=== PATIENT | female | born 1960 | race Caucasian/White ===

== ENCOUNTER 2020-07-15 01:23 | Emergency (ER) | payer SELFPAY ==
[~2020-07-15] VITALS: Ht 165 cm; Wt 104.3 kg
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
[2020-07-15] MEDS ORDERED: TRAM-42 PO (05:38)
[2020-07-15 05:45] VITALS: BP 156/84
--- NOTE | 2020-07-15 06:39 | Diagnostic Imaging Report ---
INDICATION: leg pain TECHNIQUE: AP and lateral views of the left tibia and fibula CORRELATION STUDY: None FINDINGS: The tibia and fibula are intact. There is no evidence for acute fracture. Limited visualized portions of the knee and ankle are unremarkable. Soft tissues are unremarkable. IMPRESSION: 1.Negative for acute bony abnormality of the leg. Dictated by: Dictated on workstation # [id number]
--- NOTE | 2020-07-15 06:39 | Diagnostic Imaging Report ---
INDICATION: knee pain TECHNIQUE: 3 views of the left knee CORRELATION STUDY: None FINDINGS: The joint spaces are maintained. The articular surfaces are smooth and preserved. There is no acute bony abnormality. Soft tissues are unremarkable. IMPRESSION: 1. Negative for acute bony abnormality of the knee. Dictated by: Dictated on workstation # [id number]
== END 2020-07-15 05:46 | disposition home or self-care (01) ==
LOC: ER 01:31
DX: S80.12XA Contusion of left lower leg, initial encounter (principal); S70.01XA Contusion of right hip, initial encounter; S70.02XA Contusion of left hip, initial encounter; M25.562 Pain in left knee; Z87.828 Personal history of other (healed) physical injury and trauma; W22.8XXA Striking against or struck by other objects, initial encounter
CPT/HCPCS: 36415; 73562; 73590; 85379

== ENCOUNTER 2020-08-05 01:34 | Emergency (ER) | payer MEDICAID ==
[~2020-08-05] VITALS: Ht 165 cm; Wt 108.0 kg
[~2020-08-05 01:34] MED LIST: TRAM-42 PO
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
[2020-08-05 02:21] LABS: BASOPHILS # (AUTO) 0.1 10^3/uL (0.0-0.1); BASOPHILS % (AUTO) 1 % (0-10); EOSINOPHILS # (AUTO) 0.2 10^3/uL (0.0-0.3); EOSINOPHILS % (AUTO) 2 % (0-10); HEMATOCRIT 39 % (35-52); HEMOGLOBIN 12.9 g/dL (11.5-16.0); LYMPHOCYTES # (AUTO) 1.5 10^3/uL (1.0-4.0); LYMPHOCYTES % (AUTO) 19 % (12-44); MEAN CORPUSCULAR HEMOGLOBIN 30 pg (25-34); MEAN CORPUSCULAR HGB CONC 33 g/dL (32-36); MEAN CORPUSCULAR VOLUME 90 fL (80-99); MEAN PLATELET VOLUME 10.1 fL (9.0-12.2); MONOCYTES # (AUTO) 0.7 10^3/uL (0.0-1.0); MONOCYTES % (AUTO) 9 % (0-12); NEUTROPHILS # (AUTO) 5.4 10^3/uL (1.8-7.8); NEUTROPHILS % (AUTO) 68 % (42-75); PLATELET COUNT 241 10^3/uL (130-400)
[2020-08-05 02:31] LABS: ALBUMIN 3.8 GM/DL (3.2-4.5); CHLORIDE 109 MMOL/L (98-107); POTASSIUM 3.7 MMOL/L (3.6-5.0); SODIUM 142 MMOL/L (135-145)
[2020-08-05 02:32] LABS: CALCIUM 9.6 MG/DL (8.5-10.1)
[2020-08-05 02:34] LABS: GLUCOSE 85 MG/DL (70-105); TOTAL PROTEIN 6.8 GM/DL (6.4-8.2)
[2020-08-05 02:35] LABS: BILIRUBIN,TOTAL 0.2 MG/DL (0.1-1.0); CARBON DIOXIDE 19 MMOL/L (21-32)
[2020-08-05 02:37] LABS: ALKALINE PHOSPHATASE 88 U/L (40-136); GFR ESTIMATED > 60
[2020-08-05 02:38] LABS: BUN/CREATININE RATIO 31
[2020-08-05 02:40] LABS: ALANINE AMINOTRANSFERASE 10 U/L (0-55)
[2020-08-05 02:41] LABS: BILIRUBIN,URINE NEGATIVE (NEGATIVE); CLARITY,URINE CLEAR; COLOR,URINE YELLOW; GLUCOSE, URINE (UA) NEGATIVE (NEGATIVE); KETONES,URINE NEGATIVE (NEGATIVE); LEUKOCYTE ESTERASE ,URINE 2+ (NEGATIVE); NITRITE,URINE NEGATIVE (NEGATIVE); PROTEIN,URINE NEGATIVE (NEGATIVE)
[2020-08-05 03:06] LABS: BACTERIA,URINE MODERATE /HPF
[2020-08-05 03:07] LABS: AMPHETAMINE SCREEN, URINE NEGATIVE (NEGATIVE); BARBITURATE SCREEN URINE NEGATIVE (NEGATIVE); BENZODIAZEPINES SCREEN URINE NEGATIVE (NEGATIVE); CANNABINOID SCREEN, URINE NEGATIVE (NEGATIVE); COCAINE SCREEN URINE NEGATIVE (NEGATIVE); METHADONE STAT NEGATIVE (NEGATIVE); METHAMPHETAMINE SCREEN URINE S NEGATIVE (NEGATIVE); OPIATE SCREEN URINE NEGATIVE (NEGATIVE); OXYCODONE STAT NEGATIVE (NEGATIVE); PROPOXYPHENE STAT NEGATIVE (NEGATIVE); SQUAMOUS EPITHELIAL CELL,UR 0-2 /HPF; TRICYCLIC ANTIDEPRESSANTS SCRE NEGATIVE (NEGATIVE)
[2020-08-05] MEDS ORDERED: TRM50T PO (03:33)
[2020-08-05] MEDS ORDERED: CYCL10TA9 PO (03:33)
[2020-08-05] MEDS ORDERED: NITR-65 PO (03:37)
[2020-08-05 04:27] VITALS: BP 127/88
[2020-08-05] MEDS ORDERED: CYCLOBENZAPRINE 10 MG (FLEXERIL) TAB PO ONE (04:30)
--- NOTE | 2020-08-05 08:03 | Diagnostic Imaging Report ---
INDICATION: Fall with right-sided chest pain. Frontal chest obtained at 0253 a.m. Heart is borderline in size. Mediastinal silhouette is unremarkable. The lungs are clear. There is no pneumothorax or pleural fluid. IMPRESSION: Borderline heart size with no acute process in the chest. Dictated by: Dictated on workstation # [id number]
--- NOTE | 2020-08-05 08:03 | Diagnostic Imaging Report ---
INDICATION: Fall with right shoulder pain AP, oblique, and transscapular views of the right shoulder are obtained. No fracture or acute bony abnormality is seen. There is mild degenerative change of the glenohumeral joint and AC joint. IMPRESSION: Mild degenerative findings, no acute fracture or dislocation. Dictated by: Dictated on workstation # [id number]
--- NOTE | 2020-08-05 08:04 | Diagnostic Imaging Report ---
INDICATION: Right femur pain post trauma AP and lateral views of the right femur are obtained. No fracture or acute bony abnormality is seen. Right hip prosthesis appears in good alignment. IMPRESSION: No acute abnormality of right femur. Dictated by: Dictated on workstation # [id number]
--- NOTE | 2020-08-05 08:08 | Diagnostic Imaging Report ---
Indication: Pelvic pain and right hip pain AP pelvis and AP and oblique views of the right hip are obtained. No fracture or acute bony abnormality is seen. Right hip prosthesis appears in good alignment. IMPRESSION: No acute abnormality of the pelvis or right hip. Well aligned right hip prosthesis. Dictated by: Dictated on workstation # [id number]
--- NOTE | 2020-08-05 08:19 | Diagnostic Imaging Report ---
INDICATION: Fall with right-sided pain. TECHNIQUE: Multiple contiguous axial images were obtained through the chest, abdomen, and pelvis after the administration of intravenous contrast. Auto Exposure Controls were utilized during the CT exam to meet ALARA standards for radiation dose reduction. CT chest, abdomen, and pelvis obtained with IV contrast. There is no prior study for comparison. CT chest findings: There is no evidence of mediastinal hematoma or aortic injury. There is no mediastinal or hilar adenopathy. There is no chest wall hematoma or mass. There is no pleural or pericardial fluid. Lung parenchymal windows demonstrate no pulmonary infiltrates or nodules. There is no pneumothorax. Bony windows in the chest show no fractures. A stimulator device is seen overlying the thoracic canal. CT abdomen and pelvis findings: The liver appears unremarkable. The gallbladder is absent. Spleen, adrenals, pancreas, and kidneys appear intact. There is a small cyst in the left kidney. There is no retroperitoneal hematoma or mass. There is no ascites or hemoperitoneum. Visualized bowel loops are unremarkable. Patient has had previous hysterectomy. There is a right hip prosthesis. Bony windows show no fracture. There are facet degenerative changes in the lumbar spine. IMPRESSION: CT chest shows no acute traumatic process in the chest. CT abdomen and pelvis shows no evidence of solid organ injury or free fluid. There is a small cyst in the left kidney. Patient has had prior cholecystectomy and hysterectomy. Dictated by: Dictated on workstation # [id number]
== END 2020-08-05 04:27 | disposition home or self-care (01) ==
LOC: EDUNIT# 01:34 → ER 01:38
DX: M25.511 Pain in right shoulder (principal); M25.551 Pain in right hip; R07.89 Other chest pain; N39.0 Urinary tract infection, site not specified; E66.01 Morbid (severe) obesity due to excess calories; Z68.38 Body mass index [BMI] 38.0-38.9, adult
CPT/HCPCS: 71045; 71260; 73030; 73502; 73552; 74177; 80053; 80306; 81000; 85025; 87077; 87088; 93041; 99284; G0480; 36415; 80320; 87186

== ENCOUNTER 2020-09-11 17:22 | Emergency (ER) | payer MEDICARE, MEDICAID ==
[~2020-09-11] VITALS: Ht 165.1 cm; Wt 104.3 kg
[~2020-09-11 17:22] MED LIST changes: +CYCL10TA9 PO; +NITR-65 PO; +TRM50T PO
[2020-09-11] MEDS ORDERED: ONDANSETRON 4 MG/2 ML (SDV) Z0FRAN IV ONE (17:45)
[2020-09-11] MEDS ORDERED: ACETAMINOPHEN 325 MG TABLET PO ONE (17:45)
[2020-09-11] MEDS ORDERED: LACTATED RINGERS 1,000 ML IV SCH (17:45)
[2020-09-11 18:04] LABS: BASOPHILS % (AUTO) 0 % (0-10); EOSINOPHILS % (AUTO) 0 % (0-10); HEMATOCRIT 46 % (35-52); HEMOGLOBIN 15.3 g/dL (11.5-16.0); LYMPHOCYTES # (AUTO) 0.7 10^3/uL (1.0-4.0); LYMPHOCYTES % (AUTO) 9 % (12-44); MEAN CORPUSCULAR HEMOGLOBIN 29 pg (25-34); MEAN CORPUSCULAR HGB CONC 33 g/dL (32-36); MEAN CORPUSCULAR VOLUME 87 fL (80-99); MEAN PLATELET VOLUME 10.1 fL (9.0-12.2); MONOCYTES # (AUTO) 0.2 10^3/uL (0.0-1.0); MONOCYTES % (AUTO) 2 % (0-12); NEUTROPHILS # (AUTO) 6.8 10^3/uL (1.8-7.8); NEUTROPHILS % (AUTO) 88 % (42-75); PLATELET COUNT 168 10^3/uL (130-400); WHITE BLOOD COUNT 7.7 10^3/uL (4.3-11.0)
--- NOTE | 2020-09-11 18:07 | ED Respiratory ---
General Chief Complaint: Respiratory Problems Stated Complaint: FEVER, DIARRHEA Nursing Triage Note: Pt reports being exposed to COVID last Tuesday. Pt reports symptoms began last Tuesday and pt tested positive on Tuesday. Pt c/o green diarrhea, fatigue, malaise, cough, runny nose, nose burning, and states, "I feel like I've een hit in the face." Source: patient Exam Limitations: no limitations History of Present Illness Date Seen by Provider: Sep 11, 2020 Time Seen by Provider: 18:04 Initial Comments To ER with reports that she was exposed to Covid last Tuesday symptoms became noticeable on Tuesday the and she tested positive on Tuesday the . She is unvaccinated against covid. Timing/Duration: constant Severity: moderate Prior Episodes/Possible Cause: no prior episodes Modifying Factors: Improves With Coughing Allergies and Home Medications Allergies Coded Allergies: lithium (Verified Allergy, Unknown, 07/15/20) Home Medications Cefdinir 300 Mg Capsule, 300 MG PO BID Prescribed by: EVA AARON on 09/11/201914 Cyclobenzaprine HCl 10 Mg Tablet, 10 MG PO Q8H PRN for SPASMS Prescribed by: BERNIE CASTLE on 08/05/20 033 Nitrofurantoin Monohyd/M-Cryst 100 Mg Capsule, 1 TAB PO BID Prescribed by: BERNIE CASTLE on 08/05/20 033 Tramadol HCl 50 Mg Tablet, 50 MG PO Q6H PRN for PAIN-BREAKTHROUGH Prescribed by: RONY HEARN on 07/15/20 0539 Tramadol HCl 50 Mg Tablet, 50 MG PO Q6H PRN for PAIN Prescribed by: BERNIE CASTLE on 08/05/20 033 Patient Home Medication List Home Medication List Reviewed: Yes Review of Systems Review of Systems Constitutional: see HPI, chills, fever, malaise EENTM: see HPI Respiratory: see HPI, cough, short of breath Cardiovascular: no symptoms reported Genitourinary: no symptoms reported Musculoskeletal: no symptoms reported Skin: no symptoms reported Psychiatric/Neurological: No Symptoms Reported Hematologic/Lymphatic: No Symptoms Reported Past Gsrbbvj-Nhjdgq-Bgldgu Hx Patient Social History Tobacco Use?: No Substance use?: No Alcohol Use?: No Pt feels they are or have been: No Seasonal Allergies Seasonal Allergies: Yes Past Medical History Surgeries: Yes Abdominal, Appendectomy, Gallbladder, Hysterectomy, Joint Replacement, Oophorectomy, Orthopedic Respiratory: No Cardiac: No 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 Sexually Transmitted Disease: Yes (HERPES) Genitourinary: No Gastrointestinal: Yes (S/P GASTRIC BYPASS; CHOLECYSTECTOMY) Gastroesophageal Reflux Musculoskeletal: Yes (CHRONIC PAIN COMPLAINTS-R SHOULDER,R HIP,BACK;S/P L-SPINE SURG;SPINE STIMUL) Back Injury, Chronic Back Pain, Spasms Endocrine: Yes (ADDISION'S DISEASE; MORBID OBESITY) Hypothyroidsim HEENT: No Cancer: Yes (NON-HODGKIN'S LYMPHOMA) Lymphoma Did You Recieve Any Treatments: Yes What Type of Treatment Did You: Chemotherapy Psychosocial: Yes Anxiety, Depression Integumentary: No Blood Disorders: No Adverse Reaction/Blood Tranf: No Family Medical History PAST SURGICAL HISTORY: -HYSTERECTOMY/BILATERAL SALPINGO-OOPHORECTOMY -GASTRIC BYPASS -LUMBAR SPINE SURGERY -SPINAL STIMULATOR -OPEN CHOLECYSTECTOMY -APPENDECTOMY -RIGHT HIP REPLACEMENT Physical Exam Vital Signs - First Documented 09/11/20 17:30 Temp 38.0 Pulse 97 Resp 16 B/P (MAP) 133/95 (108) Pulse Ox 93 O2 Delivery Room Air Capillary Refill : Less Than 3 Seconds Height: '" Weight: lbs. oz. kg; 38.00 BMI Method: General Appearance: WD/WN, no apparent distress, obese, other (Heart rate of 83 oxygen saturation of 93 to 94% on room air.) Eyes: Bilateral Eye Normal Inspection, Bilateral Eye PERRL, Bilateral Eye EOMI HEENT: PERRL/EOMI, normal ENT inspection Respiratory: lungs clear, normal breath sounds, no respiratory distress, no accessory muscle use Cardiovascular: regular rate, rhythm, no murmur Gastrointestinal: normal bowel sounds, non tender, soft Neurologic/Psychiatric: alert, normal mood/affect, oriented x 3 Skin: normal color, warm/dry Progress/Results/Core Measures Suspected Sepsis SIRS Temperature: Pulse: 97 Respiratory Rate: 16 Laboratory Tests 09/11/20 17:54: White Blood Count 7.7 Blood Pressure 133 /95 Mean: 108 Laboratory Tests 09/11/20 17:54: Creatinine 0.71, Platelet Count 168, Total Bilirubin 0.3 Results/Orders Lab Results Laboratory Tests Test 09/11/20 17:54 Range/Units White Blood Count 7.7 4.3-11.0 10^3/uL Red Blood Count 5.33 H 3.80-5.11 10^6/uL Hemoglobin 15.3 11.5-16.0 g/dL Hematocrit 46 35-52 % Mean Corpuscular Volume 87 80-99 fL Mean Corpuscular Hemoglobin 29 25-34 pg Mean Corpuscular Hemoglobin Concent 33 32-36 g/dL Red Cell Distribution Width 12.5 10.0-14.5 % Platelet Count 168 130-400 10^3/uL Mean Platelet Volume 10.1 9.0-12.2 fL Immature Granulocyte % (Auto) 0 % Neutrophils (%) (Auto) 88 H 42-75 % Lymphocytes (%) (Auto) 9 L 12-44 % Monocytes (%) (Auto) 2 0-12 % Eosinophils (%) (Auto) 0 0-10 % Basophils (%) (Auto) 0 0-10 % Neutrophils # (Auto) 6.8 1.8-7.8 10^3/uL Lymphocytes # (Auto) 0.7 L 1.0-4.0 10^3/uL Monocytes # (Auto) 0.2 0.0-1.0 10^3/uL Eosinophils # (Auto) 0.0 0.0-0.3 10^3/uL Basophils # (Auto) 0.0 0.0-0.1 10^3/uL Immature Granulocyte # (Auto) 0.0 0.0-0.1 10^3/uL Neutrophils % (Manual) 81 % Lymphocytes % (Manual) 12 % Monocytes % (Manual) 4 % Eosinophils % (Manual) 0 % Basophils % (Manual) 0 % Band Neutrophils 3 % Poikilocytosis SLIGHT D-Dimer 1.05 H 0.00-0.49 UG/ML Sodium Level 141 135-145 MMOL/L Potassium Level 3.4 L 3.6-5.0 MMOL/L Chloride Level 105 98-107 MMOL/L Carbon Dioxide Level 21 21-32 MMOL/L Anion Gap 15 H 5-14 MMOL/L Blood Urea Nitrogen 12 7-18 MG/DL Creatinine 0.71 0.60-1.30 MG/DL Estimat Glomerular Filtration Rate 84 BUN/Creatinine Ratio 17 Glucose Level 111 H 70-105 MG/DL Calcium Level 9.3 8.5-10.1 MG/DL Corrected Calcium 9.3 8.5-10.1 MG/DL Total Bilirubin 0.3 0.1-1.0 MG/DL Aspartate Amino Transf (AST/SGOT) 29 5-34 U/L Alanine Aminotransferase (ALT/SGPT) 23 0-55 U/L Alkaline Phosphatase 84 40-136 U/L C-Reactive Protein High Sensitivity 25.60 H 0.00-0.50 MG/DL Total Protein 7.7 6.4-8.2 GM/DL Albumin 4.0 3.2-4.5 GM/DL Procalcitonin 28.60 H <0.10 NG/ML My Orders Orders - EVA AARON APRN Ct Angio Chest W (09/11/20 18:38) Iohexol Injection (Omnipaque 350 Mg/Ml 1 (09/11/20 19:00) Received Contrast (Hold Metformin- Contr (09/11/20 19:00) Ns (Ivpb) (Sodium Chloride 0.9% Ivpb Bag (09/11/20 19:00) Urinalysis (09/11/20 18:50) Blood Culture (09/11/20 18:50) Ceftriaxone (Rocephin) (09/11/20 19:00) Medications Given in ED Current Medications Medications Dose Ordered Sig/Trino Route Start Time Stop Time Status Last Admin Dose Admin Acetaminophen 650 mg ONCE ONCE PO 09/11/20 17:45 09/11/20 17:46 DC 09/11/20 17:52 650 MG Iohexol 100 ml ONCE ONCE IV 09/11/20 19:00 09/11/20 19:01 DC 09/11/20 18:52 83 ML Ondansetron HCl 4 mg ONCE ONCE IV 09/11/20 17:45 09/11/20 17:46 DC 09/11/20 17:56 4 MG Sodium Chloride 100 ml ONCE ONCE IV 09/11/20 19:00 09/11/20 19:01 DC 09/11/20 18:52 80 ML Vital Signs/I&O 09/11/20 09/11/20 17:30 17:52 Temp 38.0 38.0 Pulse 97 Resp 16 B/P (MAP) 133/95 (108) Pulse Ox 93 O2 Delivery Room Air Capillary Refill : Less Than 3 Seconds Blood Pressure Mean: 108 Departure Communication (Admissions) Family Conversation NAME: SANTOS FINE MED REC#: [id number] PT STATUS: REG ER : 1960 PHYSICIAN: EVA AARON COLLAR SETTER ADMIT DATE: 09/11/20/ER Signed Date of Exam:09/11/20 CT ANGIO CHEST W PROCEDURE: CT angiography of the chest with contrast. TECHNIQUE: Multiple contiguous axial images were obtained through the chest after uneventful bolus administration of intravenous contrast. 3D reconstructed CTA MIP acquisitions were also performed. Auto Exposure Controls were utilized during the CT exam to meet ALARA standards for radiation dose reduction. INDICATION: Pneumonia, cough, chest pain COMPARISON: 08/05/2020. FINDINGS: There are new mild bilateral pulmonary infiltrates most pronounced in the right upper lobe. There is no pneumothorax or effusion. The heart is slightly enlarged. There is no pulmonary embolism or acute aortic pathology. No pericardial effusion seen. Visualized upper abdominal solid organs are normal. Osseous structures intact. IMPRESSION: 1. Mild bilateral pulmonary infiltrates 2. No pulmonary embolism is identified. Dictated by: Dictated on workstation # [id number] Dict: 09/11/201855 Trans: 09/11/201900 [facility] [id number] Interpreted by: SARAH BETH MENDEZ Electronically signed by: SARAH BETH MENDEZ 09/11/201900 I discussed with her the emergency use authorization of Regeneron. Discussed with her my recommendation that she get it. She is agreeable and would like to have this arranged. I discussed with her that the scheduling department would call her tomorrow to have this arranged. EKG shows sinus rhythm rate of 98 normal intervals no ectopy Impression Primary Impression: COVID-19 Disposition: 01 HOME, SELF-CARE Condition: Stable Departure-Patient Inst. Decision time for Depature: 18:11 Referrals: [facility] (PCP/Family) Primary Care Physician Patient Instructions: COVID-19 ED, REGEN-COV (casirivimab and imdevimab) FDA Fact Sheet Add. Discharge Instructions: 1. The scheduling department will call you tomorrow with a time to show up for your Regeneron infusion. Of your markers of a bacterial infection was elevated. As such you do need an antibiotic. You will need to fill this in the morning at the [facility] drive-through so that you do not go into the store. Continue to quarantine at home. All discharge instructions reviewed with patient and/or family. Voiced understanding. Scripts Cefdinir (Cefdinir) 300 Mg Capsule 300 MG PO BID, #14 CAP Prov: EVA AARON APRN 09/11/20 EVA AARON APRN Sep 11, 2020 18:07
[2020-09-11 18:19] LABS: POTASSIUM 3.4 MMOL/L (3.6-5.0)
[2020-09-11 18:21] LABS: BAND NEUTROPHILS 3 %; BASOPHILS % (MANUAL) 0 %; CALCIUM 9.3 MG/DL (8.5-10.1); EOSINOPHILS % (MANUAL) 0 %; LYMPHOCYTES % (MANUAL) 12 %; MONOCYTES % (MANUAL) 4 %; NEUTROPHILS % (MANUAL) 81 %; POIKILOCYTOSIS SLIGHT
[2020-09-11 18:22] LABS: TOTAL PROTEIN 7.7 GM/DL (6.4-8.2)
[2020-09-11 18:24] LABS: BILIRUBIN,TOTAL 0.3 MG/DL (0.1-1.0)
[2020-09-11 18:26] LABS: CREATININE SERUM 0.71 MG/DL (0.60-1.30)
[2020-09-11] MEDS ORDERED: cefTRIAXone 1,000 MG in WATER (STERILE) FOR INJECTION 10 ML IV ONE (19:00)
[2020-09-11] MEDS ORDERED: IOHEXOL 350 MG/ML 100 ML (OMNIPAQUE 350) VIAL IV ONE (19:00)
[2020-09-11] MEDS ORDERED: NS 100 ML (IVPB) BAG IV ONE (19:00)
[2020-09-11] MEDS ORDERED: HOLD METFORMIN - RECEIVED CONTRAST 20 ML VIAL IV SCH (19:00)
--- NOTE | 2020-09-11 19:00 | Diagnostic Imaging Report ---
PROCEDURE: CT angiography of the chest with contrast. TECHNIQUE: Multiple contiguous axial images were obtained through the chest after uneventful bolus administration of intravenous contrast. 3D reconstructed CTA MIP acquisitions were also performed. Auto Exposure Controls were utilized during the CT exam to meet ALARA standards for radiation dose reduction. INDICATION: Pneumonia, cough, chest pain COMPARISON: 08/05/2020. FINDINGS: There are new mild bilateral pulmonary infiltrates most pronounced in the right upper lobe. There is no pneumothorax or effusion. The heart is slightly enlarged. There is no pulmonary embolism or acute aortic pathology. No pericardial effusion seen. Visualized upper abdominal solid organs are normal. Osseous structures intact. IMPRESSION: 1. Mild bilateral pulmonary infiltrates 2. No pulmonary embolism is identified. Dictated by: Dictated on workstation # [id number]
[2020-09-11] MEDS ORDERED: CEFD300C3 PO (19:15)
[2020-09-11 20:04] VITALS: BP 150/92
== END 2020-09-11 20:04 | disposition home or self-care (01) ==
LOC: EDUNIT# 17:22 → ER 17:26
DX: U07.1 COVID-19 (principal); E66.01 Morbid (severe) obesity due to excess calories; E27.1 Primary adrenocortical insufficiency; Z68.38 Body mass index [BMI] 38.0-38.9, adult
CPT/HCPCS: 36415; 71275; 80053; 84145; 85007; 85027; 85379; 86141; 87040; 93005; 93041

== ENCOUNTER 2020-09-12 07:17 | Inpatient (IN) | payer MEDICARE, MEDICAID ==
[~2020-09-12] VITALS: Ht 165 cm; Wt 112.1 kg
[~2020-09-12 07:17] MED LIST changes: +CEFD300C3 PO
[2020-09-12] MEDS ORDERED: LACTATED RINGERS 2,000 ML IV ONE (07:32)
[2020-09-12 07:37] LABS: ABG BASE EXCESS -8.7 MMOL/L (-2.5-2.5); ABG OXYGEN SATURATION 98 % (94-100); ABG PCO2 29 MMHG (35-45); ABG PH 7.35 (7.37-7.43); ABG PO2 127 MMHG (79-93); ABG TCO2 16.1 MMOL/L (21.0-31.0)
[2020-09-12 07:40] LABS: ALLENS TEST YES-POS
[2020-09-12 07:41] LABS: INSPIRED O2 4L; PATIENT TEMP 103.7; VENTILATOR NO
[2020-09-12] MEDS ORDERED: LACTATED RINGERS 1,000 ML IV ONE ×2 (07:45→09:15)
[2020-09-12 07:49] LABS: ALBUMIN 3.8 GM/DL (3.2-4.5); POTASSIUM 3.2 MMOL/L (3.6-5.0)
[2020-09-12] MEDS ORDERED: VANCOMYCIN INJECTION 2,000 MG in NS IV 500 ML 500 ML IV ONE (07:50)
[2020-09-12 07:51] LABS: CALCIUM 8.9 MG/DL (8.5-10.1)
[2020-09-12 07:52] LABS: TOTAL PROTEIN 7.3 GM/DL (6.4-8.2)
[2020-09-12 07:53] LABS: BILIRUBIN,TOTAL 0.3 MG/DL (0.1-1.0)
[2020-09-12 07:55] LABS: BASOPHILS % (AUTO) 0 % (0-10); CREATININE SERUM 0.93 MG/DL (0.60-1.30); EOSINOPHILS % (AUTO) 0 % (0-10); HEMATOCRIT 44 % (35-52); HEMOGLOBIN 14.6 g/dL (11.5-16.0); LYMPHOCYTES # (AUTO) 0.6 10^3/uL (1.0-4.0); LYMPHOCYTES % (AUTO) 8 % (12-44); MEAN CORPUSCULAR HEMOGLOBIN 28 pg (25-34); MEAN CORPUSCULAR HGB CONC 33 g/dL (32-36); MEAN CORPUSCULAR VOLUME 86 fL (80-99); MEAN PLATELET VOLUME 10.2 fL (9.0-12.2); MONOCYTES # (AUTO) 0.3 10^3/uL (0.0-1.0); MONOCYTES % (AUTO) 4 % (0-12); NEUTROPHILS # (AUTO) 6.6 10^3/uL (1.8-7.8); NEUTROPHILS % (AUTO) 87 % (42-75); WHITE BLOOD COUNT 7.6 10^3/uL (4.3-11.0)
--- NOTE | 2020-09-12 07:55 | ED General ---
General Chief Complaint: Respiratory Problems Stated Complaint: SOB;COVID Source of Information: Patient Exam Limitations: No Limitations History of Present Illness Date Seen by Provider: Sep 12, 2020 Time Seen by Provider: 07:20 Initial Comments Patient to ER by EMS from home with chief complaint she had some shaking seizure-like activity witnessed by family. She was sitting up and slumped back into her bed. She was complaining of shortness of breath and not feeling well. She was diagnosed 1 week ago with COVID-19 symptoms started 2 days prior to that and she thinks he was exposed a day before that. She is had a fever 103.7 per EMS. She does not have a history of epilepsy. She does not have a history Of diabetes. She does have a history of non-Hodgkin's lymphoma on chemotherapy. The patient does not answer questions or follow commands nor does she contribute to history in any meaningful way. History per EMS, nursing staff and previous records from yesterday when she was in the ER. 1630: Patient's daughter called and states that she has been trying to get further records from her doctors in [place]. She is being treated for non- Hodgkin's lymphoma by an oncologist in [place]. She is off chemo because it was too slow-growing. She had a pituitary tumor of some sort, fibromyalgia, left hip replacement that had to be adjusted in surgery after a fall. She has diabetes but not on insulin. She has COPD and wheeze to be a heavy smoker years ago. She has a history of bipolar disorder. She has a sulfa allergy and says that specifically she cannot take penicillin because it makes her short of air but has tolerated other penicillins. OxyContin makes her nauseated. She states that she feels her mother would want to be a full code and is okay to be intubated if necessary. She does not however feel her mother would want futile care. Allergies and Home Medications Allergies Coded Allergies: lithium (Verified Allergy, Unknown, 07/15/20) Home Medications Cefdinir 300 Mg Capsule, 300 MG PO BID Prescribed by: EVA AARON on 09/11/201914 Cyclobenzaprine HCl 10 Mg Tablet, 10 MG PO Q8H PRN for SPASMS Prescribed by: BERNIE CASTLE on 08/05/20 033 Nitrofurantoin Monohyd/M-Cryst 100 Mg Capsule, 1 TAB PO BID Prescribed by: BERNIE CASTLE on 08/05/20 0337 Tramadol HCl 50 Mg Tablet, 50 MG PO Q6H PRN for PAIN-BREAKTHROUGH Prescribed by: RONY HEARN on 07/15/20 0539 Tramadol HCl 50 Mg Tablet, 50 MG PO Q6H PRN for PAIN Prescribed by: BERNIE CASTLE on 08/05/20 033 Patient Home Medication List Home Medication List Reviewed: Yes Review of Systems Review of Systems Constitutional: see HPI (Patient is unable to contribute to her history or review of systems.) Gastrointestinal: nausea All Other Systems Reviewed Negative Unless Noted: Yes Past Xbtjpdn-Nkhznh-Gybicf Hx Patient Social History Tobacco Use?: Yes Smoking Status: Current Everyday Smoker Use of E-Cig and/or Vaping dev: No Substance use?: No Seasonal Allergies Seasonal Allergies: Yes Past Medical History Surgeries: Yes Abdominal, Appendectomy, Gallbladder, Hysterectomy, Joint Replacement, Oophorectomy, Orthopedic Respiratory: No Cardiac: No 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 Sexually Transmitted Disease: Yes (HERPES) Genitourinary: No Gastrointestinal: Yes (S/P GASTRIC BYPASS; CHOLECYSTECTOMY) Gastroesophageal Reflux Musculoskeletal: Yes (CHRONIC PAIN COMPLAINTS-R SHOULDER,R HIP,BACK;S/P L-SPINE SURG;SPINE STIMUL) Back Injury, Chronic Back Pain, Spasms Endocrine: Yes (ADDISION'S DISEASE; MORBID OBESITY) Hypothyroidsim HEENT: No Cancer: Yes (NON-HODGKIN'S LYMPHOMA) Lymphoma Did You Recieve Any Treatments: Yes What Type of Treatment Did You: Chemotherapy Psychosocial: Yes Anxiety, Depression Integumentary: No Blood Disorders: No Adverse Reaction/Blood Tranf: No Family Medical History PAST SURGICAL HISTORY: -HYSTERECTOMY/BILATERAL SALPINGO-OOPHORECTOMY -GASTRIC BYPASS -LUMBAR SPINE SURGERY -SPINAL STIMULATOR -OPEN CHOLECYSTECTOMY -APPENDECTOMY -RIGHT HIP REPLACEMENT Physical Exam-Suspected Sepsis Physical Exam Vital Signs Vital Signs - First Documented 09/12/20 07:20 Temp 39.8 Pulse 114 Resp 24 B/P (MAP) 115/67 (83) O2 Delivery OxyMask O2 Flow Rate 5.00 FiO2 97 Capillary Refill : Height, Weight, BMI Height: '" Weight: lbs. oz. kg; 38.00 BMI Method: General Appearance: No Apparent Distress, WD/WN Eyes: Bilateral Eye Normal Inspection, Bilateral Eye PERRL, Bilateral Eye EOMI HEENT: PERRL/EOMI; No Pharynx Normal (Dry oral mucosa), No Moist Mucous Membranes Neck: Full Range of Motion, Normal Inspection, Non Tender, Supple Respiratory: Lungs Clear, Normal Breath Sounds, Accessory Muscle Use, Respiratory Distress (Moderate with oxygen saturation upper 80s low 90s on room air on arrival) Cardiovascular: Regular Rate, Rhythm, No Edema, Normal Peripheral Pulses, Tachycardia Gastrointestinal: Normal Bowel Sounds, Non Tender, Soft Extremity: Normal Capillary Refill, Normal Inspection, No Pedal Edema Neurologic/Psychiatric: Alert, No Motor/Sensory Deficits, Other (GCS 10) Skin: normal color, warm/dry Focused Exam Lactate Level 09/12/20 07:28: Lactic Acid Level 4.24*H 09/12/20 10:36: Lactic Acid Level 0.78 Lactic Acid Level Progress/Results/Core Measures Suspected Sepsis SIRS Temperature: Pulse: Respiratory Rate: Laboratory Tests 09/12/20 07:28: White Blood Count 7.6 Blood Pressure / Mean: 09/12/20 07:28: Lactic Acid Level 4.24*H 09/12/20 10:36: Lactic Acid Level 0.78 Laboratory Tests 09/12/20 07:28: Creatinine 0.93, INR Comment 1.2, Platelet Count 185, Total Bilirubin 0.3 Results/Orders Lab Results Laboratory Tests Test 09/12/20 07:24 09/12/20 07:28 09/12/20 07:45 09/12/20 10:36 Range/Units Blood Gas Puncture Site RR Blood Gas Patient Temperature 103.7 Arterial Blood pH 7.35 L 7.37-7.43 Arterial Blood Partial Pressure CO2 29 L 35-45 MMHG Arterial Blood Partial Pressure O2 127 H 79-93 MMHG Arterial Blood HCO3 15 *L 23-27 MMOL/L Arterial Blood Total CO2 16.1 L 21.0-31.0 MMOL/L Arterial Blood Oxygen Saturation 98 94-100 % Arterial Blood Base Excess -8.7 L -2.5-2.5 MMOL/L Boubacar Test YES-POS Blood Gas Ventilator Setting NO Blood Gas Inspired Oxygen 4L Urine Opiates Screen NEGATIVE NEGATIVE Urine Oxycodone Screen NEGATIVE NEGATIVE Urine Methadone Screen NEGATIVE NEGATIVE Urine Propoxyphene Screen NEGATIVE NEGATIVE Urine Barbiturates Screen NEGATIVE NEGATIVE Ur Tricyclic Antidepressants Screen NEGATIVE NEGATIVE Urine Phencyclidine Screen NEGATIVE NEGATIVE Urine Amphetamines Screen NEGATIVE NEGATIVE Urine Methamphetamines Screen NEGATIVE NEGATIVE Urine Benzodiazepines Screen NEGATIVE NEGATIVE Urine Cocaine Screen NEGATIVE NEGATIVE Urine Cannabinoids Screen NEGATIVE NEGATIVE White Blood Count 7.6 4.3-11.0 10^3/uL Red Blood Count 5.15 H 3.80-5.11 10^6/uL Hemoglobin 14.6 11.5-16.0 g/dL Hematocrit 44 35-52 % Mean Corpuscular Volume 86 80-99 fL Mean Corpuscular Hemoglobin 28 25-34 pg Mean Corpuscular Hemoglobin Concent 33 32-36 g/dL Red Cell Distribution Width 12.6 10.0-14.5 % Platelet Count 185 130-400 10^3/uL Mean Platelet Volume 10.2 9.0-12.2 fL Immature Granulocyte % (Auto) 1 % Neutrophils (%) (Auto) 87 H 42-75 % Lymphocytes (%) (Auto) 8 L 12-44 % Monocytes (%) (Auto) 4 0-12 % Eosinophils (%) (Auto) 0 0-10 % Basophils (%) (Auto) 0 0-10 % Neutrophils # (Auto) 6.6 1.8-7.8 10^3/uL Lymphocytes # (Auto) 0.6 L 1.0-4.0 10^3/uL Monocytes # (Auto) 0.3 0.0-1.0 10^3/uL Eosinophils # (Auto) 0.0 0.0-0.3 10^3/uL Basophils # (Auto) 0.0 0.0-0.1 10^3/uL Immature Granulocyte # (Auto) 0.1 0.0-0.1 10^3/uL Neutrophils % (Manual) 85 % Lymphocytes % (Manual) 5 % Monocytes % (Manual) 5 % Band Neutrophils 5 % Blood Morphology Comment NORMAL Prothrombin Time 15.1 H 12.2-14.7 SEC INR Comment 1.2 0.8-1.4 Activated Partial Thromboplast Time 39 H 24-35 SEC Sodium Level 140 135-145 MMOL/L Potassium Level 3.2 L 3.6-5.0 MMOL/L Chloride Level 107 98-107 MMOL/L Carbon Dioxide Level 16 L 21-32 MMOL/L Anion Gap 17 H 5-14 MMOL/L Blood Urea Nitrogen 11 7-18 MG/DL Creatinine 0.93 0.60-1.30 MG/DL Estimat Glomerular Filtration Rate 62 BUN/Creatinine Ratio 12 Glucose Level 143 H 70-105 MG/DL Lactic Acid Level 4.24 *H 0.78 0.50-2.00 MMOL/L Calcium Level 8.9 8.5-10.1 MG/DL Corrected Calcium 9.1 8.5-10.1 MG/DL Total Bilirubin 0.3 0.1-1.0 MG/DL Aspartate Amino Transf (AST/SGOT) 23 5-34 U/L Alanine Aminotransferase (ALT/SGPT) 18 0-55 U/L Alkaline Phosphatase 80 40-136 U/L C-Reactive Protein High Sensitivity 30.37 H 0.00-0.50 MG/DL Total Protein 7.3 6.4-8.2 GM/DL Albumin 3.8 3.2-4.5 GM/DL Procalcitonin 80.53 H <0.10 NG/ML Urine Color YELLOW Urine Clarity CLEAR Urine pH 6.5 5-9 Urine Specific Rex 1.025 H 1.016-1.022 Urine Protein 2+ H NEGATIVE Urine Glucose (UA) NEGATIVE NEGATIVE Urine Ketones 3+ H NEGATIVE Urine Nitrite NEGATIVE NEGATIVE Urine Bilirubin 1+ H NEGATIVE Urine Urobilinogen 0.2 < = 1.0 MG/DL Urine Leukocyte Esterase NEGATIVE NEGATIVE Urine RBC (Auto) TRACE-I NEGATIVE Urine RBC 0-2 /HPF Urine WBC 0 /HPF Urine Crystals NONE /LPF Urine Bacteria NEGATIVE /HPF Urine Casts NONE /LPF Urine Mucus NEGATIVE /LPF Urine Culture Indicated NO Test 09/12/20 15:50 Range/Units My Orders Orders - TOMER MARTINEZ Arterial Blood Gas (09/12/20 07:30) Lactated Ringers (Lr 1000 Ml Iv Solution (09/12/20 07:32) Cbc With Automated Diff (09/12/20 07:31) Comprehensive Metabolic Panel (09/12/20 07:31) Blood Culture (09/12/20 07:31) Sputum Culture (09/12/20 07:31) Urinalysis (09/12/20 07:31) Urine Culture (09/12/20 07:31) Protime With Inr (09/12/20 07:31) Partial Thromboplastin Time (09/12/20 07:31) Chest 1 View, Ap/Pa Only (09/12/20 07:31) Ed Iv/Invasive Line Start (09/12/20 07:31) Ed Iv/Invasive Line Start (09/12/20 07:31) Ekg Tracing (09/12/20 07:31) Vital Signs Adult Sepsis Patie Q15M (09/12/20 07:31) O2 (09/12/20 07:31) Remove Rings In Anticipation O (09/12/20 07:31) Lactic Acid Analyzer (09/12/20 07:31) Lactated Ringers (Lr 1000 Ml Iv Solution (09/12/20 07:45) Procalcitonin (Pct) (09/12/20 07:45) Hs C Reactive Protein (09/12/20 07:45) Ct Head Wo (09/12/20 07:45) Vancomycin Injection (Vancomycin Injecti (09/12/20 07:50) Pharmacy To Dose (Pharmacy To Dose) (09/12/20 08:00) Cefepime Injection (Maxipime Injection) (09/12/20 08:00) Piperacillin Sodium/Tazobactam (Zosyn Vi (09/12/20 08:00) Manual Differential (09/12/20 07:28) Acetaminophen Suppository (Tylenol Suppo (09/12/20 08:00) Catheter(Urinary) Insert & Ass 03,15 (09/12/20 07:55) Ed Iv/Invasive Line Start (09/12/20 08:03) Ns Iv 500 Ml (Sodium Chloride 0.9%) (09/12/20 08:15) Drug Screen Stat (Urine) (09/12/20 08:03) Covid-19 External Lab Results (09/12/20 08:03) Hydrocortisone Injection (Solu-Cortef In (09/12/20 08:45) Lactated Ringers (Lr 1000 Ml Iv Solution (09/12/20 09:15) Ketorolac Injection (Toradol Injection) (09/12/20 09:30) Csf Cell Count (09/12/20 16:02) Csf Glucose (09/12/20 16:02) Csf Total Protein (09/12/20 16:02) Csf Culture (09/12/20 16:02) Medications Given in ED Current Medications Medications Dose Ordered Sig/Trino Route Start Time Stop Time Status Last Admin Dose Admin Acetaminophen 650 mg ONCE ONCE ID 09/12/20 08:00 09/12/20 08:01 DC 09/12/20 08:37 650 MG Cefepime HCl 1000 mg/Sterile Water 10 ml @ 200 mls/hr ONCE ONCE IV 09/12/20 08:00 09/12/20 08:02 DC 09/12/20 08:54 200 MLS/HR Hydrocortisone Sodium Succinate 100 mg ONCE ONCE IV 09/12/20 08:45 09/12/20 08:46 DC 09/12/20 08:50 100 MG Lactated Ringer's 1,000 ml @ 0 mls/hr Q0M ONCE IV 09/12/20 07:45 09/12/20 07:51 DC 09/12/20 08:10 1,000 MLS/HR Piperacillin Sod/ Tazobactam Sod 4.5 gm/Sodium Chloride 100 ml @ 200 mls/hr ONCE ONCE IV 09/12/20 08:00 09/12/20 08:29 DC 09/12/20 09:16 200 MLS/HR Sodium Chloride 500 ml @ 0 mls/hr Q0M ONCE IV 09/12/20 08:15 09/12/20 08:16 DC 09/12/20 09:06 500 MLS/HR Vancomycin HCl 2000 mg/Sodium Chloride 500 ml @ 260 mls/hr 0750 ONCE IV 09/12/20 07:50 09/12/20 09:45 DC 09/12/20 09:02 260 MLS/HR Vital Signs/I&O 09/12/20 09/12/20 09/12/20 09/12/20 07:20 07:20 08:33 08:37 Temp 39.8 39.8 39.8 Pulse 114 109 Resp 24 22 B/P (MAP) 115/67 (83) 110/59 (76) O2 Delivery OxyMask OxyMask OxyMask O2 Flow Rate 5.00 4.00 3.00 FiO2 97 Capillary Refill : Progress Note #1: Time: 08:01 Progress Note She has been decreased mental status since her seizure-like activity. This is far too long to be explained just by postictal. She is not having any other neurologic deficits but will get a CT to rule out bleeds and look for signs of infection and will probably do a lumbar puncture. Labs, Colbert catheter, 2 L, Zosyn cefepime and vancomycin for empiric meningitis coverage. She has a known history of COVID-19. Yesterday she had a pro calcitonin of 25 which is a concerning. 2500 cc will be greater than 30 mL/kg based on an adjusted ideal body weight of 167 pounds. ABG demonstrates metabolic acidosis with some respiratory compensation and adequate oxygenation. Will turn her oxygen mask down to 3 L. Lactate indicates septic shock. Her low blood pressure, shock and decreased mentation may also be adrenal crisis so we will give her 100 mg IV hydrocortisone and 50 mg every 8 IV hydrocortisone for her Covid. Progress Note #2: Time: 10:48 Progress Note After a dose of hydrocortisone and some IV fluids the patient's mentation has significantly improved. She indicates she has a 10 out of 10 headache. Her oxygen is maintaining on 3 L by O2 mask at around 93 to 94% better ABG reveals that she is actually oxygenating better than that probably owing to peripheral vasoconstriction. I suspect that COVID-19 could answer all of the problem she i s having. We will still go ahead and get the CTA to rule out any significant intracranial pathology. ECG Initial ECG Impression Date: Sep 12, 2020 Initial ECG Impression Time: 07:38 Initial ECG Rate: 134 Initial ECG Rhythm: S.Tach Initial ECG Intervals: QT (505) Initial ECG Impression: Nonspecific Changes Comment Sinus tachycardia with some breathing and motion artifact but no clinically relevant ST changes. Diagnostic Imaging Diagonstic Imaging: Xray Plain Films/CT/US/NM/MRI: chest Comments [facility] [place], [place] NAME: [facility] REC#: [id number] PT STATUS: REG ER : 1960 PHYSICIAN: TOMER MARTINEZ MD ADMIT DATE: 09/12/20/ER Draft Date of Exam:09/12/20 CHEST 1 VIEW, AP/PA ONLY Indication: Respiratory distress Portable chest 8:24 AM There appears to be some small patchy peripheral infiltrates in both lungs. Heart size and pulmonary vascularity are normal. There are no effusions or pneumothoraces. IMPRESSION: Small patchy peripheral infiltrates in the lungs consistent with COVID pneumonia. Report was faxed to [facility] by jhonatan at 8:30AM. Dictated on workstation # [id number] Dict: 09/12/20 0827 Trans: 09/12/20 0830 [facility] [id number] Interpreted by: СВЕТЛАНА MURO MD Electronically signed by: Reviewed: Reviewed by Me Diagonstic Imaging: CT Plain Films/CT/US/NM/MRI: head Comments [facility] [place] [place] NAME: [facility] REC#: [id number] PT STATUS: REG ER : 1960 PHYSICIAN: TOMER MARTINEZ MD ADMIT DATE: 09/12/20/ER Signed Date of Exam:09/12/20 CT HEAD WO EXAMINATION: CT head without contrast. TECHNIQUE: Multiple contiguous axial images were obtained through the brain without the use of intravenous contrast. All CT scans use one or more of the following dose optimizing techniques: automated exposure control, MA and/or KvP adjustment based on patient size and exam type or iterative reconstruction. HISTORY: Altered mental status. Seizure. COVID infection. COMPARISON: None available. FINDINGS: There is a small amount of hyperintense material along the left convexity with additional small amount of isointense to hypointense fluid and pneumocephalus. This collection measures 0.5 cm in maximum thickness. No associated mass effect or midline shift is seen. No evidence of uncal or tonsillar herniation. No large acute territorial ischemia. The ventricles are somewhat prominent compared to the cortical sulci. The basilar cisterns are patent. There is nonspecific preseptal soft tissue edema and inflammation overlying the left orbit. The globes are intact bilaterally. No post septal inflammatory changes are seen. There is age-indeterminate fracture involving the lateral aspect of the left orbital apex without associated hematoma. Fluid levels are seen in the left maxillary sinus and left sphenoid sinus. Mucosal thickening is seen in the bilateral frontal and ethmoid sinuses. The mastoid air cells are clear. No acute depressed calvarial fracture is seen. IMPRESSION: 1. Left convexity subdural collection with associated pneumocephalus. Findings may represent blood products secondary to trauma; however, the patient history does not correspond to significant trauma. Alternatively, these findings may represent extra sinus spread of infection with associated meningitis/cerebritis. Recommend further evaluation with MRI brain with and without contrast. CT of the skull base with thin slices can also be performed to evaluate for occult skull base fracture. 2. Preseptal soft tissue edema on the left. No evidence of globe rupture or post septal soft tissues. There is age-indeterminate fracture in the lateral aspect of the left orbital apex. 3. Fluid levels in the left maxillary and sphenoid sinuses with mucosal thickening in the bilateral ethmoid and frontal sinuses. Again findings may represent acute sinusitis versus posttraumatic findings. Dictated by: Dictated on workstation # [id number] Dict: 09/12/20 1139 Trans: 09/12/20 1202 [facility] [id number] Interpreted by: COLLIN WATTS DO Electronically signed by: COLLIN WATTS DO 09/12/20 1202 Reviewed: Reviewed by Me Departure Communication (Admissions) Time/Spoke to Admitting Phy: 15:00 Discussed the case with Dr. Hedrick and she would like eICU, hydrocortisone 100 mg every 8 and we reviewed the labs. She agrees with broad-spectrum antibiotics. Time/Spoke to Consulting Phy: 15:05 Discussed the case with the [facility], eICU doctor and she agrees with the plan and will take care of the patient on consult. Impression Primary Impression: COVID-19 Additional Impressions: Meningitis Septic shock Acute respiratory failure with hypoxemia Disposition: ADMITTED INPATIENT Condition: Stable Admissions Decision to Admit Reason: Admit from ER (General) Decision to Admit/Date: Sep 12, 2020 Time/Decision to Admit Time: 14:44 Departure-Patient Inst. Referrals: [facility] (PCP/Family) Primary Care Physician TOMER MARTINEZ Sep 12, 2020 07:55
[2020-09-12 07:58] LABS: CLARITY,URINE CLEAR; COLOR,URINE YELLOW; GLUCOSE, URINE (UA) NEGATIVE (NEGATIVE); KETONES,URINE 3+ (NEGATIVE); LEUKOCYTE ESTERASE ,URINE NEGATIVE (NEGATIVE); NITRITE,URINE NEGATIVE (NEGATIVE); PH,URINE 6.5 (5-9); PROTEIN,URINE 2+ (NEGATIVE)
[2020-09-12] MEDS ORDERED: PHARMACY TO DOSE IV ONE (08:00)
[2020-09-12] MEDS ORDERED: ACETAMINOPHEN 650 MG SUPP (TYLENOL) PR ONE (08:00)
[2020-09-12] MEDS ORDERED: PIPERACILLIN SODIUM/TAZOBACTAM 4.5 GM in NS (IVPB) 100 ML IV ONE (08:00)
[2020-09-12] MEDS ORDERED: CEFEPIME INJECTION 1,000 MG in WATER (STERILE) FOR INJECTION 10 ML IV ONE (08:00)
[2020-09-12] MEDS ORDERED: NS IV 500 ML 500 ML IV ONE (08:15)
[2020-09-12 08:17] LABS: BILIRUBIN,URINE 1+ (NEGATIVE); RBC,URINE 0-2 /HPF
[2020-09-12 08:18] LABS: BACTERIA,URINE NEGATIVE /HPF; WBC,URINE 0 /HPF
[2020-09-12 08:30] LABS: INR 1.2 (0.8-1.4); PROTHROMBIN TIME PATIENT 15.1 SEC (12.2-14.7)
[2020-09-12 08:30] LABS: AMPHETAMINE SCREEN, URINE NEGATIVE (NEGATIVE); BARBITURATE SCREEN URINE NEGATIVE (NEGATIVE); BENZODIAZEPINES SCREEN URINE NEGATIVE (NEGATIVE); CANNABINOID SCREEN, URINE NEGATIVE (NEGATIVE); COCAINE SCREEN URINE NEGATIVE (NEGATIVE); METHADONE STAT NEGATIVE (NEGATIVE); METHAMPHETAMINE SCREEN URINE S NEGATIVE (NEGATIVE); OPIATE SCREEN URINE NEGATIVE (NEGATIVE); OXYCODONE STAT NEGATIVE (NEGATIVE); PROPOXYPHENE STAT NEGATIVE (NEGATIVE); TRICYCLIC ANTIDEPRESSANTS SCRE NEGATIVE (NEGATIVE)
--- NOTE | 2020-09-12 08:30 | Diagnostic Imaging Report ---
Indication: Respiratory distress Portable chest 8:24 AM There appears to be some small patchy peripheral infiltrates in both lungs. Heart size and pulmonary vascularity are normal. There are no effusions or pneumothoraces. IMPRESSION: Small patchy peripheral infiltrates in the lungs consistent with COVID pneumonia. Report was faxed to [facility] by jhonatan at 8:30AM. Dictated by: Dictated on workstation # [id number]
[2020-09-12 08:36] LABS: BAND NEUTROPHILS 5 %; LYMPHOCYTES % (MANUAL) 5 %; MONOCYTES % (MANUAL) 5 %; NEUTROPHILS % (MANUAL) 85 %; RBC MORPH NORMAL
[2020-09-12 08:37] LABS: PLATELET COUNT 185 10^3/uL (130-400)
[2020-09-12] MEDS ORDERED: HYDROCORTISONE 100 MG/2 ML (Solu-CORTEF) VIAL IV ONE (08:45)
[2020-09-12] MEDS ORDERED: KETOROLAC 30 MG/ML VIAL IVP ONE (09:30)
--- NOTE | 2020-09-12 12:02 | Diagnostic Imaging Report ---
EXAMINATION: CT head without contrast. TECHNIQUE: Multiple contiguous axial images were obtained through the brain without the use of intravenous contrast. All CT scans use one or more of the following dose optimizing techniques: automated exposure control, MA and/or KvP adjustment based on patient size and exam type or iterative reconstruction. HISTORY: Altered mental status. Seizure. COVID infection. COMPARISON: None available. FINDINGS: There is a small amount of hyperintense material along the left convexity with additional small amount of isointense to hypointense fluid and pneumocephalus. This collection measures 0.5 cm in maximum thickness. No associated mass effect or midline shift is seen. No evidence of uncal or tonsillar herniation. No large acute territorial ischemia. The ventricles are somewhat prominent compared to the cortical sulci. The basilar cisterns are patent. There is nonspecific preseptal soft tissue edema and inflammation overlying the left orbit. The globes are intact bilaterally. No post septal inflammatory changes are seen. There is age-indeterminate fracture involving the lateral aspect of the left orbital apex without associated hematoma. Fluid levels are seen in the left maxillary sinus and left sphenoid sinus. Mucosal thickening is seen in the bilateral frontal and ethmoid sinuses. The mastoid air cells are clear. No acute depressed calvarial fracture is seen. IMPRESSION: 1. Left convexity subdural collection with associated pneumocephalus. Findings may represent blood products secondary to trauma; however, the patient history does not correspond to significant trauma. Alternatively, these findings may represent extra sinus spread of infection with associated meningitis/cerebritis. Recommend further evaluation with MRI brain with and without contrast. CT of the skull base with thin slices can also be performed to evaluate for occult skull base fracture. 2. Preseptal soft tissue edema on the left. No evidence of globe rupture or post septal soft tissues. There is age-indeterminate fracture in the lateral aspect of the left orbital apex. 3. Fluid levels in the left maxillary and sphenoid sinuses with mucosal thickening in the bilateral ethmoid and frontal sinuses. Again findings may represent acute sinusitis versus posttraumatic findings. Dictated by: Dictated on workstation # [id number]
--- NOTE | 2020-09-12 16:10 | Anesthesia-Procedure Note ---
Procedures/Interventions Procedure Start/Stop/Diagnosis Date of Procedure: Sep 12, 2020 Start Time: 15:00 Referring Physician: Sanjana Brief History Called to ER to perform lumbar puncture on a patient with altered mental status/covid positive. Labs/home meds reviewed. CT scan of head cleared by Dr. Allan. Unable to get MRI d/t patients spinal cord stimulator. Proceeding per Dr. Allan's request and clearance. Multiple attempts with redirection by Mariann Gallego CRNA. Patient repositioned and reprepped/draped. Attempt at L5 by Fanny chin with multiple redirects, but successful access of intrathecal space, CSF collected. Specimen vials given to [facility] Cruz to be taken to lab. Stop Time: 15:55 Lumbar Puncture Discussed Risk,Benefits: Yes Patient Consents: Yes Position: Lying, L3-4 (Localized with Lido 2% PF 3ml at each level L3-5), L4-5, Left Sterile Technique: Yes Opening Pressure: 23.5 Fluid Color: vial 1 blood tinged initially, clear with subsequent vials. Spinal Needle Used: Other (22 Quinke) Procedure Notes Upon exiting patient awake, alert. Bedrails x 2 up. Lights dimmed per patient request. Tolerated procedure well overall. TRISTEN GALLEGO CRNA Sep 12, 2020 16:10
[2020-09-12] MEDS ORDERED: CATHETER FLUSH 10 ML SYR IV PRN (16:30)
[2020-09-12] MEDS ORDERED: ONDANSETRON 4 MG/2 ML (SDV) Z0FRAN IV PRN (16:30)
[2020-09-12] MEDS ORDERED: EPINEPHrine 1 MG INJECTION 4 MG in NS (IVPB) 248 ML IV SCH (16:30)
[2020-09-12 16:31] LABS: APPEARANCE,CSF SLT CLDY
[2020-09-12 16:32] LABS: COLOR,CSF COLORLESS; CSF TUBE NUMBER 4; RED BLOOD CELL,CSF 100 CELLS (0-0); WHITE BLOOD CELL,CSF 458 CELLS (0-5)
[2020-09-12 16:43] LABS: CSF GLUCOSE 72 MG/DL (50-80)
[2020-09-12 16:59] LABS: LYMPHOCYTES,CSF 32 %
[2020-09-12 17:10] VITALS: BP 126/75
[2020-09-12 17:18] LABS: CSF TOTAL PROTEIN 300 MG/DL (15-40)
[2020-09-12] MEDS: VASOPRESSIN INJECTION 20 UNIT in NS (IVPB) 100 ML IV SCH (17:36)
[2020-09-12] MEDS: NOREPINEPHRINE 8 MG/250 ML 250 ML IV SCH (17:37)
--- NOTE | 2020-09-12 17:43 | Tele-ICU Consult ---
History of Present Illness History of Present Illness Date Seen by Provider: Sep 12, 2020 Time Seen by Provider: 17:43 Date of Admission Allergies and Home Medications Allergies Coded Allergies: lithium (Verified Allergy, Unknown, 07/15/20) Home Medications Cefdinir 300 Mg Capsule, 300 MG PO BID Prescribed by: EVA AARON on 09/11/201914 Cyclobenzaprine HCl 10 Mg Tablet, 10 MG PO Q8H PRN for SPASMS Prescribed by: BERNIE CASTLE on 08/05/20 033 Nitrofurantoin Monohyd/M-Cryst 100 Mg Capsule, 1 TAB PO BID Prescribed by: BERNIE CASTLE on 08/05/20 033 Tramadol HCl 50 Mg Tablet, 50 MG PO Q6H PRN for PAIN-BREAKTHROUGH Prescribed by: RONY HEARN on 07/15/20 0539 Tramadol HCl 50 Mg Tablet, 50 MG PO Q6H PRN for PAIN Prescribed by: BERNIE CASTLE on 08/05/20 033 Past Medical/Social/Family Hx Patient Social History Tobacco Use?: Yes Smoking Status: Current Everyday Smoker Use of E-Cig and/or Vaping dev: No Substance use?: No Alcohol Use?: No Pt stated abuse/neglect: Unable to obtain Current Status Advance Directives: No Primary Language: Peruvian Preferred Spoken Language: Peruvian Family Medical History Family Hx: PAST SURGICAL HISTORY: -HYSTERECTOMY/BILATERAL SALPINGO-OOPHORECTOMY -GASTRIC BYPASS -LUMBAR SPINE SURGERY -SPINAL STIMULATOR -OPEN CHOLECYSTECTOMY -APPENDECTOMY -RIGHT HIP REPLACEMENT Review of Systems Constitutional: see HPI Sepsis Event Evaluation Height, Weight, BMI Height: '" Weight: lbs. oz. kg; 41.00 BMI Method: Exam Exam Patient acknowledged, consented, and participated in this virtual visit which was conducted using real time audio/video Vital Signs Date Time Temp Pulse Resp B/P (MAP) Pulse Ox O2 Delivery O2 Flow Rate FiO2 09/12/20 17:10 76 14 126/75 (92) 98 OxyMask 3.00 09/12/20 16:35 38.0 77 20 103/64 98 OxyMask 3.00 09/12/20 08:37 39.8 09/12/20 08:33 39.8 109 22 110/59 (76) OxyMask 3.00 09/12/20 07:20 39.8 114 24 115/67 (83) OxyMask 4.00 09/12/20 07:20 OxyMask 5.00 97 Height & Weight Height: '" Weight: lbs. oz. kg; 41.00 BMI Method: General Appearance: No Apparent Distress, WD/WN HEENT: PERRL/EOMI; No Pharynx Normal (Dry oral mucosa), No Moist Mucous Membranes Neck: Full Range of Motion, Normal Inspection, Non Tender, Supple Respiratory: Lungs Clear, Normal Breath Sounds, Accessory Muscle Use, Respiratory Distress (Moderate with oxygen saturation upper 80s low 90s on room air on arrival) Cardiovascular: Regular Rate, Rhythm, No Edema, Normal Peripheral Pulses, Tachycardia Capillary Refill: Less Than 3 Seconds Extremity: Normal Capillary Refill, Normal Inspection, No Pedal Edema Neurologic/Psychiatric: Alert, No Motor/Sensory Deficits, Other (GCS 10) Results Lab Laboratory Tests 09/12/20 07:28 Assessment/Plan Assessment/Plan (Tele-ICU Physician , consultation) Available chart/ vitals / labs / Images reviewed H&P is from ER notes Patient's information available about PMH, Shx, Fhx allergy reviewed in EMR. ROS as per chart and RN report Patient admitted 09/10- covid + , in ER with fatigye - CT - no PE , RUL infiltrate - prescrived ABX 09/12 - in ER Fever 103.7, seizure-like activity , encephalopathy Now in ICU, hemodynamically stable Video assessment done using teleICU camera, rest of exam as per RN Discussed with RN. Consultants: A/P seizure-like activity , encephalopathy - CTH 09/12- maxillary/sphenoid sinusitis by corresponding CTs - +/- meningitis --> Tx with abx -CT with Left convexity subdural collection - as per radiology can be blood due to trauma - can not do MRI with spinal stimulator - ( tox screen negative ) - LP done 09/12 - opening pressire - - results pending - reportedly on Tramadol - and flexeril- combo can contribute to confusion and Sz ( especially if taken extra Sepsis, Fever 103.7 - recent Covid + - with very high PCT of 80- bact infection is very likely , UA clear , 09/11 - CT - no PE , - RUL infiltrate+ maxillary/sphenoid sinusitis by corresponding CTs - +/- meningitis ---covered with ABX- -Zosyn cefepime and vancomycin for empiric meningitis coverage given in ER ---2500 ml IV given ---stress dose of steroid given metabolic acidosis - lactate normalized h/o Felipe dz - started on hydrocortisone , stress dose 100 q6 H/o non-Hodgkin's lymphoma (s/p chemotherapy. Obesity replace K Lines : , (Central Line Necessity Reviewed) Colbert: 09/12 OG: Nutrition: npo Analgesia: na Anxiety/ delirium na VTE Prophylaxis: SCD Stress Ulcer Prophylaxis: Glycemic Control: Plans in collaboration with bedside consultants and IM MDs. Discussed with RN to reach out if any questions or concerns A total of 37 minutes of critical care time was devoted to this patient today, required to treat and/or prevent further deterioration of critical care condition ( as above ) . JOSE E ZUNIGA MD Sep 12, 2020 17:43
[2020-09-12 18:00] VITALS: BP 140/63
[2020-09-12] MEDS: CEFEPIME 1,000 MG/SWFI 10 ML IV PUSH IV SCH ×4 (19:04→23:12)
[2020-09-12] MEDS: HYDROCORTISONE 100 MG/2 ML (Solu-CORTEF) VIAL IV SCH (19:04)
[2020-09-12] MEDS: POTASSIUM CL 10MEQ/50ML IVPB 50 ML IV SCH ×4 (19:05→23:11)
[2020-09-12] MEDS: LACTATED RINGERS 1,000 ML IV SCH ×2 (19:05→23:11)
[2020-09-12] MEDS: KETOROLAC 15 MG/ML VIAL IV PRN (19:05)
[2020-09-12] MEDS: PIPERACILLIN/TAZO 4.5 GM/NS 100 ML IV SCH ×2 (19:06)
--- NOTE | 2020-09-12 20:36 | History & Physical-Hospitalist ---
History of Present Illness HPI/Chief Complaint Chief complaint: Meningitis History of present illness: This is a 60-year-old white female clinic patient of [facility] who presented yesterday with COVID-19 symptoms and was discharged home in improved condition but she came back worse with altered mental status. Patient was found to have findings consistent with encephalitis COVID-19 infection so she was placed on broad-spectrum antibiotics per protocol aggressive IV fluids placed in the ICU for aggressive management. Patient appears to be very dehydrated she is alert but extremely ill tyler and ashen. Source: patient Exam Limitations: no limitations Date Seen 09/12/20 Time Seen by a Provider: 18:30 Attending Physician Lynnette Hedrick DO [facility] Referring Physician Date of Admission Sep 12, 2020 at 09:00 Home Medications & Allergies Home Medications Reviewed patient Home Medication Reconciliation performed by pharmacy medication reconciliations security alarm technician and/or nursing. Patients Allergies have been reviewed. Allergies Allergies Coded Allergies lithium (Verified Allergy, Unknown, 07/15/20) Past Ouvvwkl-Xqbijr-Pmrety Hx Patient Social History Marrital Status: single Employed/Student: unemployed Tobacco Use?: Yes Tobacco type used: Cigarettes Smoking Status: Current Everyday Smoker Use of E-Cig and/or Vaping dev: No Substance use?: No Alcohol Use?: No Pt feels they are or have been: No Immunizations Up To Date Date of Influenza Vaccine: Nov 22, 2019 Seasonal Allergies Seasonal Allergies: Yes Current Status status: No status: No Advance Directives: No Communicates: Verbally Primary Language: Greenlandic Preferred Spoken Language: Greenlandic Is interpretation needed?: No Past Medical History Surgeries: Abdominal, Appendectomy, Gallbladder, Hysterectomy, Joint Replacement, Oophorectomy, Orthopedic TILER History: Hysterectomy Sexually Transmitted Disease: Yes (HERPES) Gastroesophageal Reflux Back Injury, Chronic Back Pain, Spasms Hypothyroidsim Lymphoma Did You Recieve Any Treatments: Yes What Type of Treatment Did You: Chemotherapy Anxiety, Depression Blood Disorders: No Adverse Reaction/Blood Tranf: No Family Medical History PAST SURGICAL HISTORY: -HYSTERECTOMY/BILATERAL SALPINGO-OOPHORECTOMY -GASTRIC BYPASS -LUMBAR SPINE SURGERY -SPINAL STIMULATOR -OPEN CHOLECYSTECTOMY -APPENDECTOMY -RIGHT HIP REPLACEMENT Review of Systems Constitutional: see HPI Physical Exam Physical Exam Vital Signs Vital Signs - First Documented 09/12/20 09/12/20 07:20 16:35 Temp 39.8 Pulse 114 Resp 24 B/P (MAP) 115/67 (83) Pulse Ox 98 O2 Delivery OxyMask O2 Flow Rate 5.00 FiO2 97 Capillary Refill : Less Than 3 Seconds Height, Weight, BMI Height: '" Weight: lbs. oz. kg; 41.50 BMI Method: General Appearance: Anxious, Chronically ill, Mild Distress, Other (Tyler ashen and very ill with confusion) Respiratory: Lungs Clear, Normal Breath Sounds Cardiovascular: Regular Rate, Rhythm Neurologic/Psychiatric: Alert, Disoriented Results Results/Procedures Labs Laboratory Tests 09/12/20 07:28 Patient resulted labs reviewed. Assessment/Plan Admission Diagnosis Assessment: Meningitis COVID-19 pneumonia Sepsis Hypoxia Smoker Hypothyroidism Plan: Aggressive treatment IV fluids Monitor closely Admission Status: Inpatient Order (span 2 midnights) Reason for Inpatient Admission: Sepsis Diagnosis/Problems Diagnosis/Problems (1) Meningitis Status: Acute (2) COVID-19 Status: Acute (3) Acute respiratory failure with hypoxemia Status: Acute (4) Septic shock Status: Acute LYNNETTE HEDRICK DO Sep 12, 2020 20:35
[2020-09-12] MEDS: ACETAMINOPHEN 325 MG TABLET PO PRN (20:42)
[2020-09-12] MEDS: inSUlin ASPART (NovoLOG) 1 UNIT/0.01 ML (CHARGE PER UNIT) SC SCH (20:51)
[2020-09-12] MEDS: VANCOMYCIN 1250 MG/NS 250 ML IVPB IV SCH ×2 (23:11)
[2020-09-13] MEDS: HYDROCORTISONE 100 MG/2 ML (Solu-CORTEF) VIAL IV SCH ×3 (00:24→18:01)
[2020-09-13 00:52] VITALS: BP 112/61
[2020-09-13] MEDS: VASOPRESSIN INJECTION 20 UNIT in NS (IVPB) 100 ML IV SCH ×3 (00:52→18:02)
[2020-09-13] MEDS: PIPERACILLIN/TAZO 4.5 GM/NS 100 ML IV SCH ×6 (01:30→18:02)
[2020-09-13] MEDS: NOREPINEPHRINE 8 MG/250 ML 250 ML IV SCH ×2 (03:46→16:47)
[2020-09-13] MEDS: CEFEPIME 1,000 MG/SWFI 10 ML IV PUSH IV SCH ×8 (03:47→23:28)
[2020-09-13] MEDS: LACTATED RINGERS 1,000 ML IV SCH ×3 (03:48→19:50)
[2020-09-13 04:11] LABS: BASOPHILS % (AUTO) 0 % (0-10); EOSINOPHILS % (AUTO) 0 % (0-10); HEMOGLOBIN 12.1 g/dL (11.5-16.0); MONOCYTES # (AUTO) 0.3 10^3/uL (0.0-1.0)
[2020-09-13 04:12] LABS: HEMATOCRIT 37 % (35-52); LYMPHOCYTES # (AUTO) 0.6 10^3/uL (1.0-4.0); LYMPHOCYTES % (AUTO) 8 % (12-44); MEAN CORPUSCULAR HEMOGLOBIN 29 pg (25-34); MEAN CORPUSCULAR HGB CONC 33 g/dL (32-36); MEAN CORPUSCULAR VOLUME 88 fL (80-99); MEAN PLATELET VOLUME 11.8 fL (9.0-12.2); MONOCYTES % (AUTO) 4 % (0-12); NEUTROPHILS # (AUTO) 6.7 10^3/uL (1.8-7.8); NEUTROPHILS % (AUTO) 87 % (42-75); PLATELET COUNT 132 10^3/uL (130-400); WHITE BLOOD COUNT 7.7 10^3/uL (4.3-11.0)
[2020-09-13 04:19] LABS: POTASSIUM 3.8 MMOL/L (3.6-5.0)
[2020-09-13 04:20] LABS: CALCIUM 8.4 MG/DL (8.5-10.1)
[2020-09-13 04:24] LABS: CREATININE SERUM 0.62 MG/DL (0.60-1.30)
[2020-09-13] MEDS: inSUlin ASPART (NovoLOG) 1 UNIT/0.01 ML (CHARGE PER UNIT) SC SCH ×4 (06:14→20:35)
--- NOTE | 2020-09-13 06:44 | Progress Note - Hospitalist ---
Subjective HPI/CC On Admission Date Seen by Provider: Sep 13, 2020 Time Seen by Provider: 06:30 Chief complaint: Meningitis History of present illness: This is a 60-year-old white female clinic patient of [facility] who presented yesterday with COVID-19 symptoms and was discharged home in improved condition but she came back worse with altered mental status. Patient was found to have findings consistent with encephalitis COVID-19 infection so she was placed on broad-spectrum antibiotics per protocol aggressive IV fluids placed in the ICU for aggressive management. Patient appears to be very dehydrated she is alert but extremely ill mendez and ashen. Subjective/Events-last exam Pt still appears to be extremely ill Denies any significant problems Very altered IV antibiotics maintained IV fluids maintained Colbert catheter draining urine Critical issue Review of Systems General: Fatigue, Malaise Neurological: Weakness Focused Exam Lactate Level 09/12/20 07:28: Lactic Acid Level 4.24*H 09/12/20 10:36: Lactic Acid Level 0.78 09/12/20 18:53: Lactic Acid Level 0.54 Objective Exam Vital Signs Vital Signs Date Time Temp Pulse Resp B/P (MAP) Pulse Ox O2 Delivery O2 Flow Rate FiO2 09/14/20 06:00 60 93 19/89 (66) 69 Nasal Cannula 2.00 09/14/20 04:00 37.0 09/13/20 16:33 1 Capillary Refill : Less Than 3 Seconds General Appearance: No Apparent Distress, WD/WN, Chronically ill, Other (Acutely ill with mendez and ashen appearance) Respiratory: No Accessory Muscle Use, Decreased Breath Sounds Cardiovascular: Regular Rate, Rhythm Neurologic/Psychiatric: Alert, Oriented x3, Disoriented Results/Procedures Lab Laboratory Tests 09/14/20 03:12 Patient resulted labs reviewed. Assessment/Plan Assessment and Plan Assess & Plan/Chief Complaint Assessment: Meningitis COVID-19 pneumonia Sepsis Hypoxia Smoker Hypothyroidism Plan: Aggressive treatment IV fluids Monitor closely 09/13/2020: Supportive care IV antibiotics Monitor closely Diagnosis/Problems Diagnosis/Problems (1) Meningitis Status: Acute (2) COVID-19 Status: Acute (3) Acute respiratory failure with hypoxemia Status: Acute (4) Septic shock Status: Acute GALILEA ELIZABETH DO Sep 13, 2020 06:44
--- NOTE | 2020-09-13 09:01 | Diagnostic Imaging Report ---
Indication: Dyspnea, follow-up Covid pneumonia. Comparison: 09/12/2020. Discussion: Single portable upright view of the chest was obtained. Infiltrates within the right lung are slightly increased. Infiltrates within the left lung are stable. Mild cardiomegaly is stable. No pleural fluid or pneumothorax. No osseous abnormality. Impression: 1. Bilateral pulmonary infiltrates, stable on the left and increased on the right. Dictated by: Dictated on workstation # [id number]
[2020-09-13] MEDS: ACETAMINOPHEN 325 MG TABLET PO PRN ×2 (09:58→14:41)
--- NOTE | 2020-09-13 11:32 | Tele-ICU Progress Note ---
Subjective Date Seen by a Provider: Sep 13, 2020 Time Seen by a Provider: 10:30 Subjective/Events-last exam Patient participated in this virtual visit which was conducted using real time audio/video. Thank you for asking us to see this patient for respiratory insufficiency and distress, pna, sinusitis and poss. meningitis. HPC: Recent events: no change overnight. Awaiting LP results. PMH: NHL DM COPD BPD Kenton's. SH: smoking history yes FH: Non-contributory ROS: limited by patient's clinical condition, but doing better PE: VSS HR72 nsr BP 120/60 RR 20 O2 sat 93 % on 1 L NC. HEENT: No obvious masses, adenopathy or JVD. Chest: clear to auscultation. CV: RRR S1 S2 No murmur or added sounds. Abd: Non-tender. Bowel sounds . : Unremarkable. Colbert . 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 No obvious focal findings. Extremities: No edema. Capillary refill < 3 seconds. Skin: unremarkable. Results: Elevated . Decreased . A/P: Respiratory insufficiency/distress: better Available chart/ vitals / labs / Images reviewed. Video assessment done using teleICU camera, rest of exam as per RN. Respiratory: Continue present management with nc, vanco, cefipime pending LP results. Monitor for increasing oxygenation needs and/or need for intubation. Critical Care: critically ill patient. Discussed with POONAM Francisco. Asked RN to reach out to eICU if any questions or concerns later. Time spent with patient/coordination of care with other health professionals (mins): 15 Sepsis Event Evaluation Sepsis Stage: Ruled Out Height, Weight, BMI Height: '" Weight: lbs. oz. kg; 41.50 BMI Method: Focused Exam Sepsis Stage: Ruled Out Lactate Level 09/12/20 07:28: Lactic Acid Level 4.24*H 09/12/20 10:36: Lactic Acid Level 0.78 09/12/20 18:53: Lactic Acid Level 0.54 Exam Exam Patient acknowledged, consented, and participated in this virtual visit which was conducted using real time audio/video Vital Signs Date Time Temp Pulse Resp B/P (MAP) Pulse Ox O2 Delivery O2 Flow Rate FiO2 09/13/20 11:00 84 17 104/68 (80) 87 Nasal Cannula 1.00 09/13/20 10:00 89 13 103/55 (71) 94 Nasal Cannula 1.00 09/13/20 09:58 38.8 09/13/20 09:42 Nasal Cannula 1.00 09/13/20 09:00 76 16 124/87 (99) 96 Nasal Cannula 2.00 09/13/20 08:00 80 17 135/68 (90) 95 Nasal Cannula 2.00 09/13/20 07:58 36.9 09/13/20 07:00 75 09/13/20 07:00 80 16 122/71 (88) 96 Nasal Cannula 2.00 09/13/20 06:00 80 19 119/77 (91) 96 Nasal Cannula 2.00 09/13/20 05:00 68 19 115/82 (93) 96 Nasal Cannula 2.00 09/13/20 04:00 71 14 134/112 (119) 95 Nasal Cannula 2.00 09/13/20 04:00 36.6 09/13/20 04:00 97 Nasal Cannula 3.00 09/13/20 03:46 72 09/13/20 03:00 67 18 134/72 (92) 95 Nasal Cannula 2.00 09/13/20 02:00 68 16 115/60 (78) 95 Nasal Cannula 2.00 09/13/20 01:00 73 09/13/20 01:00 60 16 108/83 (91) 94 Nasal Cannula 2.00 09/13/20 00:52 68 112/61 09/13/20 00:00 97 Nasal Cannula 3.00 09/13/20 00:00 73 12 112/61 (78) 94 Nasal Cannula 2.00 09/12/20 23:01 36.4 09/12/20 23:00 80 14 107/67 (80) 95 Nasal Cannula 2.00 09/12/20 22:00 79 16 112/77 (89) 95 Nasal Cannula 2.00 09/12/20 21:00 97 22 105/61 (76) 95 Nasal Cannula 2.00 09/12/20 20:00 89 17 122/66 (84) 96 Nasal Cannula 2.00 09/12/20 20:00 97 Nasal Cannula 3.00 09/12/20 19:53 38.0 09/12/20 19:00 84 09/12/20 19:00 88 20 116/64 (81) 90 Nasal Cannula 2.00 09/12/20 18:01 80 09/12/20 18:00 80 14 140/63 (88) 97 OxyMask 3.00 09/12/20 17:10 76 14 126/75 (92) 98 OxyMask 3.00 09/12/20 17:00 97 Nasal Cannula 3.00 09/12/20 16:35 38.0 77 20 103/64 98 OxyMask 3.00 I & O 09/13/20 07:00 Intake Total 5660 ml Output Total 1525 ml Balance 4135 ml Height & Weight Height: '" Weight: lbs. oz. kg; 41.50 BMI Method: General Appearance: Anxious, Chronically ill, Mild Distress, Other (Tyler ashen and very ill with confusion) HEENT: PERRL/EOMI; No Pharynx Normal (Dry oral mucosa), No Moist Mucous Membranes Neck: Full Range of Motion, Normal Inspection, Non Tender, Supple Respiratory: Lungs Clear, Normal Breath Sounds Cardiovascular: Regular Rate, Rhythm Capillary Refill: Less Than 3 Seconds Extremity: Normal Capillary Refill, Normal Inspection, No Pedal Edema Neurologic/Psychiatric: Alert, Disoriented Results Lab Laboratory Tests 09/12/20 07:28 09/13/20 03:08 Assessment/Plan Assessment/Plan See free text Critical Care: Critically Ill Patient Time spent on discussion(mins): 0 NIKKIE GUARDADO MD Sep 13, 2020 11:32
--- NOTE | 2020-09-13 11:37 | Tele-ICU Progress Note ---
Subjective Date Seen by a Provider: Sep 13, 2020 Time Seen by a Provider: 11:00 Subjective/Events-last exam Patient acknowledged, consented, and participated in this virtual visit which was conducted using real time audio/video. Thank you for asking us to see this patient for respiratory insufficiency and distress. HPC: Recent events: Did well overnight w BiPAP PMH: ILD on home O2 10 LPM. SH: smoking history pos FH: Non-contributory PE: Restiing comfortably. VSS HR 95 nsr BP 150/80 RR 24 O2 sat 95% on NC HEENT: No obvious masses, adenopathy or JVD. Chest: clear to auscultation. CV: RRR S1 S2 No murmur or added sounds. Abd: Non-tender. Bowel sounds . : Unremarkable. Colbert . 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 No obvious focal findings. Extremities: edema. Capillary refill < 3 seconds. Skin: unremarkable. Results: Elevated . Decreased . A/P: Respiratory insufficiency/distress: Doing better Available chart/ vitals / labs / Images reviewed. Video assessment done using teleICU camera, rest of exam as per RN. Respiratory: Continue present management with NC/BiPAP Monitor for increasing oxygenation needs and/or need for intubation.. Critical Care: critically ill patient. Discussed with POONAM Francisco. Asked RN to reach out to eICU if any questions or concerns later. Time spent with patient/coordination of care with other health professionals (mins): 15 Sepsis Event Evaluation Sepsis Stage: Ruled Out Height, Weight, BMI Height: '" Weight: lbs. oz. kg; 41.50 BMI Method: Focused Exam Sepsis Stage: Ruled Out Lactate Level 09/12/20 07:28: Lactic Acid Level 4.24*H 09/12/20 10:36: Lactic Acid Level 0.78 09/12/20 18:53: Lactic Acid Level 0.54 Exam Exam Patient acknowledged, consented, and participated in this virtual visit which was conducted using real time audio/video Vital Signs Date Time Temp Pulse Resp B/P (MAP) Pulse Ox O2 Delivery O2 Flow Rate FiO2 09/13/20 11:00 84 17 104/68 (80) 87 Nasal Cannula 1.00 09/13/20 10:00 89 13 103/55 (71) 94 Nasal Cannula 1.00 09/13/20 09:58 38.8 09/13/20 09:42 Nasal Cannula 1.00 09/13/20 09:00 76 16 124/87 (99) 96 Nasal Cannula 2.00 09/13/20 08:00 80 17 135/68 (90) 95 Nasal Cannula 2.00 09/13/20 07:58 36.9 09/13/20 07:00 75 09/13/20 07:00 80 16 122/71 (88) 96 Nasal Cannula 2.00 09/13/20 06:00 80 19 119/77 (91) 96 Nasal Cannula 2.00 09/13/20 05:00 68 19 115/82 (93) 96 Nasal Cannula 2.00 09/13/20 04:00 71 14 134/112 (119) 95 Nasal Cannula 2.00 09/13/20 04:00 36.6 09/13/20 04:00 97 Nasal Cannula 3.00 09/13/20 03:46 72 09/13/20 03:00 67 18 134/72 (92) 95 Nasal Cannula 2.00 09/13/20 02:00 68 16 115/60 (78) 95 Nasal Cannula 2.00 09/13/20 01:00 73 09/13/20 01:00 60 16 108/83 (91) 94 Nasal Cannula 2.00 09/13/20 00:52 68 112/61 09/13/20 00:00 97 Nasal Cannula 3.00 09/13/20 00:00 73 12 112/61 (78) 94 Nasal Cannula 2.00 09/12/20 23:01 36.4 09/12/20 23:00 80 14 107/67 (80) 95 Nasal Cannula 2.00 09/12/20 22:00 79 16 112/77 (89) 95 Nasal Cannula 2.00 09/12/20 21:00 97 22 105/61 (76) 95 Nasal Cannula 2.00 09/12/20 20:00 89 17 122/66 (84) 96 Nasal Cannula 2.00 09/12/20 20:00 97 Nasal Cannula 3.00 09/12/20 19:53 38.0 09/12/20 19:00 84 09/12/20 19:00 88 20 116/64 (81) 90 Nasal Cannula 2.00 09/12/20 18:01 80 09/12/20 18:00 80 14 140/63 (88) 97 OxyMask 3.00 09/12/20 17:10 76 14 126/75 (92) 98 OxyMask 3.00 09/12/20 17:00 97 Nasal Cannula 3.00 09/12/20 16:35 38.0 77 20 103/64 98 OxyMask 3.00 I & O 09/13/20 07:00 Intake Total 5660 ml Output Total 1525 ml Balance 4135 ml Height & Weight Height: '" Weight: lbs. oz. kg; 41.50 BMI Method: General Appearance: Anxious, Chronically ill, Mild Distress, Other (Tyler ashen and very ill with confusion) HEENT: PERRL/EOMI; No Pharynx Normal (Dry oral mucosa), No Moist Mucous Membranes Neck: Full Range of Motion, Normal Inspection, Non Tender, Supple Respiratory: Lungs Clear, Normal Breath Sounds Cardiovascular: Regular Rate, Rhythm Capillary Refill: Less Than 3 Seconds Extremity: Normal Capillary Refill, Normal Inspection, No Pedal Edema Neurologic/Psychiatric: Alert, Disoriented Results Lab Laboratory Tests 09/12/20 07:28 09/13/20 03:08 Assessment/Plan Assessment/Plan See free text. Critical Care: Critically Ill Patient Time spent on discussion(mins): 0 NIKKIE GUARDADO MD Sep 13, 2020 11:37
[2020-09-13] MEDS: VANCOMYCIN 1250 MG/NS 250 ML IVPB IV SCH ×4 (11:49→22:12)
[2020-09-13] MEDS: morphine INJ 4 MG/ML 1 ML (VIAL/SYRINGE) IVP PRN (18:59)
[2020-09-13] MEDS: RT-ALBUTEROL INHALER HFA (VENTOLIN HFA) 18 GM IH SCH (22:32)
[2020-09-14] MEDS: HYDROCORTISONE 100 MG/2 ML (Solu-CORTEF) VIAL IV SCH ×3 (01:21→19:08)
[2020-09-14] MEDS: PIPERACILLIN/TAZO 4.5 GM/NS 100 ML IV SCH ×6 (01:21→19:08)
[2020-09-14] MEDS: VASOPRESSIN INJECTION 20 UNIT in NS (IVPB) 100 ML IV SCH ×3 (01:48→19:40)
[2020-09-14] MEDS: NOREPINEPHRINE 8 MG/250 ML 250 ML IV SCH ×2 (01:49→15:08)
[2020-09-14] MEDS: LACTATED RINGERS 1,000 ML IV SCH ×4 (01:49→21:31)
[2020-09-14] MEDS: RT-ALBUTEROL INHALER HFA (VENTOLIN HFA) 18 GM IH SCH ×4 (02:47→19:26)
[2020-09-14 04:01] LABS: BASOPHILS % (AUTO) 0 % (0-10); EOSINOPHILS % (AUTO) 0 % (0-10); HEMATOCRIT 33 % (35-52); HEMOGLOBIN 10.6 g/dL (11.5-16.0); LYMPHOCYTES # (AUTO) 0.6 10^3/uL (1.0-4.0); LYMPHOCYTES % (AUTO) 9 % (12-44); MEAN CORPUSCULAR HEMOGLOBIN 29 pg (25-34); MEAN CORPUSCULAR HGB CONC 33 g/dL (32-36); MEAN CORPUSCULAR VOLUME 87 fL (80-99); MEAN PLATELET VOLUME 10.7 fL (9.0-12.2); MONOCYTES # (AUTO) 0.2 10^3/uL (0.0-1.0); MONOCYTES % (AUTO) 3 % (0-12); NEUTROPHILS # (AUTO) 5.7 10^3/uL (1.8-7.8); NEUTROPHILS % (AUTO) 88 % (42-75); PLATELET COUNT 176 10^3/uL (130-400); WHITE BLOOD COUNT 6.5 10^3/uL (4.3-11.0)
[2020-09-14 04:10] LABS: POTASSIUM 3.4 MMOL/L (3.6-5.0)
[2020-09-14 04:11] LABS: CALCIUM 8.3 MG/DL (8.5-10.1)
[2020-09-14 04:16] LABS: CREATININE SERUM 0.66 MG/DL (0.60-1.30); PHOSPHORUS 1.7 MG/DL (2.3-4.7)
[2020-09-14 04:18] LABS: MAGNESIUM 1.8 MG/DL (1.6-2.4)
[2020-09-14] MEDS: CEFEPIME 1,000 MG/SWFI 10 ML IV PUSH IV SCH ×8 (05:39→22:28)
[2020-09-14] MEDS: inSUlin ASPART (NovoLOG) 1 UNIT/0.01 ML (CHARGE PER UNIT) SC SCH ×4 (05:39→21:31)
--- NOTE | 2020-09-14 06:55 | Progress Note - Hospitalist ---
Subjective HPI/CC On Admission Date Seen by Provider: Sep 14, 2020 Time Seen by Provider: 11:00 Chief complaint: Meningitis History of present illness: This is a 60-year-old white female clinic patient of [facility] who presented yesterday with COVID-19 symptoms and was discharged home in improved condition but she came back worse with altered mental status. Patient was found to have findings consistent with encephalitis COVID-19 infection so she was placed on broad-spectrum antibiotics per protocol aggressive IV fluids placed in the ICU for aggressive management. Patient appears to be very dehydrated she is alert but extremely ill mendez and ashen. Subjective/Events-last exam Patient doing a lot better Flat affect continues 2 L of oxygen Once chocolate Ensure Check meds and labs We will hold on in ICU again today due to high risk for decompensation Review of Systems General: Fatigue, Malaise Neurological: Weakness Focused Exam Lactate Level 09/12/20 07:28: Lactic Acid Level 4.24*H 09/12/20 10:36: Lactic Acid Level 0.78 09/12/20 18:53: Lactic Acid Level 0.54 Objective Exam Vital Signs Vital Signs Date Time Temp Pulse Resp B/P (MAP) Pulse Ox O2 Delivery O2 Flow Rate FiO2 09/15/20 05:00 66 12 145/69 (94) 89 High Flow N/C 6.00 09/15/20 04:25 35.9 09/13/20 16:33 1 Capillary Refill : Less Than 3 Seconds General Appearance: No Apparent Distress, WD/WN, Chronically ill Respiratory: Lungs Clear, Normal Breath Sounds, Decreased Breath Sounds Cardiovascular: Regular Rate, Rhythm Neurologic/Psychiatric: Alert, Oriented x3, Depressed Affect Results/Procedures Lab Laboratory Tests 09/15/20 03:35 Patient resulted labs reviewed. Assessment/Plan Assessment and Plan Assess & Plan/Chief Complaint Assessment: Meningitis COVID-19 pneumonia Sepsis Hypoxia Smoker Hypothyroidism Plan: Aggressive treatment IV fluids Monitor closely 09/13/2020: Supportive care IV antibiotics Monitor closely 09/14/2020: IV fluids IV antibiotics Critical Care Critically Ill Patient Diagnosis/Problems Diagnosis/Problems (1) Meningitis Status: Acute (2) COVID-19 Status: Acute (3) Acute respiratory failure with hypoxemia Status: Acute (4) Septic shock Status: Acute GALILEA ELIZABETH DO Sep 14, 2020 06:55
[2020-09-14] MEDS ORDERED: POTASSIUM PHOSPHATE INJ 30 MM in NS (IVPB) 250 ML IV ONE (09:00)
--- NOTE | 2020-09-14 09:03 | Tele-ICU Progress Note ---
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 Hgb: 10.6 Plt: 176 Na: 147 K: 3.4 Cl: 110 CO2 22 phosp 1.7 PLAN: start lovenoox for DVT px Correct K and Phosp Otherwise continue antibiotics. Focused Exam Sepsis Stage: Sepsis Lactate Level 09/12/20 07:28: Lactic Acid Level 4.24*H 09/12/20 10:36: Lactic Acid Level 0.78 09/12/20 18:53: Lactic Acid Level 0.54 Height, Weight, BMI Height: '" Weight: lbs. oz. kg; 41.50 BMI Method: YISSEL HENSON MD Sep 14, 2020 09:03
[2020-09-14] MEDS: VANCOMYCIN 1250 MG/NS 250 ML IVPB IV SCH ×4 (09:40→22:28)
[2020-09-14] MEDS: morphine INJ 4 MG/ML 1 ML (VIAL/SYRINGE) IVP PRN ×3 (09:40→22:28)
[2020-09-14] MEDS: ENOXAPARIN 40 MG/0.4 ML (LOVENOX) SYR SC SCH ×2 (09:41→21:31)
[2020-09-14 11:43] LABS: ALBUMIN 2.8 GM/DL (3.2-4.5)
[2020-09-14 11:46] LABS: TOTAL PROTEIN 5.7 GM/DL (6.4-8.2)
[2020-09-14 11:48] LABS: BILIRUBIN,TOTAL 0.4 MG/DL (0.1-1.0)
[2020-09-14] MEDS: ACETAMINOPHEN 325 MG TABLET PO PRN (11:51)
[2020-09-14 11:52] LABS: BILIRUBIN,DIRECT 0.2 MG/DL (0.0-0.3); BILIRUBIN,INDIRECT 0.2 MG/DL
[2020-09-14] MEDS: KETOROLAC 15 MG/ML VIAL IV PRN (21:33)
[2020-09-15] MEDS: PIPERACILLIN/TAZO 4.5 GM/NS 100 ML IV SCH ×6 (00:33→18:50)
[2020-09-15] MEDS: HYDROCORTISONE 100 MG/2 ML (Solu-CORTEF) VIAL IV SCH ×3 (00:33→19:44)
[2020-09-15] MEDS: RT-ALBUTEROL INHALER HFA (VENTOLIN HFA) 18 GM IH SCH ×4 (02:25→20:47)
[2020-09-15] MEDS: NOREPINEPHRINE 8 MG/250 ML 250 ML IV SCH (02:28)
[2020-09-15] MEDS: VASOPRESSIN INJECTION 20 UNIT in NS (IVPB) 100 ML IV SCH ×2 (02:28→10:39)
[2020-09-15 04:06] LABS: BASOPHILS % (AUTO) 0 % (0-10); EOSINOPHILS % (AUTO) 0 % (0-10); HEMATOCRIT 33 % (35-52); HEMOGLOBIN 10.7 g/dL (11.5-16.0); LYMPHOCYTES # (AUTO) 0.3 10^3/uL (1.0-4.0); LYMPHOCYTES % (AUTO) 3 % (12-44); MEAN CORPUSCULAR HEMOGLOBIN 28 pg (25-34); MEAN CORPUSCULAR HGB CONC 32 g/dL (32-36); MEAN CORPUSCULAR VOLUME 88 fL (80-99); MONOCYTES # (AUTO) 0.3 10^3/uL (0.0-1.0); MONOCYTES % (AUTO) 3 % (0-12); NEUTROPHILS # (AUTO) 9.1 10^3/uL (1.8-7.8); NEUTROPHILS % (AUTO) 92 % (42-75); PLATELET COUNT 194 10^3/uL (130-400); WHITE BLOOD COUNT 9.9 10^3/uL (4.3-11.0)
[2020-09-15 04:21] LABS: POTASSIUM 4.1 MMOL/L (3.6-5.0)
[2020-09-15 04:22] LABS: CALCIUM 8.8 MG/DL (8.5-10.1)
[2020-09-15 04:26] LABS: PHOSPHORUS 2.3 MG/DL (2.3-4.7)
[2020-09-15 04:27] LABS: CREATININE SERUM 0.61 MG/DL (0.60-1.30)
[2020-09-15] MEDS: CEFEPIME 1,000 MG/SWFI 10 ML IV PUSH IV SCH ×8 (04:27→22:06)
[2020-09-15] MEDS: LACTATED RINGERS 1,000 ML IV SCH ×3 (04:27→18:50)
[2020-09-15 04:29] LABS: MAGNESIUM 1.8 MG/DL (1.6-2.4)
[2020-09-15] MEDS: morphine INJ 4 MG/ML 1 ML (VIAL/SYRINGE) IVP PRN ×2 (04:33→18:58)
[2020-09-15] MEDS: inSUlin ASPART (NovoLOG) 1 UNIT/0.01 ML (CHARGE PER UNIT) SC SCH ×4 (05:18→20:15)
[2020-09-15] MEDS ORDERED: KCL 20 MEQ TAB (K-DUR) PO SCH (06:00)
[2020-09-15] MEDS ORDERED: MAGNESIUM 1 GM/100 ML IVPB 100 ML IV SCH (06:00)
[2020-09-15] MEDS ORDERED: POTASSIUM CL 10MEQ/50ML IVPB 50 ML IV SCH (06:00)
--- NOTE | 2020-09-15 06:21 | Progress Note - Hospitalist ---
Subjective HPI/CC On Admission Date Seen by Provider: Sep 15, 2020 Time Seen by Provider: 10:30 Chief complaint: Meningitis History of present illness: This is a 60-year-old white female clinic patient of [facility] who presented yesterday with COVID-19 symptoms and was discharged home in improved condition but she came back worse with altered mental status. Patient was found to have findings consistent with encephalitis COVID-19 infection so she was placed on broad-spectrum antibiotics per protocol aggressive IV fluids placed in the ICU for aggressive management. Patient appears to be very dehydrated she is alert but extremely ill mendez and ashen. Subjective/Events-last exam Pt doing a lot better Transferring to 4th floor Midline will be placed due to IV in her breast Overall doing pretty well After rounds she decompensated and required high flow oxygen so we will hold transfer the floor Initiated a work-up with evaluation for decompensation Review of Systems General: Fatigue Pulmonary: Dyspnea, Cough Focused Exam Lactate Level Objective Exam Vital Signs Vital Signs Date Time Temp Pulse Resp B/P (MAP) Pulse Ox O2 Delivery O2 Flow Rate FiO2 09/16/20 04:00 44 25 135/70 (103) 93 High Flow N/C 8.00 09/15/20 23:50 36.5 09/13/20 16:33 1 Capillary Refill : Less Than 3 Seconds General Appearance: No Apparent Distress, WD/WN, Chronically ill Respiratory: No Accessory Muscle Use, No Respiratory Distress, Decreased Breath Sounds Cardiovascular: Regular Rate, Rhythm Neurologic/Psychiatric: Alert, Oriented x3, Depressed Affect Results/Procedures Lab Laboratory Tests 09/15/20 17:16 09/16/20 03:00 Patient resulted labs reviewed. Assessment/Plan Assessment and Plan Assess & Plan/Chief Complaint Assessment: Meningitis COVID-19 pneumonia Sepsis Hypoxia Smoker Hypothyroidism Plan: Aggressive treatment IV fluids Monitor closely 09/13/2020: Supportive care IV antibiotics Monitor closely 09/14/2020: IV fluids IV antibiotics 09/15/2020: Supportive care Stay in ICU Critical Care Critically Ill Patient Diagnosis/Problems Diagnosis/Problems (1) Meningitis Status: Acute (2) COVID-19 Status: Acute (3) Acute respiratory failure with hypoxemia Status: Acute (4) Septic shock Status: Acute GALILEA ELIZABETH DO Sep 15, 2020 06:21
[2020-09-15] MEDS: ENOXAPARIN 40 MG/0.4 ML (LOVENOX) SYR SC SCH ×2 (08:46→19:43)
--- NOTE | 2020-09-15 13:12 | Tele-ICU Progress Note ---
Subjective Date Seen by a Provider: Sep 15, 2020 Time Seen by a Provider: 13:11 Sepsis Event Evaluation Height, Weight, BMI Height: '" Weight: lbs. oz. kg; 41.50 BMI Method: Focused Exam Lactate Level 09/12/20 18:53: Lactic Acid Level 0.54 Exam Exam Patient acknowledged, consented, and participated in this virtual visit which was conducted using real time audio/video Vital Signs Date Time Temp Pulse Resp B/P (MAP) Pulse Ox O2 Delivery O2 Flow Rate FiO2 09/15/20 12:00 54 19 134/65 (88) 89 High Flow N/C 6.00 09/15/20 11:15 36.1 09/15/20 11:00 52 17 142/70 (94) 90 High Flow N/C 6.00 09/15/20 10:00 51 18 127/64 (85) 92 High Flow N/C 6.00 09/15/20 09:00 55 16 131/65 (87) 92 High Flow N/C 6.00 09/15/20 08:20 91 High Flow N/C 6.00 09/15/20 08:00 52 16 134/63 (86) 95 High Flow N/C 6.00 09/15/20 08:00 35.8 09/15/20 07:15 94 Nasal Cannula 5.00 09/15/20 07:00 53 09/15/20 07:00 51 15 128/77 (94) 94 High Flow N/C 6.00 09/15/20 06:00 52 17 140/82 (101) 89 High Flow N/C 6.00 09/15/20 05:00 66 12 145/69 (94) 89 High Flow N/C 6.00 09/15/20 04:30 95 High Flow N/C 6.00 09/15/20 04:25 35.9 High Flow N/C 6.00 09/15/20 03:00 51 13 132/100 (111) 91 High Flow N/C 8.00 09/15/20 02:27 95 High Flow N/C 7.00 09/15/20 02:00 49 13 130/57 (90) 93 High Flow N/C 8.00 09/15/20 01:00 62 16 117/61 (79) High Flow N/C 8.00 09/15/20 01:00 62 7/26/21 00:00 71 25 129/63 (85) 93 High Flow N/C 8.00 09/14/20 23:50 94 High Flow N/C 8.00 09/14/20 23:49 36.4 High Flow N/C 8.00 09/14/20 23:00 64 16 116/66 (99) 91 High Flow N/C 8.00 09/14/20 22:34 High Flow N/C 8.00 09/14/20 22:26 High Flow N/C 6.00 09/14/20 22:00 68 14 130/51 (88) 89 Nasal Cannula 5.00 09/14/20 21:35 Nasal Cannula 5.00 09/14/20 21:00 65 23 141/60 (89) 91 Nasal Cannula 4.00 09/14/20 20:00 90 Nasal Cannula 4.00 09/14/20 20:00 37.2 74 16 145/67 (93) 90 Nasal Cannula 4.00 09/14/20 19:41 36.9 09/14/20 19:26 93 Nasal Cannula 2.00 09/14/20 19:00 56 19 143/66 (91) 92 Nasal Cannula 2.00 09/14/20 19:00 56 09/14/20 18:00 68 17 138/76 (96) 93 Nasal Cannula 2.00 09/14/20 17:00 51 18 130/72 (91) 93 Nasal Cannula 2.00 09/14/20 16:00 53 13 131/66 (87) 92 Nasal Cannula 2.00 09/14/20 16:00 90 Nasal Cannula 2.00 09/14/20 16:00 36.7 09/14/20 15:00 59 24 113/55 (74) 91 Nasal Cannula 2.00 09/14/20 14:23 93 Nasal Cannula 2.00 09/14/20 14:00 66 16 120/57 (78) 91 Nasal Cannula 2.00 I & O 09/15/20 07:00 Intake Total 3202.5 ml Output Total 860 ml Balance 2342.5 ml Height & Weight Height: '" Weight: lbs. oz. kg; 41.50 BMI Method: General Appearance: No Apparent Distress, WD/WN, Chronically ill HEENT: PERRL/EOMI; No Pharynx Normal (Dry oral mucosa), No Moist Mucous Membranes Neck: Full Range of Motion, Normal Inspection, Non Tender, Supple Respiratory: Lungs Clear, Normal Breath Sounds, Decreased Breath Sounds Cardiovascular: Regular Rate, Rhythm Capillary Refill: Less Than 3 Seconds Extremity: Normal Capillary Refill, Normal Inspection, No Pedal Edema Neurologic/Psychiatric: Alert, Oriented x3, Depressed Affect Results Lab Laboratory Tests 09/14/20 03:12 09/15/20 03:35 Assessment/Plan Assessment/Plan (Tele-ICU Physician , Progress Note ) Available chart/ vitals / labs / Images reviewed Video assessment done using teleICU camera, rest of exam as per RN Discussed with RN Events overnight : Afebrile hemodynamically stable, no pressors, I/O = pos 3L since admission Drips: LR As per RN exam : Consultants: Hospital course: 09/10- covid + , in ER with fatigye - CT - no PE , RUL infiltrate - prescrived ABX 09/12 - in ER Fever 103.7, seizure-like activity , encephalopathy A/P A/P seizure-like activity , encephalopathy - CTH 09/12- maxillary/sphenoid sinusitis by corresponding CTs - +/- meningitis --> Tx with abx -CT with Left convexity subdural collection - as per radiology can be blood due to trauma - can not do MRI with spinal stimulator - ( tox screen negative ) - LP done 09/12 - opening pressire - reportedly on Tramadol - and flexeril- combo can contribute to confusion and Sz ( especially if taken extra Sepsis, Fever 103.7 - recent Covid + - with very high PCT of 80- bact infection is very likely , UA clear , 09/11 - CT - no PE , - RUL infiltrate+ maxillary/sphenoid sinusitis by corresponding CTs - +/- meningitis ---covered with ABX- -Zosyn cefepime and vancomycin for empiric meningitis coverage ---stress dose of steroid given metabolic acidosis - lactate normalized h/o [employer] dz - started on hydrocortisone , stress dose 100 q8 - will taper down Anemia - probablt delutional H/o non-Hodgkin's lymphoma (s/p chemotherapy. Obesity Lines : midline Colbert: 09/12 - needs to come out OG: Nutrition: Analgesia: Anxiety/ delirium VTE Prophylaxis: lovenox Stress Ulcer Prophylaxis: Glycemic Control: Plans in collaboration with bedside consultants and IM MDs. Discussed with RN to reach out if any questions or concerns A total of 25 minutes of critical care time was devoted to this patient today, required to treat and/or prevent further deterioration of critical care condition ( as above) . JOSE E ZUNIGA MD Sep 15, 2020 13:12
--- NOTE | 2020-09-15 17:20 | Diagnostic Imaging Report ---
EXAMINATION: Chest radiograph, portable AP view. DATE: 09/15/2020 5:11 PM INDICATION: 60-year-old female, shortness of breath. History of Covid 19 infection. COMPARISON: September 13, 2020. FINDINGS: Stable overall appearance of the cardiomediastinal silhouette. There is no identified pneumothorax. There is no large pleural effusion. There is multifocal bilateral alveolar lung consolidation which is essentially unchanged. There are leads overlying the thoracic spine. There are right upper quadrant surgical clips. IMPRESSION: 1. Unchanged multifocal bilateral lung consolidation. Dictated by: Dictated on workstation # [id number]
[2020-09-15 17:31] LABS: BASOPHILS % (AUTO) 0 % (0-10); EOSINOPHILS % (AUTO) 0 % (0-10); HEMATOCRIT 33 % (35-52); HEMOGLOBIN 10.6 g/dL (11.5-16.0); LYMPHOCYTES # (AUTO) 0.4 10^3/uL (1.0-4.0); LYMPHOCYTES % (AUTO) 4 % (12-44); MEAN CORPUSCULAR HEMOGLOBIN 29 pg (25-34); MEAN CORPUSCULAR HGB CONC 33 g/dL (32-36); MEAN CORPUSCULAR VOLUME 88 fL (80-99); MEAN PLATELET VOLUME 10.8 fL (9.0-12.2); MONOCYTES # (AUTO) 0.4 10^3/uL (0.0-1.0); MONOCYTES % (AUTO) 4 % (0-12); NEUTROPHILS # (AUTO) 9.6 10^3/uL (1.8-7.8); NEUTROPHILS % (AUTO) 90 % (42-75); PLATELET COUNT 182 10^3/uL (130-400); WHITE BLOOD COUNT 10.6 10^3/uL (4.3-11.0)
[2020-09-15 17:42] LABS: ALBUMIN 2.8 GM/DL (3.2-4.5)
[2020-09-15 17:43] LABS: POTASSIUM 3.7 MMOL/L (3.6-5.0)
[2020-09-15 17:44] LABS: CALCIUM 8.7 MG/DL (8.5-10.1)
[2020-09-15 17:45] LABS: TOTAL PROTEIN 5.8 GM/DL (6.4-8.2)
[2020-09-15 17:47] LABS: BILIRUBIN,TOTAL 0.5 MG/DL (0.1-1.0)
[2020-09-15 17:49] LABS: CREATININE SERUM 0.62 MG/DL (0.60-1.30)
[2020-09-15 17:52] LABS: LYMPHOCYTES % (MANUAL) 2 %; MONOCYTES % (MANUAL) 5 %; NEUTROPHILS % (MANUAL) 93 %
[2020-09-15 17:53] LABS: RBC MORPH NORMAL
[2020-09-15 18:35] LABS: ABG BASE EXCESS 5.2 MMOL/L (-2.5-2.5); ABG OXYGEN SATURATION 96 % (94-100); ABG PCO2 38 MMHG (35-45); ABG PH 7.49 (7.37-7.43); ABG PO2 68 MMHG (79-93); ABG TCO2 29.9 MMOL/L (21.0-31.0); ALLENS TEST YES-POS; INSPIRED O2 13L; PATIENT TEMP 36.2; VENTILATOR NO
[2020-09-15] MEDS ORDERED: FUROSEMIDE 40 MG/4 ML INJ (LASIX) IVP ONE (18:45)
[2020-09-15] MEDS: KETOROLAC 15 MG/ML VIAL IV PRN (19:43)
[2020-09-15] MEDS: ACETAMINOPHEN 325 MG TABLET PO PRN (19:43)
[2020-09-16] MEDS: PIPERACILLIN/TAZO 4.5 GM/NS 100 ML IV SCH ×6 (01:05→17:21)
[2020-09-16] MEDS: RT-ALBUTEROL INHALER HFA (VENTOLIN HFA) 18 GM IH SCH ×4 (02:28→20:45)
[2020-09-16 03:33] LABS: BASOPHILS % (AUTO) 0 % (0-10); EOSINOPHILS % (AUTO) 0 % (0-10); HEMATOCRIT 31 % (35-52); HEMOGLOBIN 10.2 g/dL (11.5-16.0); LYMPHOCYTES # (AUTO) 0.4 10^3/uL (1.0-4.0); LYMPHOCYTES % (AUTO) 4 % (12-44); MEAN CORPUSCULAR HEMOGLOBIN 29 pg (25-34); MEAN CORPUSCULAR HGB CONC 33 g/dL (32-36); MEAN CORPUSCULAR VOLUME 88 fL (80-99); MEAN PLATELET VOLUME 11.3 fL (9.0-12.2); MONOCYTES # (AUTO) 0.4 10^3/uL (0.0-1.0); MONOCYTES % (AUTO) 4 % (0-12); NEUTROPHILS # (AUTO) 7.9 10^3/uL (1.8-7.8); NEUTROPHILS % (AUTO) 89 % (42-75); PLATELET COUNT 246 10^3/uL (130-400); WHITE BLOOD COUNT 8.8 10^3/uL (4.3-11.0)
[2020-09-16 03:49] LABS: CALCIUM 8.4 MG/DL (8.5-10.1)
[2020-09-16 03:53] LABS: CREATININE SERUM 0.59 MG/DL (0.60-1.30)
[2020-09-16 03:56] LABS: MAGNESIUM 1.7 MG/DL (1.6-2.4)
--- NOTE | 2020-09-16 05:31 | Progress Note - Hospitalist ---
Subjective HPI/CC On Admission Date Seen by Provider: Sep 16, 2020 Time Seen by Provider: 10:00 Chief complaint: Meningitis History of present illness: This is a 60-year-old white female clinic patient of pending sale to [facility] who presented yesterday with COVID-19 symptoms and was discharged home in improved condition but she came back worse with altered mental status. Patient was found to have findings consistent with encephalitis COVID-19 infection so she was placed on broad-spectrum antibiotics per protocol aggressive IV fluids placed in the ICU for aggressive management. Patient appears to be very dehydrated she is alert but extremely ill tyler and ashen. Subjective/Events-last exam Pt doing okay but still appears to be very rough High risk for decompensation Potassium will be replaced IV antibiotics maintained Heplock IV fluid for overload yesterday Review of Systems General: Fatigue, Malaise Pulmonary: Dyspnea, Cough Objective Exam Vital Signs Vital Signs Date Time Temp Pulse Resp B/P (MAP) Pulse Ox O2 Delivery O2 Flow Rate FiO2 09/16/20 19:45 93 High Flow N/C 10.00 09/16/20 19:31 36.5 09/16/20 18:00 61 17 09/13/20 16:33 1 Capillary Refill : Less Than 3 Seconds General Appearance: No Apparent Distress, WD/WN, Chronically ill, Other (Tyler and ashen) Respiratory: No Accessory Muscle Use, No Respiratory Distress, Decreased Breath Sounds Cardiovascular: Regular Rate, Rhythm Neurologic/Psychiatric: Alert, Oriented x3 Results/Procedures Lab Laboratory Tests 09/16/20 03:00 Patient resulted labs reviewed. Assessment/Plan Assessment and Plan Assess & Plan/Chief Complaint Assessment: Meningitis COVID-19 pneumonia Sepsis Hypoxia Smoker Hypothyroidism Plan: Aggressive treatment IV fluids Monitor closely 09/13/2020: Supportive care IV antibiotics Monitor closely 09/14/2020: IV fluids IV antibiotics 09/15/2020: Supportive care Stay in ICU 09/16/2020: Hopefully transfer to floor Monitor closely Critical Care Critically Ill Patient Diagnosis/Problems Diagnosis/Problems (1) Meningitis Status: Acute (2) COVID-19 Status: Acute (3) Acute respiratory failure with hypoxemia Status: Acute (4) Septic shock Status: Acute GALILEA ELIZABETH DO Sep 16, 2020 05:31
[2020-09-16] MEDS: inSUlin ASPART (NovoLOG) 1 UNIT/0.01 ML (CHARGE PER UNIT) SC SCH ×4 (05:38→20:54)
[2020-09-16] MEDS ORDERED: POTASSIUM CL 10MEQ/50ML IVPB 250 ML IV ONE (05:43)
[2020-09-16] MEDS ORDERED: MAGNESIUM 1 GM/100 ML IVPB 200 ML IV ONE (05:43)
[2020-09-16] MEDS: CEFEPIME 1,000 MG/SWFI 10 ML IV PUSH IV SCH ×8 (05:49→23:42)
[2020-09-16] MEDS: MAGNESIUM 1 GM/100 ML IVPB 100 ML IV SCH ×2 (05:50→06:50)
[2020-09-16] MEDS: POTASSIUM CL 10MEQ/50ML IVPB 50 ML IV SCH ×8 (05:50→11:23)
[2020-09-16] MEDS ORDERED: MAGNESIUM 1 GM/100 ML IVPB 100 ML IV ONE (08:00)
[2020-09-16] MEDS: HYDROCORTISONE 100 MG/2 ML (Solu-CORTEF) VIAL IV SCH ×2 (08:18→20:58)
[2020-09-16] MEDS: ENOXAPARIN 40 MG/0.4 ML (LOVENOX) SYR SC SCH ×2 (08:18→20:54)
--- NOTE | 2020-09-16 08:42 | Diagnostic Imaging Report ---
EXAMINATION: Chest 1 view HISTORY: Covid-19 COMPARISON: 09/15/2020 FINDINGS: There are stable moderate bilateral airspace opacities. No pleural effusion or pneumothorax. Heart size is unchanged. Spinal stimulator is present. IMPRESSION: 1. Stable moderate bilateral airspace opacities consistent with history of Covid-19 pneumonia. Dictated by: Dictated on workstation # [id number]
[2020-09-16] MEDS: KETOROLAC 15 MG/ML VIAL IV PRN ×2 (10:40→20:55)
[2020-09-16] MEDS: ACETAMINOPHEN 325 MG TABLET PO PRN ×2 (10:40→20:54)
--- NOTE | 2020-09-16 11:58 | Physical Therapy Evaluation ---
PT Evaluation-General Medical Diagnosis Admission Date Sep 12, 2020 at 09:00 Medical Diagnosis: Severe sepsis/Covid/Meningitis Onset Date: Sep 12, 2020 Therapy Diagnosis Therapy Diagnosis: generalized weakness/debility Precautions Precautions/Isolations: Airborne Isolation, Fall Prevention, Standard Precautions Referral Physician: Floridalma Reason for Referral: Evaluation/Treatment Medical History Pertinent Medical History: COPD, Hypothroidism, Smoking Additional Medical History Non Hodgkins Lymphoma Current History EMS secondary to seizure like activity per family Reviewed History: Yes Social History Home: Apartment Prior Prior Level of Function SCALE: Activities may be completed with or without assistive devices. 2-Mycjzdpqqr-yrvfxub completes the activity by him/herself with no assistance from a helper. 5-Set-up or Clean-up Assistance-helper sets up or cleans up; patient completes activity. [place] assists only prior to or following the activity. 4-Supervision or Touching Assistance-helper provides verbal cues and/or touching/steadying and/or contact guard assistance as patient completes activity. Assistance may be provided throughout the activity or intermittently. 3-Partial/Moderate Assistance-helper does LESS THAN HALF the effort. [place] l ifts, holds or supports trunk or limbs, but provides less than half the effort. 2-Substantial/Maximal Assistance-helper does MORE THAN HALF the effort. [place] lifts or holds trunk or limbs and provides more than half the effort. 1-Ptslntsyl-bpgjam does ALL the effort. Patient does none of the effort to complete the activity. Or, the assistance of 2 or more helpers is required for t he patient to complete the activity. If activity was not attempted, code reason: 7-Patient Refused. 9-Not Applicable-not attempted and the patient did not perform the activity before the current illness, exacerbation or injury. 10-Not Attempted due to Environmental Limitations-(lack of equipment, weather restraints, etc.). 88-Not Attempted due to Medical Conditions or Safety Concerns. Bed Mobility: 6 Transfers (B,C,W/C): 6 Gait: 6 Indoor Mobility (Ambulation): Independent Prior Devices Use: None PT Evaluation-Current Subjective Patient agrees to PT. Objective Patient Orientation: Person, Time, Situation Attachments: Oxygen (HF/NC), Colbert Catheter, IV ROM/Strength ROM Lower Extremities bilateral LE WFL Strength Lower Extremities 3+/5 grossly bilateral LE Integumentary/Posture Bladder Incontinence: Colbert Cath Posture WFL Neuromuscular (Tone, Coordination, Reflexes) grossly intact Sensory Vision: Functional Hearing: Functional Transfers Roll Left to Right (QC): 6 Sit to Lying (QC): 6 Lying to Sitting/Side of Bed(Q: 6 Sit to Stand (QC): 4 Chair/Bqs-zy-Zfkzv Xfer(QC): 88 Toilet Transfer (QC): 88 Gait Does the Patient Walk?: No and Walking Goal IS indicated Balance Sitting Static: Normal Sitting Dynamic: Normal Standing Static: Fair Standing Dynamic: Fair Assessment/Needs decreased SAO2 with minimal activity/generalized weakness/debility/impaired lung function Rehab Potential: Guarded PT Care Home Goals Care Home Goals PT Care Home Goals Time Frame: Oct 04, 2020 Roll Left & Right (QC): 6 Sit to Lying (QC): 6 Lying-Sitting on Side/Bed(QC): 6 Sit to Stand (QC): 6 Chair/Aqe-ac-Zjpnm Xfer(QC): 6 Does the Patient Walk: Yes Walk 10 feet (QC): 4 Walk 50ft with 2 Turns (QC): 4 PT Plan Problem List Problem List: Activity Tolerance, Functional Strength, Safety, Balance, Gait, Transfer Treatment/Plan Treatment Plan: Continue Plan of Care Treatment Plan: Bed Mobility, Education, Functional Activity Chantal, Functional Strength, Gait, Safety, Therapeutic Exercise, Transfers Treatment Duration: Oct 04, 2020 Frequency: 6 times per week Estimated Hrs Per Day: .25 hour per day Patient and/or Family Agrees t: Yes Time/GCodes Time In: 1109 Time Out: 1120 Total Billed Treatment Time: 11 Total Billed Treatment 1 visit [facility] 11 min SAIRA FLORES PT Sep 16, 2020 11:58
--- NOTE | 2020-09-16 12:29 | Tele-ICU Progress Note ---
Subjective Date Seen by a Provider: Sep 16, 2020 Time Seen by a Provider: 12:28 Sepsis Event Evaluation Height, Weight, BMI Height: '" Weight: lbs. oz. kg; 41.50 BMI Method: Exam Exam Patient acknowledged, consented, and participated in this virtual visit which was conducted using real time audio/video Vital Signs Date Time Temp Pulse Resp B/P (MAP) Pulse Ox O2 Delivery O2 Flow Rate FiO2 09/16/20 11:00 52 24 133/78 (96) 89 High Flow N/C 8.00 09/16/20 10:00 53 32 149/77 (101) 90 High Flow N/C 8.00 09/16/20 09:00 59 15 129/70 (89) 88 High Flow N/C 8.00 09/16/20 08:04 35.9 09/16/20 08:00 94 High Flow N/C 8.00 09/16/20 08:00 55 15 131/74 (93) 88 High Flow N/C 8.00 09/16/20 07:02 94 Nasal Cannula 8.00 09/16/20 07:00 44 25 139/72 (94) 92 High Flow N/C 8.00 09/16/20 07:00 47 09/16/20 06:00 53 16 143/73 (96) 90 High Flow N/C 8.00 09/16/20 05:00 53 17 140/97 (111) 90 High Flow N/C 8.00 09/16/20 04:00 44 25 135/70 (103) 93 High Flow N/C 8.00 09/16/20 03:40 94 High Flow N/C 6.00 09/16/20 03:00 45 28 132/65 (97) 94 High Flow N/C 8.00 09/16/20 02:28 95 Nasal Cannula 8.00 09/16/20 02:00 60 11 133/65 (93) 95 High Flow N/C 8.00 09/16/20 01:00 47 16 129/70 (106) 95 High Flow N/C 8.00 09/16/20 01:00 47 09/16/20 00:00 45 28 121/58 (73) 94 High Flow N/C 8.00 09/15/20 23:50 93 High Flow N/C 8.00 09/15/20 23:50 36.5 43 High Flow N/C 8.00 09/15/20 23:00 49 17 125/77 (92) 92 High Flow N/C 10.00 09/15/20 22:00 52 17 95/51 (65) 91 High Flow N/C 10.00 09/15/20 21:00 56 120/60 (95) 92 High Flow N/C 10.00 09/15/20 20:48 94 Nasal Cannula 10.00 09/15/20 20:00 56 19 121/68 (96) 94 High Flow N/C 10.00 09/15/20 19:45 92 High Flow N/C 10.00 09/15/20 19:30 36.1 57 14 94 High Flow N/C 10.00 09/15/20 19:00 58 09/15/20 18:00 53 93 High Flow N/C 12.00 09/15/20 17:00 51 12 93 High Flow N/C 12.00 09/15/20 16:00 92 High Flow N/C 11.00 09/15/20 16:00 37.2 09/15/20 16:00 67 17 144/79 (100) 92 High Flow N/C 12.00 09/15/20 15:30 High Flow N/C 12.00 09/15/20 15:01 92 Nasal Cannula 5.00 09/15/20 15:00 49 19 142/86 (104) 92 High Flow N/C 6.00 09/15/20 14:00 49 18 142/86 (104) 92 High Flow N/C 6.00 09/15/20 13:00 60 16 90 High Flow N/C 6.00 09/15/20 13:00 56 I & O 09/16/20 07:00 Intake Total 1035 ml Output Total 3310 ml Balance -2275 ml Height & Weight Height: '" Weight: lbs. oz. kg; 41.50 BMI Method: General Appearance: No Apparent Distress, WD/WN, Chronically ill HEENT: PERRL/EOMI; No Pharynx Normal (Dry oral mucosa), No Moist Mucous Membranes Neck: Full Range of Motion, Normal Inspection, Non Tender, Supple Respiratory: No Accessory Muscle Use, No Respiratory Distress, Decreased Breath Sounds Cardiovascular: Regular Rate, Rhythm Capillary Refill: Less Than 3 Seconds Extremity: Normal Capillary Refill, Normal Inspection, No Pedal Edema Neurologic/Psychiatric: Alert, Oriented x3, Depressed Affect Results Lab Laboratory Tests 09/15/20 03:35 09/15/20 17:16 09/16/20 03:00 Assessment/Plan Assessment/Plan Tele-ICU Physician , Progress Note ) Available chart/ vitals / labs / Images reviewed Video assessment done using teleICU camera, rest of exam as per RN Discussed with RN Events overnight : Afebrile hemodynamically stable, no pressors, I/O = pos 3L first 3 days , now neg 600 Drips: LR As per RN exam Consultants: Hospital course: 09/10- covid + , in ER with fatigye - CT - no PE , RUL infiltrate - prescrived ABX 09/12 - in ER Fever 103.7, seizure-like activity , encephalopathy 09/16 - 10 L o2 A/P seizure-like activity , encephalopathy - CTH 09/12- maxillary/sphenoid sinusitis by corresponding CTs - +/- meningitis --> Tx with abx -CT with Left convexity subdural collection - as per radiology can be blood due to trauma - can not do MRI with spinal stimulator - ( tox screen negative ) - LP done 09/12 - opening pressire 23 , Cx neg, mildly elev protein with Nl glucose - reportedly on Tramadol - and flexeril- combo can contribute to confusion and Sz ( especially if taken extra ) Acute resp failure - increased need for O2 - ? Covid , VO with fluid resuscitation , atelectasis , PNA - lasix x1 Sepsis, Fever 103.7 - recent Covid + - with very high PCT of 80- bact infection is very likely , UA clear , 09/11 - CT - no PE , - RUL infiltrate+ maxillary/sphenoid sinusitis by corresponding CTs - +/- meningitis ( LP is not supportive ---covered with ABX- -Zosyn cefepime and vancomycin for empiric meningitis coverage ---stress dose of steroid given - TAPERING DOWN metabolic acidosis - lactate normalized h/o [place] dz - started on hydrocortisone , stress dose 100 q8 - will taper down again today Anemia - delutional H/o non-Hodgkin's lymphoma (s/p chemotherapy. Obesity Lines : midline Colbert: 09/12 - needs to come out OG: Nutrition: Analgesia: Anxiety/ delirium VTE Prophylaxis: lovenox Stress Ulcer Prophylaxis: Glycemic Control: Plans in collaboration with bedside consultants and IM MDs. Discussed with RN to reach out if any questions or concerns A total of 35 minutes of critical care time was devoted to this patient today, required to treat and/or prevent further deterioration of critical care condition ( as above) . JOSE E ZUNIGA MD Sep 16, 2020 12:29
[2020-09-16] MEDS ORDERED: FUROSEMIDE 40 MG/4 ML INJ (LASIX) IVP ONE (12:30)
--- NOTE | 2020-09-16 15:54 | Occupational Therapy Eval ---
OT Evaluation-General/PLF Medical Diagnosis Admission Date Sep 12, 2020 at 09:00 Medical Diagnosis: Severe sepsis/Covid/Meningitis Onset Date: Sep 12, 2020 Therapy Diagnosis Therapy Diagnosis: Weakness, Decreased ADL skills Precautions Precautions/Isolations: Airborne Isolation, Fall Prevention, Standard Precautions Weight Bear Status Weight Bearing Restriction: Weight Bearing/Tolerated Referral Physician: Floridalma Referral Reason: Activity Tolerance, Self Care, Evaluation/Treatment, Strengthening/ROM Medical History Pertinent Medical History: COPD, Hypothroidism, Smoking Additional Medical History Non Hodgkins lymphoma Current History EMS summonsed secondary to seizure like activity per family. Reviewed History: Yes Social History Home: Apartment Current Living Status: Children ADL-Prior Level of Function SCALE: Activities may be completed with or without assistive devices. 1-Kcwpasjahf-mysgqri completes the activity by him/herself with no assistance from a helper. 5-Set-up or Clean-up Assistance-helper sets up or cleans up; patient completes activity. [place] assists only prior to or following the activity. 4-Supervision or Touching Assistance-helper provides verbal cues and/or touching/steadying and/or contact guard assistance as patient completes activity. Assistance may be provided throughout the activity or intermittently. 3-Partial/Moderate Assistance-helper does LESS THAN HALF the effort. [place] lifts, holds or supports trunk or limbs, but provides less than half the effort. 2-Substantial/Maximal Assistance-helper does MORE THAN HALF the effort. [place] lifts or holds trunk or limbs and provides more than half the effort. 8-Rtbekajsr-lvfarn does ALL the effort. Patient does none of the effort to complete the activity. Or, the assistance of 2 or more helpers is required for the patient to complete the activity. If activity was not attempted, code reason: 7-Patient Refused. 9-Not Applicable-not attempted and the patient did not perform the activity before the current illness, exacerbation or injury. 10-Not Attempted due to Environmental Limitations-(lack of equipment, weather restraints, etc.). 88-Not Attempted due to Medical Conditions or Safety Concerns. ADL PLOF Comments Pt. states that she has her own apartment, but that she lives with her daughter. She states that her daughter can assist her as needed. Pt. reports that she was using a walker "sometimes" previous to this illness, but was independent with daily skills. Self Care: Independent Functional Cognition: Independent DME/Equipment Comments Pt. has walker. Drive Self: Yes OT Current Status Subjective Pt. does not report pain, but does report being SOA. Mental Status/Objective Patient Orientation: Person, Place, Time, Situation Attachments: Colbert Catheter, IV, Oxygen Current Upper Extremity ROM WFL ADL-Treatment Eating (QC): 4 (Pt. states that the only thing she is consuming is Ensure shakes because she has not been very hungry. Pt. does pick this up and drinks while OT present.) Lower Body Dressing (QC): 1 (Per clinical judgement.) On/Off Footwear (QC): 1 Other Treatments Nursing okay for OT to work with pt. Pt. on high oxygen. Oxygen saturations at 88% prior to pt. transferring. Pt. transfers supine-sit with SBA and increased time. Oxygen saturations drop to 80%. Pt. sits EOB and educated on deep breathing exercises to increase saturations. Saturations slowly rise to 84%. Pt. transfers self back to bed, supine position with HOB elevated. Pt. falls asleep. OT monitors oxygen. Saturations rise to 87%. All needs met. Nursing notified. Education OT Patient Education: Correct positioning, Modified ADL techniques, Progress toward Goal/Update tx plan, Purpose of tx/functional activities, Reviewed precautions, Rehab process, Transfer techniques Teaching Recipient: Patient Teaching Methods: Demonstration, Discussion Response to Teaching: Verbalize Understanding, Return Demonstration OT Short Term Goals Short Term Goals Time Frame: Sep 23, 2020 Eatin Oral hygiene: 4 Toileting hygiene: 3 Upper body dressin Lower body dressin Putting on/taking off footwear: 3 OT Senior Care Goals Senior Care Goals Time Frame: Oct 07, 2020 Eating (QC): 6 Oral Hygiene (QC): 6 Toileting Hygiene (QC): 4 Shower/Bathe Self (QC): 4 Upper Body Dressing (QC): 5 Lower Body Dressing (QC): 4 On/Off Footwear (QC): 4 Additional Goals: 1-Demonstrate ADL Tasks, 2-Verbalize Understanding, 3- ImproveStrength/Chantal 1=Demonstrate adherence to instructed precautions during ADL tasks. 2=Patient will verbalize/demonstrate understanding of assistive devices/modifications for ADL. 3=Patient will improve strength/tolerance for activity to enable patient to perform ADL's. OT Education/Plan Problem List/Assessment Assessment: Decreased Activ Tolerance, Impaired Bed Mobility, Impaired I ADL's, Impaired Self-Care Skills Discharge Recommendations Plan/Recommendations: Continue POC Therapy Discharge Recommendati: Post Acute OT Treatment Plan/Plan of Care Treatment,Training & Education: Yes Patient would benefit from OT for education, treatment and training to promote independence in ADL's, mobility, safety and/or upper extremity function for ADL's. Plan of Care: ADL Retraining, Functional Mobility, UE Funct Exercise/Act Treatment Duration: Oct 07, 2020 Frequency: 5 times per week Estimated Hrs Per Day: .25 hour per day Agreement: Yes Rehab Potential: Fair Time/GCodes Start Time: 14:00 Stop Time: 14:15 Total Time Billed (hr/min): 15 Billed Treatment Time 1, ISAIAS LEYVA OT Sep 16, 2020 15:54
[2020-09-17] MEDS: PIPERACILLIN/TAZO 4.5 GM/NS 100 ML IV SCH ×4 (00:59→11:29)
[2020-09-17] MEDS: RT-ALBUTEROL INHALER HFA (VENTOLIN HFA) 18 GM IH SCH ×4 (02:47→21:33)
[2020-09-17 03:32] LABS: BASOPHILS % (AUTO) 0 % (0-10); EOSINOPHILS % (AUTO) 0 % (0-10); HEMATOCRIT 33 % (35-52); HEMOGLOBIN 10.8 g/dL (11.5-16.0); LYMPHOCYTES # (AUTO) 0.5 10^3/uL (1.0-4.0); LYMPHOCYTES % (AUTO) 7 % (12-44); MEAN CORPUSCULAR HEMOGLOBIN 28 pg (25-34); MEAN CORPUSCULAR HGB CONC 32 g/dL (32-36); MEAN CORPUSCULAR VOLUME 88 fL (80-99); MEAN PLATELET VOLUME 10.5 fL (9.0-12.2); MONOCYTES # (AUTO) 0.4 10^3/uL (0.0-1.0); MONOCYTES % (AUTO) 6 % (0-12); NEUTROPHILS # (AUTO) 5.6 10^3/uL (1.8-7.8); NEUTROPHILS % (AUTO) 81 % (42-75); PLATELET COUNT 294 10^3/uL (130-400)
[2020-09-17 03:49] LABS: POTASSIUM 2.9 MMOL/L (3.6-5.0)
[2020-09-17 03:51] LABS: CALCIUM 8.5 MG/DL (8.5-10.1)
[2020-09-17 03:55] LABS: CREATININE SERUM 0.6 MG/DL (0.60-1.30); PHOSPHORUS 2.7 MG/DL (2.3-4.7)
[2020-09-17] MEDS: inSUlin ASPART (NovoLOG) 1 UNIT/0.01 ML (CHARGE PER UNIT) SC SCH ×4 (04:01→20:35)
[2020-09-17] MEDS ORDERED: POTASSIUM CL 10MEQ/50ML IVPB 250 ML IV ONE (04:05)
[2020-09-17] MEDS: CEFEPIME 1,000 MG/SWFI 10 ML IV PUSH IV SCH ×2 (04:12)
[2020-09-17] MEDS: POTASSIUM CL 10MEQ/50ML IVPB 50 ML IV SCH ×4 (04:12→10:56)
--- NOTE | 2020-09-17 05:21 | Progress Note - Hospitalist ---
Subjective HPI/CC On Admission Date Seen by Provider: Sep 17, 2020 Time Seen by Provider: 10:00 Chief complaint: Meningitis History of present illness: This is a 60-year-old white female clinic patient of [facility] who presented yesterday with COVID-19 symptoms and was discharged home in improved condition but she came back worse with altered mental status. Patient was found to have findings consistent with encephalitis COVID-19 infection so she was placed on broad-spectrum antibiotics per protocol aggressive IV fluids placed in the ICU for aggressive management. Patient appears to be very dehydrated she is alert but extremely ill mendez and ashen. Subjective/Events-last exam Pt doing pretty well Transferring to 4th floor Remains on 4 liters of oxygen Desaturation noted with activity Bowels are moving PT and OT got her on the side of the bed Review of Systems General: Fatigue Pulmonary: Dyspnea, Cough Objective Exam Vital Signs Vital Signs Date Time Temp Pulse Resp B/P (MAP) Pulse Ox O2 Delivery O2 Flow Rate FiO2 09/17/20 21:33 93 Nasal Cannula 2.00 09/17/20 19:11 37.0 76 18 163/85 (111) 09/13/20 16:33 1 Capillary Refill : Less Than 3 Seconds General Appearance: No Apparent Distress, WD/WN, Chronically ill, Obese Respiratory: No Accessory Muscle Use, No Respiratory Distress, Crackles, Decre ased Breath Sounds Cardiovascular: Regular Rate, Rhythm Neurologic/Psychiatric: Alert, Oriented x3, Depressed Affect Results/Procedures Lab Laboratory Tests 09/17/20 03:25 Patient resulted labs reviewed. Assessment/Plan Assessment and Plan Assess & Plan/Chief Complaint Assessment: Meningitis COVID-19 pneumonia Sepsis Hypoxia Smoker Hypothyroidism Plan: Aggressive treatment IV fluids Monitor closely 09/13/2020: Supportive care IV antibiotics Monitor closely 09/14/2020: IV fluids IV antibiotics 09/15/2020: Supportive care Stay in ICU 09/16/2020: Hopefully transfer to floor Monitor closely 09/16/2020: Transfer to fourth floor Supportive care IV antibiotics 09/17/2020: Supportive care Lovenox Antibiotics Critical Care Critically Ill Patient Diagnosis/Problems Diagnosis/Problems (1) Meningitis Status: Acute (2) COVID-19 Status: Acute (3) Acute respiratory failure with hypoxemia Status: Acute (4) Septic shock Status: Acute GALILEA ELIZABETH DO Sep 17, 2020 05:21
[2020-09-17 06:34] LABS: ALBUMIN 2.8 GM/DL (3.2-4.5)
[2020-09-17 06:37] LABS: TOTAL PROTEIN 5.6 GM/DL (6.4-8.2)
[2020-09-17 06:39] LABS: BILIRUBIN,TOTAL 0.5 MG/DL (0.1-1.0)
[2020-09-17 06:42] LABS: BILIRUBIN,DIRECT 0.3 MG/DL (0.0-0.3); BILIRUBIN,INDIRECT 0.2 MG/DL
--- NOTE | 2020-09-17 10:52 | Occupational Ther Daily Note ---
OT Current Status-Daily Note Subjective Pt in bed, dozing. Woke to name. Working with PT due to O2 levels dropping with any movement and increased fatigue. Mental Status/Objective Patient Orientation: Person, Place, Time, Situation Attachments: Colbert Catheter, IV, Oxygen, Telemetry ADL-Treatment Therapy Code Descriptions/Definitions Functional [place] Measure: 0=Not Assessed/NA 4=Minimal Assistance 1=Total Assistance 5=Supervision or Setup 2=Maximal Assistance 6=Modified [place] 3=Moderate Assistance 7=Complete IndependenceSCALE: Activities may be completed with or without assistive devices. 8-Mydwqilalp-dyabljc completes the activity by him/herself with no assistance from a helper. 5-Set-up or Clean-up Assistance-helper sets up or cleans up; patient completes activity. [place] assists only prior to or following the activity. 4-Supervision or Touching Assistance-helper provides verbal cues and/or touching/steadying and/or contact guard assistance as patient completes activity. Assistance may be provided throughout the activity or intermittently. 3-Partial/Moderate Assistance-helper does LESS THAN HALF the effort. [place] lifts, holds or supports trunk or limbs, but provides less than half the effort. 2-Substantial/Maximal Assistance-helper does MORE THAN HALF the effort. [place] lifts or holds trunk or limbs and provides more than half the effort. 2-Oeaobepqq-ryydos does ALL the effort. Patient does none of the effort to complete the activity. Or, the assistance of 2 or more helpers is required for the patient to complete the activity. If activity was not attempted, code reason: 7-Patient Refused. 9-Not Applicable-not attempted and the patient did not perform the activity before the current illness, exacerbation or injury. 10-Not Attempted due to Environmental Limitations-(lack of equipment, weather restraints, etc.). 88-Not Attempted due to Medical Conditions or Safety Concerns. Other Treatment Pt on Hi-flow at 3L. Supine <--> EOB SBA and assist to manipulate all tubing. CGA for pt to transfer from bed <--> chair. Pt took increased time to recover from movement. After therapy, pt lying in bed with call light/phone in reach. All needs met in room. OT Short Term Goals Short Term Goals Time Frame: Sep 23, 2020 Eatin Oral hygiene: 4 Toileting hygiene: 3 Upper body dressin Lower body dressin Putting on/taking off footwear: 3 OT Supervisor [employer] Goals [facility] Goals Time Frame: Oct 07, 2020 Eating (QC): 6 Oral Hygiene (QC): 6 Toileting Hygiene (QC): 4 Shower/Bathe Self (QC): 4 Upper Body Dressing (QC): 5 Lower Body Dressing (QC): 4 On/Off Footwear (QC): 4 Additional Goals: 1-Demonstrate ADL Tasks, 2-Verbalize Understanding, 3- ImproveStrength/Chantal 1=Demonstrate adherence to instructed precautions during ADL tasks. 2=Patient will verbalize/demonstrate understanding of assistive devices/modifications for ADL. 3=Patient will improve strength/tolerance for activity to enable patient to perform ADL's. OT Education/Plan Problem List/Assessment Assessment: Decreased Activ Tolerance, Decreased Safety Aware, Decreased UE Strength, Impaired Self-Care Skills Discharge Recommendations Plan/Recommendations: Continue POC Treatment Plan/Plan of Care Patient would benefit from OT for education, treatment and training to promote independence in ADL's, mobility, safety and/or upper extremity function for ADL's. Plan of Care: ADL Retraining, Functional Mobility, UE Funct Exercise/Act Treatment Duration: Oct 07, 2020 Frequency: 5 times per week Estimated Hrs Per Day: .25 hour per day Agreement: Yes Rehab Potential: Fair Time/GCodes Start Time: 09:50 Stop Time: 10:16 Total Time Billed (hr/min): 26 Billed Treatment Time 1 visit-FA 2 (26 min) ORION MONTES Sep 17, 2020 10:52
--- NOTE | 2020-09-17 10:55 | Physical Therapy Daily Note ---
PT Daily Note-Current Subjective Patient c/o severe BROCK. Reluctantly agrees to therapy. Mental Status Patient Orientation: Normal For Age Attachments: Oxygen, Colbert Catheter, IV Transfers SCALE: Activities may be completed with or without assistive devices. 1-Sdymvcfhiz-xxdfynd completes the activity by him/herself with no assistance from a helper. 5-Set-up or Clean-up Assistance-helper sets up or cleans up; patient completes activity. [place] assists only prior to or following the activity. 4-Supervision or Touching Assistance-helper provides verbal cues and/or touching/steadying and/or contact guard assistance as patient completes activity. Assistance may be provided throughout the activity or intermittently. 3-Partial/Moderate Assistance-helper does LESS THAN HALF the effort. [place] lifts, holds or supports trunk or limbs, but provides less than half the effort. 2-Substantial/Maximal Assistance-helper does MORE THAN HALF the effort. [place] lifts or holds trunk or limbs and provides more than half the effort. 2-Uebughqau-tvcpzm does ALL the effort. Patient does none of the effort to complete the activity. Or, the assistance of 2 or more helpers is required for the patient to complete the activity. If activity was not attempted, code reason: 7-Patient Refused. 9-Not Applicable-not attempted and the patient did not perform the activity before the current illness, exacerbation or injury. 10-Not Attempted due to Environmental Limitations-(lack of equipment, weather restraints, etc.). 88-Not Attempted due to Medical Conditions or Safety Concerns. Sit to Lying (QC): 6 Lying to Sitting/Side of Bed(Q: 6 Sit to Stand (QC): 4 Chair/Zpy-ab-Rmpgq Xfer(QC): 4 SBA for safety Assessment Patient up in recliner briefly with noted decrease in SAO2 to 83% with recovery over 1-2 minutes to >90%. Patient returned to bed independently due to fatigue and BROCK. RN is aware. Increase activity. PT Half-Way Goals Vp Data Goals PT Half-Way Goals Time Frame: Oct 04, 2020 Roll Left & Right (QC): 6 Sit to Lying (QC): 6 Lying-Sitting on Side/Bed(QC): 6 Sit to Stand (QC): 6 Chair/Mao-gc-Welur Xfer(QC): 6 Does the Patient Walk: Yes Walk 10 feet (QC): 4 Walk 50ft with 2 Turns (QC): 4 PT Plan Treatment/Plan Treatment Plan: Continue Plan of Care Treatment Plan: Bed Mobility, Education, Functional Activity Chantal, Functional Strength, Gait, Safety, Therapeutic Exercise, Transfers Treatment Duration: Oct 04, 2020 Frequency: 6 times per week Estimated Hrs Per Day: .25 hour per day Patient and/or Family Agrees t: Yes Time/GCodes Time In: 1000 Time Out: 1014 Total Billed Treatment Time: 14 Total Billed Treatment 1 visit FA 14 min SAIRA FLORES PT Sep 17, 2020 10:55
[2020-09-17] MEDS: HYDROCORTISONE 100 MG/2 ML (Solu-CORTEF) VIAL IV SCH ×2 (10:56→20:00)
[2020-09-17] MEDS: ENOXAPARIN 40 MG/0.4 ML (LOVENOX) SYR SC SCH ×2 (10:56→20:00)
[2020-09-17] MEDS: KETOROLAC 15 MG/ML VIAL IV PRN (10:57)
[2020-09-17] MEDS: ACETAMINOPHEN 325 MG TABLET PO PRN ×2 (10:57→20:00)
--- NOTE | 2020-09-17 16:49 | Tele-ICU Progress Note ---
Subjective Date Seen by a Provider: Sep 17, 2020 Time Seen by a Provider: 12:10 Sepsis Event Evaluation Height, Weight, BMI Height: '" Weight: lbs. oz. kg; 41.50 BMI Method: Exam Exam Patient acknowledged, consented, and participated in this virtual visit which was conducted using real time audio/video Vital Signs Date Time Temp Pulse Resp B/P (MAP) Pulse Ox O2 Delivery O2 Flow Rate FiO2 09/17/20 16:30 36.4 09/17/20 16:00 68 51 137/68 (91) 93 High Flow N/C 3.00 09/17/20 15:00 94 Nasal Cannula 2.00 09/17/20 12:38 56 09/17/20 12:00 37.0 09/17/20 12:00 56 27 133/65 (87) 92 High Flow N/C 3.00 09/17/20 11:00 67 57 142/80 (100) 93 High Flow N/C 3.00 09/17/20 10:00 59 14 150/72 (98) 92 High Flow N/C 3.00 09/17/20 09:00 63 21 146/74 (98) 92 High Flow N/C 3.00 09/17/20 08:00 96 High Flow N/C 4.00 09/17/20 08:00 83 26 142/80 (100) 93 High Flow N/C 3.00 09/17/20 07:45 36.1 09/17/20 07:21 92 Nasal Cannula 3.00 09/17/20 07:00 54 18 150/80 (103) 93 High Flow N/C 3.00 09/17/20 06:22 51 09/17/20 06:00 57 17 149/79 (102) 94 High Flow N/C 3.00 09/17/20 05:00 60 23 148/69 (95) 96 High Flow N/C 3.00 09/17/20 04:00 50 28 135/70 (114) 97 High Flow N/C 3.00 09/17/20 03:18 36.5 High Flow N/C 3.00 09/17/20 03:15 96 High Flow N/C 4.00 09/17/20 03:00 47 21 140/67 (92) 94 High Flow N/C 4.00 09/17/20 02:47 96 Nasal Cannula 4.00 09/17/20 02:00 45 137/71 (98) 96 High Flow N/C 4.00 09/17/20 01:00 55 28 128/64 (86) 96 High Flow N/C 4.00 09/17/20 01:00 55 09/17/20 00:00 51 30 131/73 (92) 94 High Flow N/C 4.00 09/16/20 23:43 36.4 High Flow N/C 4.00 09/16/20 23:40 94 High Flow N/C 4.00 09/16/20 23:00 48 30 131/72 (93) 95 High Flow N/C 6.00 09/16/20 22:00 49 22 126/57 (81) 93 High Flow N/C 6.00 09/16/20 21:01 High Flow N/C 6.00 09/16/20 21:00 57 19 139/77 (93) 93 High Flow N/C 8.00 09/16/20 20:47 36.6 09/16/20 20:45 100 Nasal Cannula 10.00 09/16/20 20:30 High Flow N/C 8.00 09/16/20 20:00 57 15 131/70 (84) 95 High Flow N/C 10.00 09/16/20 19:45 93 High Flow N/C 10.00 09/16/20 19:31 36.5 High Flow N/C 10.00 09/16/20 19:00 62 09/16/20 19:00 51 17 149/76 (111) 89 High Flow N/C 8.00 09/16/20 18:00 61 17 120/65 (83) 89 High Flow N/C 8.00 09/16/20 17:00 51 25 120/63 (82) 93 High Flow N/C 8.00 I & O 09/17/20 07:00 Intake Total 1040 ml Output Total 4135 ml Balance -3095 ml Height & Weight Height: '" Weight: lbs. oz. kg; 41.50 BMI Method: General Appearance: No Apparent Distress, WD/WN, Chronically ill, Other (Tyler and ashen) HEENT: PERRL/EOMI; No Pharynx Normal (Dry oral mucosa), No Moist Mucous Membranes Neck: Full Range of Motion, Normal Inspection, Non Tender, Supple Respiratory: No Accessory Muscle Use, No Respiratory Distress, Decreased Breath Sounds Cardiovascular: Regular Rate, Rhythm Capillary Refill: Less Than 3 Seconds Extremity: Normal Capillary Refill, Normal Inspection, No Pedal Edema Neurologic/Psychiatric: Alert, Oriented x3 Results Lab Laboratory Tests 09/15/20 17:16 09/16/20 03:00 09/17/20 03:25 Assessment/Plan Assessment/Plan Tele-ICU Physician , Progress Note ) Available chart/ vitals / labs / Images reviewed Video assessment done using teleICU camera, rest of exam as per RN Discussed with RN Events overnight : Afebrile hemodynamically stable, no pressors, I/O = pos 3L first 3 days , now neg 3500 Drips: LR As per RN exam Consultants: Hospital course: 09/10- covid + , in ER with fatigye - CT - no PE , RUL infiltrate - prescrived ABX 09/12 - in ER Fever 103.7, seizure-like activity , encephalopathy 09/16 - 10 L o2 09/17 - diarrhea A/P seizure-like activity , encephalopathy - CTH 09/12- maxillary/sphenoid sinusitis by corresponding CTs - +/- meningitis --> Tx with abx -CT with Left convexity subdural collection - as per radiology can be blood due to trauma - can not do MRI with spinal stimulator - ( tox screen negative ) - LP done 09/12 - opening pressire 23 , Cx neg, mildly elev protein with Nl glucose - reportedly on Tramadol - and flexeril- combo can contribute to confusion and Sz ( especially if taken extra ) Acute resp failure - increased need for O2 - ? Covid , VO with fluid resuscitation , atelectasis , PNA - lasix x1 on 09/16 : IMPROVED WITH nc 6L ->3 l Sepsis, Fever 103.7 - recent Covid + - with very high PCT of 80- bact infection is very likely , UA clear , 09/11 - CT - no PE , - RUL infiltrate+ maxillary/sphenoid sinusitis by corresponding CTs - +/- meningitis ( LP is not supportive ---covered with ABX- -Zosyn cefepime and vancomycin for empiric meningitis coverage ---stress dose of steroid given - TAPERING DOWN metabolic acidosis - lactate normalized h/o [place] dz - started on hydrocortisone , stress dose 100 q8 - will taper down again today Anemia - delutional H/o non-Hodgkin's lymphoma (s/p chemotherapy. Obesity Lines : midline Colbert: 09/12 - needs to come out OG: Nutrition: Analgesia: Anxiety/ delirium VTE Prophylaxis: lovenox Stress Ulcer Prophylaxis: Glycemic Control: Plans in collaboration with bedside consultants and IM MDs. Discussed with RN to reach out if any questions or concerns A total of 35 minutes of critical care time was devoted to this patient today, required to treat and/or prevent further deterioration of critical care condition ( as above) . JOSE E ZUNIGA MD Sep 17, 2020 16:49
[2020-09-17] MEDS: morphine INJ 4 MG/ML 1 ML (VIAL/SYRINGE) IVP PRN (20:00)
[2020-09-17] MEDS: KETOROLAC 30 MG/ML VIAL IVP PRN (22:09)
[2020-09-17] MEDS: CEFEPIME INJECTION 1,000 MG in WATER (STERILE) FOR INJECTION 10 ML IV SCH (23:32)
[2020-09-18] MEDS: RT-ALBUTEROL INHALER HFA (VENTOLIN HFA) 18 GM IH SCH ×4 (01:51→19:55)
[2020-09-18 04:17] LABS: BASOPHILS % (AUTO) 0 % (0-10); EOSINOPHILS % (AUTO) 0 % (0-10); HEMATOCRIT 33 % (35-52); HEMOGLOBIN 10.9 g/dL (11.5-16.0); LYMPHOCYTES # (AUTO) 0.5 10^3/uL (1.0-4.0); LYMPHOCYTES % (AUTO) 7 % (12-44); MEAN CORPUSCULAR HEMOGLOBIN 29 pg (25-34); MEAN CORPUSCULAR HGB CONC 33 g/dL (32-36); MEAN CORPUSCULAR VOLUME 87 fL (80-99); MEAN PLATELET VOLUME 10.3 fL (9.0-12.2); MONOCYTES # (AUTO) 0.4 10^3/uL (0.0-1.0); MONOCYTES % (AUTO) 5 % (0-12); NEUTROPHILS # (AUTO) 5.6 10^3/uL (1.8-7.8); NEUTROPHILS % (AUTO) 80 % (42-75); PLATELET COUNT 331 10^3/uL (130-400)
[2020-09-18 04:24] LABS: ALBUMIN 2.8 GM/DL (3.2-4.5); POTASSIUM 3.5 MMOL/L (3.6-5.0)
[2020-09-18 04:25] LABS: CALCIUM 8.5 MG/DL (8.5-10.1)
[2020-09-18 04:27] LABS: TOTAL PROTEIN 5.6 GM/DL (6.4-8.2)
[2020-09-18 04:28] LABS: BILIRUBIN,TOTAL 0.4 MG/DL (0.1-1.0)
[2020-09-18 04:30] LABS: CREATININE SERUM 0.63 MG/DL (0.60-1.30)
[2020-09-18] MEDS: inSUlin ASPART (NovoLOG) 1 UNIT/0.01 ML (CHARGE PER UNIT) SC SCH ×4 (04:33→22:19)
--- NOTE | 2020-09-18 05:30 | Progress Note - Hospitalist ---
Subjective HPI/CC On Admission Date Seen by Provider: Sep 18, 2020 Time Seen by Provider: 11:00 Chief complaint: Meningitis History of present illness: This is a 60-year-old white female clinic patient of [facility] who presented yesterday with COVID-19 symptoms and was discharged home in improved condition but she came back worse with altered mental status. Patient was found to have findings consistent with encephalitis COVID-19 infection so she was placed on broad-spectrum antibiotics per protocol aggressive IV fluids placed in the ICU for aggressive management. Patient appears to be very dehydrated she is alert but extremely ill mendez and ashen. Subjective/Events-last exam Pt doing okay except for headache Pain medication maintained Will increase her fluid intake Appears to be chronically ill Very debilitated may need long term Review of Systems General: Fatigue, Malaise HEENT: Head Aches Neurological: Weakness Objective Exam Vital Signs Vital Signs Date Time Temp Pulse Resp B/P (MAP) Pulse Ox O2 Delivery O2 Flow Rate FiO2 09/18/20 19:49 36.7 69 20 126/83 (97) 90 High Flow N/C 5.00 09/13/20 16:33 1 Capillary Refill : Less Than 3 Seconds General Appearance: No Apparent Distress, WD/WN, Chronically ill Respiratory: No Accessory Muscle Use, No Respiratory Distress, Decreased Breath Sounds Cardiovascular: Regular Rate, Rhythm Neurologic/Psychiatric: Alert, Oriented x3, Depressed Affect Results/Procedures Lab Laboratory Tests 09/18/20 04:10 Patient resulted labs reviewed. Assessment/Plan Assessment and Plan Assess & Plan/Chief Complaint Assessment: Meningitis COVID-19 pneumonia Sepsis Hypoxia Smoker Hypothyroidism Plan: Aggressive treatment IV fluids Monitor closely 09/13/2020: Supportive care IV antibiotics Monitor closely 09/14/2020: IV fluids IV antibiotics 09/15/2020: Supportive care Stay in ICU 09/16/2020: Hopefully transfer to floor Monitor closely 09/16/2020: Transfer to fourth floor Supportive care IV antibiotics 09/17/2020: Supportive care Lovenox Antibiotics 09/18/2020: Supportive care Headache management Critical Care Critically Ill Patient Diagnosis/Problems Diagnosis/Problems (1) Meningitis Status: Acute (2) COVID-19 Status: Acute (3) Acute respiratory failure with hypoxemia Status: Acute (4) Septic shock Status: Acute GALILEA ELIZABETH DO Sep 18, 2020 05:30
[2020-09-18] MEDS: CEFEPIME INJECTION 1,000 MG in WATER (STERILE) FOR INJECTION 10 ML IV SCH ×4 (06:09→23:26)
--- NOTE | 2020-09-18 08:18 | Diagnostic Imaging Report ---
INDICATION: Covid pneumonia Upright portable chest shows normal heart size and vascularity. There has been partial clearing of the bilateral infiltrates since the 09/16/2020 study. There is no effusion or pneumothorax. IMPRESSION: Improving bilateral infiltrates. Dictated by: Dictated on workstation # [id number]
[2020-09-18] MEDS: HYDROCORTISONE 20 MG (CORTEF) TAB PO SCH ×2 (09:31→19:56)
[2020-09-18] MEDS: ENOXAPARIN 40 MG/0.4 ML (LOVENOX) SYR SC SCH ×2 (09:32→19:55)
[2020-09-18] MEDS: morphine INJ 4 MG/ML 1 ML (VIAL/SYRINGE) IVP PRN ×2 (09:36→16:57)
--- NOTE | 2020-09-18 11:38 | Physical Therapy Progress Note ---
Therapy Progress Note Patient on Hold per RN due to severe BROCK. Physician aware. Will attempt in a.maris. SAIRA FLORES PT Sep 18, 2020 11:38
--- NOTE | 2020-09-18 12:28 | Pulmonary Progress Note ---
Subjective Date Seen by a Provider: Sep 18, 2020 Time Seen by a Provider: 12:27 Subjective/Events-last exam no major events Sepsis Event Evaluation Height, Weight, BMI Height: '" Weight: lbs. oz. kg; 41.50 BMI Method: Exam Exam Patient acknowledged, consented, and participated in this virtual visit which was conducted using real time audio/video Vital Signs Date Time Temp Pulse Resp B/P (MAP) Pulse Ox O2 Delivery O2 Flow Rate FiO2 09/18/20 11:18 36.6 62 20 155/77 (103) 90 High Flow N/C 6.00 09/18/20 08:58 92 High Flow N/C 6.00 09/18/20 08:20 37.1 65 20 121/80 (94) 91 High Flow N/C 6.00 09/18/20 08:00 96 High Flow N/C 6.00 09/18/20 04:17 36.4 75 20 175/82 (113) 98 High Flow N/C 8.00 09/18/20 01:51 93 Nasal Cannula 2.00 09/17/20 23:50 92 High Flow N/C 10.00 09/17/20 23:41 36.4 70 18 133/67 (89) 90 High Flow N/C 8.00 09/17/20 21:33 93 Nasal Cannula 2.00 09/17/20 20:00 96 High Flow N/C 4.00 09/17/20 19:11 37.0 76 18 163/85 (111) 90 High Flow N/C 3.00 09/17/20 18:00 55 17 146/81 (102) 96 High Flow N/C 3.00 09/17/20 17:00 55 16 141/76 (97) 94 High Flow N/C 3.00 09/17/20 16:30 36.4 09/17/20 16:00 68 51 137/68 (91) 93 High Flow N/C 3.00 09/17/20 15:00 94 Nasal Cannula 2.00 09/17/20 12:38 56 I & O 09/18/20 07:00 Intake Total 940 ml Output Total 950 ml Balance -10 ml Height & Weight Height: '" Weight: lbs. oz. kg; 41.50 BMI Method: General Appearance: No Apparent Distress, WD/WN, Chronically ill, Obese HEENT: PERRL/EOMI; No Pharynx Normal (Dry oral mucosa), No Moist Mucous Membranes Neck: Full Range of Motion, Normal Inspection, Non Tender, Supple Respiratory: No Accessory Muscle Use, No Respiratory Distress, Crackles, Decreased Breath Sounds, Rhonci Cardiovascular: Regular Rate, Rhythm Capillary Refill: Less Than 3 Seconds Extremity: Normal Capillary Refill, Normal Inspection, No Pedal Edema Neurologic/Psychiatric: Alert, Oriented x3, Depressed Affect Results Lab Laboratory Tests 09/17/20 03:25 09/18/20 04:10 Assessment/Plan Assessment/Plan Acute hypoxemic resp failure -o2 weaned 6l o2 -lovenox/ steroids -check d dimer hemoptysis: to be observed/ cxray improved FLORIDALMA ALBA MD Sep 18, 2020 12:28
--- NOTE | 2020-09-18 12:53 | Occupational Ther Daily Note ---
OT Current Status-Daily Note Subjective Pt. reports 10/10 pain in head with headache. Nursing notified. Will give pain medication. ADL-Treatment Therapy Code Descriptions/Definitions Functional [place] Measure: 0=Not Assessed/NA 4=Minimal Assistance 1=Total Assistance 5=Supervision or Setup 2=Maximal Assistance 6=Modified [place] 3=Moderate Assistance 7=Complete IndependenceSCALE: Activities may be completed with or without assistive devices. 9-Bjuoyvomal-szobbnn completes the activity by him/herself with no assistance from a helper. 5-Set-up or Clean-up Assistance-helper sets up or cleans up; patient completes activity. [place] assists only prior to or following the activity. 4-Supervision or Touching Assistance-helper provides verbal cues and/or touching/steadying and/or contact guard assistance as patient completes activity. Assistance may be provided throughout the activity or intermittently. 3-Partial/Moderate Assistance-helper does LESS THAN HALF the effort. [place] lifts, holds or supports trunk or limbs, but provides less than half the effort. 2-Substantial/Maximal Assistance-helper does MORE THAN HALF the effort. [place] lifts or holds trunk or limbs and provides more than half the effort. 2-Wrsvxfyke-ahtmgb does ALL the effort. Patient does none of the effort to complete the activity. Or, the assistance of 2 or more helpers is required for the patient to complete the activity. If activity was not attempted, code reason: 7-Patient Refused. 9-Not Applicable-not attempted and the patient did not perform the activity before the current illness, exacerbation or injury. 10-Not Attempted due to Environmental Limitations-(lack of equipment, weather restraints, etc.). 88-Not Attempted due to Medical Conditions or Safety Concerns. Other Treatment Pt. supine in bed with eyes closed. She does acknowledge OT, and opens eyes occasionally. Pt. in visible pain, but does attempt to participate to best of ability. Pt. on high oxygen flow, with sat monitor reading 90% continuously. OT gives pt. several sips of water. Pt. declines OOB activity, or even rolling on side. She is issued red theraband, and is able to complete 5 pectoral stretch exercises, at 50% length. Sats drop to 86%. Pt. encouraged to breathe deep and given rest break until they come back to 90%. Pt. given hand therapy sponge and squeezes several times. Oxygen saturations begin to drop again. OT halts activity. OT does encourage pt. to transfer to side, switch position for comfort/pressure relief. Pt. does not want to. OT offers cold washcloth for forehead, pt. does put on head. Requests something for pain. All needs met and nursing notified of pt's oxygen saturations with movement and pain level. Education OT Patient Education: Correct positioning, Exercise program Teaching Recipient: Patient OT Short Term Goals Short Term Goals Time Frame: Sep 23, 2020 Eatin Oral hygiene: 4 Toileting hygiene: 3 Upper body dressin Lower body dressin Putting on/taking off footwear: 3 OT Correction Goals Correction Goals Time Frame: Oct 07, 2020 Eating (QC): 6 Oral Hygiene (QC): 6 Toileting Hygiene (QC): 4 Shower/Bathe Self (QC): 4 Upper Body Dressing (QC): 5 Lower Body Dressing (QC): 4 On/Off Footwear (QC): 4 Additional Goals: 1-Demonstrate ADL Tasks, 2-Verbalize Understanding, 3-ImproveStrength/Chantal 1=Demonstrate adherence to instructed precautions during ADL tasks. 2=Patient will verbalize/demonstrate understanding of assistive devices/modifications for ADL. 3=Patient will improve strength/tolerance for activity to enable patient to perform ADL's. OT Education/Plan Problem List/Assessment Assessment: Decreased Activ Tolerance Discharge Recommendations Plan/Recommendations: Continue POC Treatment Plan/Plan of Care Treatment,Training & Education: Yes Patient would benefit from OT for education, treatment and training to promote independence in ADL's, mobility, safety and/or upper extremity function for ADL's. Plan of Care: ADL Retraining, Functional Mobility, UE Funct Exercise/Act Treatment Duration: Oct 07, 2020 Frequency: 5 times per week Estimated Hrs Per Day: .25 hour per day Agreement: Yes Rehab Potential: Fair Time/GCodes Start Time: 10:45 Stop Time: 11:00 Total Time Billed (hr/min): 15 Billed Treatment Time 1, Ex MICKGÓMEZISAIAS OT Sep 18, 2020 12:53
[2020-09-18] MEDS: KETOROLAC 30 MG/ML VIAL IVP PRN (19:56)
--- NOTE | 2020-09-18 21:33 | Diagnostic Imaging Report ---
PROCEDURE: CT head w/o r/o stroke. TECHNIQUE: Multiple contiguous axial images were obtained through the brain without the use of intravenous contrast. Auto Exposure Controls were utilized during the CT exam to meet ALARA standards for radiation dose reduction. DATE: September 18, 2020. COMPARISON: CT head September 12, 2020. INDICATION: 60-year-old female, altered mental status. Right-sided weakness. FINDINGS: There is near complete opacification of left maxillary sinus with bubbly areas of internal lucency. There is also prominent opacification in the left sphenoid sinus with air-fluid level. There are air-fluid levels in the bilateral frontal sinuses as well as bilateral ethmoidal air cell opacification. The mastoid air cells and middle ears are well-aerated, bilaterally. There is abnormal low attenuation in the left frontal lobe on axial image 45 and adjacent sequential images as well as in the anterior aspect of the left frontal lobe. These areas are both an interval change since September 12, 2020. There is hyperdensity in the left subdural space adjacent to the anterior aspect of the left frontal lobe on axial image 40 measuring approximately 5.8 mm in thickness. This appears to extend towards the frontal sinuses. There is no particularly prominent mass effect. There is no midline shift. There is no hydrocephalus. IMPRESSION: 1. Extensive paranasal sinus opacification highly likely representing acute sinusitis. 2. Abnormally increased attenuation in the left subdural space adjacent to the anterior frontal lobe extending towards the paranasal sinuses which potentially could reflect a subdural empyema. Subdural hematoma would also be a differential consideration. There is note of abnormal gas in the left subdural space on prior CT head exam on September 12, 2020. Infectious etiology is favored. 3. New areas of abnormal low-attenuation in the left frontal lobe which potentially could relate to interval areas of infarct since September 12, 2020. 4. Further evaluation with MRI brain without and with intravenous contrast is recommended. Dictated by: Dictated on workstation # [id number]
[2020-09-18] MEDS ORDERED: IOHEXOL 350 MG/ML 100 ML (OMNIPAQUE 350) VIAL IV ONE (22:00)
[2020-09-18] MEDS ORDERED: HOLD METFORMIN - RECEIVED CONTRAST 20 ML VIAL IV SCH (22:00)
[2020-09-18] MEDS ORDERED: NS 100 ML (IVPB) BAG IV ONE (22:00)
[2020-09-18 22:24] LABS: BASOPHILS % (AUTO) 0 % (0-10); EOSINOPHILS # (AUTO) 0.2 10^3/uL (0.0-0.3); EOSINOPHILS % (AUTO) 2 % (0-10); HEMATOCRIT 34 % (35-52); HEMOGLOBIN 10.9 g/dL (11.5-16.0); LYMPHOCYTES # (AUTO) 0.9 10^3/uL (1.0-4.0); LYMPHOCYTES % (AUTO) 11 % (12-44); MEAN CORPUSCULAR HEMOGLOBIN 29 pg (25-34); MEAN CORPUSCULAR HGB CONC 32 g/dL (32-36); MEAN CORPUSCULAR VOLUME 89 fL (80-99); MEAN PLATELET VOLUME 9.8 fL (9.0-12.2); MONOCYTES # (AUTO) 0.8 10^3/uL (0.0-1.0); MONOCYTES % (AUTO) 9 % (0-12); NEUTROPHILS # (AUTO) 6.3 10^3/uL (1.8-7.8); NEUTROPHILS % (AUTO) 73 % (42-75); PLATELET COUNT 358 10^3/uL (130-400); WHITE BLOOD COUNT 8.6 10^3/uL (4.3-11.0)
[2020-09-18 22:48] LABS: ALBUMIN 2.7 GM/DL (3.2-4.5)
[2020-09-18 22:49] LABS: CALCIUM 8.4 MG/DL (8.5-10.1)
[2020-09-18 22:51] LABS: TOTAL PROTEIN 5.4 GM/DL (6.4-8.2)
[2020-09-18 22:52] LABS: BILIRUBIN,TOTAL 0.4 MG/DL (0.1-1.0)
[2020-09-18 22:55] LABS: CREATININE SERUM 0.65 MG/DL (0.60-1.30)
[2020-09-19] MEDS: RT-ALBUTEROL INHALER HFA (VENTOLIN HFA) 18 GM IH SCH ×4 (01:51→22:23)
[2020-09-19] MEDS: CEFEPIME INJECTION 1,000 MG in WATER (STERILE) FOR INJECTION 10 ML IV SCH ×4 (04:10→21:59)
[2020-09-19] MEDS: KETOROLAC 30 MG/ML VIAL IVP PRN ×2 (04:10→14:03)
[2020-09-19 04:41] LABS: BASOPHILS % (AUTO) 0 % (0-10); EOSINOPHILS # (AUTO) 0.2 10^3/uL (0.0-0.3); EOSINOPHILS % (AUTO) 2 % (0-10); HEMATOCRIT 35 % (35-52); HEMOGLOBIN 11.2 g/dL (11.5-16.0); LYMPHOCYTES # (AUTO) 0.7 10^3/uL (1.0-4.0); LYMPHOCYTES % (AUTO) 8 % (12-44); MEAN CORPUSCULAR HEMOGLOBIN 28 pg (25-34); MEAN CORPUSCULAR HGB CONC 32 g/dL (32-36); MEAN CORPUSCULAR VOLUME 88 fL (80-99); MONOCYTES # (AUTO) 0.7 10^3/uL (0.0-1.0); MONOCYTES % (AUTO) 8 % (0-12); NEUTROPHILS # (AUTO) 6.9 10^3/uL (1.8-7.8); NEUTROPHILS % (AUTO) 76 % (42-75); PLATELET COUNT 392 10^3/uL (130-400); WHITE BLOOD COUNT 9.2 10^3/uL (4.3-11.0)
[2020-09-19 04:55] LABS: ALBUMIN 2.9 GM/DL (3.2-4.5); POTASSIUM 3.4 MMOL/L (3.6-5.0)
[2020-09-19 04:57] LABS: CALCIUM 8.7 MG/DL (8.5-10.1)
[2020-09-19 04:58] LABS: TOTAL PROTEIN 5.8 GM/DL (6.4-8.2)
[2020-09-19 05:00] LABS: BILIRUBIN,TOTAL 0.6 MG/DL (0.1-1.0)
[2020-09-19 05:02] LABS: CREATININE SERUM 0.61 MG/DL (0.60-1.30)
[2020-09-19] MEDS: inSUlin ASPART (NovoLOG) 1 UNIT/0.01 ML (CHARGE PER UNIT) SC SCH ×4 (05:02→20:31)
--- NOTE | 2020-09-19 05:39 | Diagnostic Imaging Report ---
PROCEDURE: CT angiography of the head and CT angiography of the neck with and without contrast. TECHNIQUE: Contiguous noncontrast images were obtained from the skull base through the vertex. After intravenous contrast administration, helical CT angiography of the neck was performed. Source data was reformatted into 3D MIP projections. Delayed post contrast acquisition was also obtained. Auto Exposure Controls were utilized during the CT exam to meet ALARA standards for radiation dose reduction. INDICATION: Right-sided weakness. Covid positive. Concern for stroke. Comparison: CT head performed earlier the same date. FINDINGS: CTA Neck: The visualized portions of the aortic arch demonstrate no evidence of aneurysm or dissection. There is conventional branching pattern of the great vessels of the aorta. The brachiocephalic artery is normal in course and caliber. The right and left common carotid origins are unremarkable. The origin of the left subclavian artery is patent. The common carotid arteries and internal carotid arteries demonstrate a normal course and caliber without evidence of focal stenosis. The external carotid arteries are patent and unremarkable. The left vertebral artery is dominant. The origin of the right vertebral artery is seen and is unremarkable. The origin of the left vertebral artery is seen and is unremarkable. There is no focal stenosis seen within the neck. There is no dissection. The vertebral arteries are well visualized to up to the level of the basilar artery. The osseous structures of the cervical spine are unremarkable. Included views through the lung apices demonstrate bilateral patchy opacities. CTA brain: A small amount of atherosclerotic plaque is seen in the powers of the intracranial portions of the bilateral carotid arteries without significant stenosis. No stenosis is seen in the bilateral anterior, middle, and posterior cerebral arteries. No evidence of aneurysm the [place]. In the posterior circulation, both of the vertebral arteries demonstrate normal opacification. Both the right and left PICA arteries are identified. The basilar artery is normal in course and caliber. The terminal branch vessels including the superior cerebellar arteries unremarkable. IMPRESSION: 1. No stenosis or aneurysm in the [place]. No evidence of large vessel occlusion. 2. No stenosis or dissection the bilateral carotid and vertebral arteries. Agree with overnight report. Dictated by: Dictated on workstation # [id number]
[2020-09-19] MEDS: HYDROCORTISONE 20 MG (CORTEF) TAB PO SCH ×2 (08:17→19:46)
[2020-09-19] MEDS: ENOXAPARIN 40 MG/0.4 ML (LOVENOX) SYR SC SCH ×2 (08:18→19:46)
--- NOTE | 2020-09-19 09:59 | Physical Therapy Progress Note ---
Therapy Progress Note Patient on Hold per RN secondary to decline in status. PT will continue to check patient status and resume when patient is medically stable and able to participate. Patient continues to have 10/10 BROCK per RN. SAIRA FLORES PT Sep 19, 2020 09:58
--- NOTE | 2020-09-19 13:57 | Occ Therapy Progress Note ---
Therapy Progress Note Per PT report. Patient on Hold per RN secondary to decline in status. OT will continue to check patient status and resume when patient is medically stable and able to participate. Patient continues to have 10/10 BROCK per RN. ORION MONTES Sep 19, 2020 13:57
--- NOTE | 2020-09-19 16:52 | Progress Note - Hospitalist ---
Subjective HPI/CC On Admission Date Seen by Provider: Sep 19, 2020 Time Seen by Provider: 09:55 Chief complaint: Meningitis History of present illness: This is a 60-year-old white female clinic patient of [facility] who presented yesterday with COVID-19 symptoms and was discharged home in improved condition but she came back worse with altered mental status. Patient was found to have findings consistent with encephalitis COVID-19 infection so she was placed on broad-spectrum antibiotics per protocol aggressive IV fluids placed in the ICU for aggressive management. Patient appears to be very dehydrated she is alert but extremely ill mendez and ashen. Subjective/Events-last exam She is unable to speak. She is following commands and alert. Focused Exam Lactate Level 09/18/20 22:15: Lactic Acid Level 1.22 Objective Exam Vital Signs Vital Signs Date Time Temp Pulse Resp B/P (MAP) Pulse Ox O2 Delivery O2 Flow Rate FiO2 09/19/20 15:24 94 High Flow N/C 6.00 09/19/20 15:05 36.6 87 18 118/72 (87) 09/13/20 16:33 1 Capillary Refill : Less Than 3 Seconds General Appearance: No Apparent Distress, Chronically ill, Obese HEENT: Pharynx Normal, Other (EOMI) Respiratory: Lungs Clear, Normal Breath Sounds, No Respiratory Distress Cardiovascular: Regular Rate, Rhythm, No Murmur Gastrointestinal: Normal Bowel Sounds, Soft; No Distended Extremity: Normal Inspection, Non Tender, Pedal Edema Neurologic/Psychiatric: Alert, Aphasia, Motor Weakness (right sided) Skin: Normal Color, Warm/Dry Results/Procedures Lab Laboratory Tests 09/18/20 22:15 09/19/20 04:20 Patient resulted labs reviewed. Imaging: Reviewed Imaging Films, Reviewed Imaging Report Assessment/Plan Assessment and Plan Assess & Plan/Chief Complaint Acute ischemic stroke Right sided weakness and aphasia developed overnight [facility] Neurology recommended against tPA CT Head with new frontal infarcts Aseptic meningitis Subdural empyema Lumbar puncture concerning for meningitis CSF culture with no growth CT Head with possible subdural empyema Unable to obtain MRI due to neurostimulator Awaiting call from [facility] Neurosurgery regarding possible subdural empyema and recommendations Acute respiratory failure due to COVID-19 Bacterial pneumonia Steroids Cefepime Supplemental oxygen Non-Hodgkin's Lymphoma Clinically significant, no acute management needs Poor prognosis Goals of care discussion Discussed poor prognosis with daughter DNR/DNI Await [facility] Neurosurgery recommendations Likely transition to comfort measures if no surgical options available DVT prophylaxis: Lovenox Critical Care Critically Ill Patient Diagnosis/Problems Diagnosis/Problems (1) Acute respiratory failure with hypoxemia Status: Acute (2) COVID-19 Status: Acute (3) Aseptic meningitis Status: Acute (4) NHL (non-Hodgkin's lymphoma) Status: Chronic (5) Subdural empyema Status: Acute (6) Acute ischemic stroke Status: Acute (7) Morbid obesity Status: Chronic (8) Counseling regarding goals of care Status: Acute (9) Poor prognosis Status: Acute RUBÉN GONZALEZ MD Sep 19, 2020 16:52
[2020-09-20] MEDS: KETOROLAC 30 MG/ML VIAL IVP PRN (00:02)
[2020-09-20] MEDS: RT-ALBUTEROL INHALER HFA (VENTOLIN HFA) 18 GM IH SCH ×4 (03:26→21:20)
[2020-09-20] MEDS: CEFEPIME INJECTION 1,000 MG in WATER (STERILE) FOR INJECTION 10 ML IV SCH ×3 (04:48→09:11)
[2020-09-20] MEDS: ACETAMINOPHEN 325 MG TABLET PO PRN ×2 (04:49→21:45)
[2020-09-20] MEDS: inSUlin ASPART (NovoLOG) 1 UNIT/0.01 ML (CHARGE PER UNIT) SC SCH ×4 (04:53→21:12)
--- NOTE | 2020-09-20 07:23 | Physical Therapy Progress Note ---
Therapy Progress Note Patient remains on Hold due to decline in medical status. SAIRA FLORES PT Sep 20, 2020 07:23
[2020-09-20 08:14] LABS: BASOPHILS % (AUTO) 0 % (0-10); EOSINOPHILS # (AUTO) 0.1 10^3/uL (0.0-0.3); EOSINOPHILS % (AUTO) 1 % (0-10); HEMATOCRIT 32 % (35-52); HEMOGLOBIN 10.6 g/dL (11.5-16.0); LYMPHOCYTES # (AUTO) 0.6 10^3/uL (1.0-4.0); LYMPHOCYTES % (AUTO) 6 % (12-44); MEAN CORPUSCULAR HEMOGLOBIN 29 pg (25-34); MEAN CORPUSCULAR HGB CONC 33 g/dL (32-36); MEAN CORPUSCULAR VOLUME 88 fL (80-99); MEAN PLATELET VOLUME 10.1 fL (9.0-12.2); MONOCYTES # (AUTO) 0.9 10^3/uL (0.0-1.0); MONOCYTES % (AUTO) 8 % (0-12); NEUTROPHILS # (AUTO) 8.5 10^3/uL (1.8-7.8); NEUTROPHILS % (AUTO) 81 % (42-75); PLATELET COUNT 342 10^3/uL (130-400); WHITE BLOOD COUNT 10.6 10^3/uL (4.3-11.0)
[2020-09-20 08:41] LABS: CALCIUM 8.6 MG/DL (8.5-10.1); CREATININE SERUM 0.57 MG/DL (0.60-1.30); POTASSIUM 3.6 MMOL/L (3.6-5.0)
[2020-09-20] MEDS: ENOXAPARIN 40 MG/0.4 ML (LOVENOX) SYR SC SCH ×2 (09:07→09:10)
--- NOTE | 2020-09-20 09:07 | Diagnostic Imaging Report ---
PROCEDURE: CT head without contrast. TECHNIQUE: Multiple contiguous axial images were obtained through the brain without the use of intravenous contrast. Auto Exposure Controls were utilized during the CT exam to meet ALARA standards for radiation dose reduction. INDICATION: Cerebrovascular accident and abnormal CT scan of head. Since study of 09/18/2020, there has been adverse change with significant increase in hyperdense material along the left frontal convexity. There is associated underlying edema within the left frontal lobe which is also increased when compared to previous study. Hyperdensity in the left frontal region deep to the frontal sinus now measures approximately 1.8 cm in thickness and 4.5 cm in the transverse plane with additional posterior lateral extension along the left frontal convexity which may be subarachnoid in location. Fluid and mural thickening is again noted throughout the frontal sinuses as well as multiple bilateral ethmoid air cells and left maxillary sinus. There is also near complete opacification of the sphenoid sinuses. Focal region of bone destruction is not identified. Flattening of the posterior left parietal bone is not significantly changed. IMPRESSION: Worsening hyperdense material in the left frontal subdural and subarachnoid spaces which appears to also extend into left frontal lobe with significant inflammation and/or edema throughout the left frontal white matter. Again, this could be related to empyema secondary to extension of sinusitis and underlying cerebritis. A component of hemorrhage and cerebral ischemia cannot be excluded and clinical correlation would be of use. Dictated by: Dictated on workstation # [id number]
[2020-09-20] MEDS: HYDROCORTISONE 20 MG (CORTEF) TAB PO SCH ×2 (09:08→19:40)
[2020-09-20] MEDS ORDERED: VANCOMYCIN INJECTION 2,000 MG in NS IV 500 ML 500 ML IV NR (10:30)
--- NOTE | 2020-09-20 13:16 | Progress Note - Hospitalist ---
Subjective HPI/CC On Admission Date Seen by Provider: Sep 20, 2020 Time Seen by Provider: 08:05 Chief complaint: Meningitis History of present illness: This is a 60-year-old white female clinic patient of [facility] who presented yesterday with COVID-19 symptoms and was discharged home in improved condition but she came back worse with altered mental status. Patient was found to have findings consistent with encephalitis COVID-19 infection so she was placed on broad-spectrum antibiotics per protocol aggressive IV fluids placed in the ICU for aggressive management. Patient appears to be very dehydrated she is alert but extremely ill mendez and ashen. Subjective/Events-last exam She remains aphasic. She is able to follow commands. She still has right sided weakness, more in her upper extremity. Focused Exam Lactate Level 09/18/20 22:15: Lactic Acid Level 1.22 Objective Exam Vital Signs Vital Signs Date Time Temp Pulse Resp B/P (MAP) Pulse Ox O2 Delivery O2 Flow Rate FiO2 09/20/20 11:06 36.1 80 22 109/72 (84) 95 Vapotherm 40.00 90.00 09/20/20 08:22 50 Capillary Refill : Less Than 3 Seconds General Appearance: No Apparent Distress, Obese HEENT: PERRL/EOMI, Moist Mucous Membranes Respiratory: Lungs Clear, Normal Breath Sounds, No Respiratory Distress Cardiovascular: Regular Rate, Rhythm, No Edema, No Murmur Gastrointestinal: Normal Bowel Sounds, Non Tender, Soft Extremity: Normal Inspection, Non Tender, No Pedal Edema Neurologic/Psychiatric: Alert, Aphasia, Motor Weakness Skin: Normal Color, Warm/Dry Results/Procedures Lab Laboratory Tests 09/20/20 07:49 Patient resulted labs reviewed. Imaging: Reviewed Imaging Films, Reviewed Imaging Report, Discussed Imaging with Radiologist Assessment/Plan Assessment and Plan Assess & Plan/Chief Complaint Aseptic meningitis Subdural empyema Acute ischemic stroke Lumbar puncture concerning for meningitis CSF culture with no growth CT Head with possible subdural empyema, repeat worsening Transition to Vancomycin and Rocephin Unable to obtain MRI due to neurostimulator Attempting transfer for neurosurgery evaluation Declined by Gorge NEWBY, and Silva Cody due to bed availability Acute respiratory failure due to COVID-19 Bacterial pneumonia Steroids Vanc and Rocephin Supplemental oxygen Non-Hodgkin's Lymphoma Clinically significant, no acute management needs Poor prognosis Goals of care discussion Discussed poor prognosis with daughter DNR/DNI Continue antibiotics, attempt transfer DVT prophylaxis: held due to possible subdural hematoma Critical Care Critically Ill Patient Diagnosis/Problems Diagnosis/Problems (1) Acute respiratory failure with hypoxemia Status: Acute (2) COVID-19 Status: Acute (3) Aseptic meningitis Status: Acute (4) NHL (non-Hodgkin's lymphoma) Status: Chronic (5) Subdural empyema Status: Acute (6) Acute ischemic stroke Status: Acute (7) Morbid obesity Status: Chronic (8) Counseling regarding goals of care Status: Acute (9) Poor prognosis Status: Acute RUBÉN GONZALEZ MD Sep 20, 2020 13:16
[2020-09-20] MEDS ORDERED: VANCOMYCIN 1,750 MG/NS 500 ML IVPB IV SCH ×2 (22:30)
[2020-09-21] MEDS: RT-ALBUTEROL INHALER HFA (VENTOLIN HFA) 18 GM IH SCH (04:21)
[2020-09-21] MEDS: inSUlin ASPART (NovoLOG) 1 UNIT/0.01 ML (CHARGE PER UNIT) SC SCH (05:10)
[2020-09-21] MEDS ORDERED: TROUGH ORDER-PHARMACY XX NR (21:30)
== END 2020-09-21 09:05 | disposition short-term general hospital (02) | DRG 871 ==
LOC: EDUNIT# 07:17 → ER 07:18 → ICU 09:00 → 4TH 09-17 18:18
PROVIDERS: ADMIT Internal Medicine; ATTEND Internal Medicine
PROC: 009U3ZX Drainage of Spinal Canal, Percutaneous Approach, Diagnostic (ICD-10-PCS; principal; 2020-09-12)
DX: A41.9 Sepsis, unspecified organism (principal); U07.1 COVID-19; J12.82 Pneumonia due to coronavirus disease 2019; R65.21 Severe sepsis with septic shock; J96.01 Acute respiratory failure with hypoxia; I63.9 Cerebral infarction, unspecified; G06.0 Intracranial abscess and granuloma; G03.0 Nonpyogenic meningitis; C85.90 Non-Hodgkin lymphoma, unspecified, unspecified site; G93.40 Encephalopathy, unspecified; E87.2 Acidosis; Z68.41 Body mass index [BMI] 40.0-44.9, adult; A85.8 Other specified viral encephalitis; G81.91 Hemiplegia, unspecified affecting right dominant side; R04.2 Hemoptysis; E27.1 Primary adrenocortical insufficiency; Z66 Do not resuscitate; J44.9 Chronic obstructive pulmonary disease, unspecified; E66.9 Obesity, unspecified; R47.81 Slurred speech; R47.1 Dysarthria and anarthria; E11.9 Type 2 diabetes mellitus without complications; E66.01 Morbid (severe) obesity due to excess calories; F31.9 Bipolar disorder, unspecified; M79.7 Fibromyalgia; F17.210 Nicotine dependence, cigarettes, uncomplicated; K21.9 Gastro-esophageal reflux disease without esophagitis; E03.9 Hypothyroidism, unspecified; F41.9 Anxiety disorder, unspecified; Z96.642 Presence of left artificial hip joint; Z88.2 Allergy status to sulfonamides; Z86.19 Personal history of other infectious and parasitic diseases; Z98.84 Bariatric surgery status; Z73.0 Burn-out
CPT/HCPCS: 36410; 36415; 51702; 70450; 70496; 70498; 71045; 76937; 80048; 80053; 80076; 80306; 81000; 82805; 82945; 82947; 83605; 83735; 83880; 84100; 84145; 84157; 85007; 85025; 85027; 85379; 85610; 85652; 85730; 86141; 87040; 87070; 87088; 87205; 87324; 87449; 89051; 93005; 94640; 94760; 96361; 96365; 96366; 96375; 99291

== ENCOUNTER 2020-12-01 11:06 | Emergency (ER) | payer MEDICARE, MEDICAID ==
[~2020-12-01] VITALS: Ht 165 cm; Wt 103.0 kg
--- OUTSIDE RECORDS SUMMARY | 2020-12-01 11:11 | XMS REPORT | Clinical Summary ---
Author Author [facility] Organization 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 If you d o not see the information that you expected, contact Release of Information in [facility] [employer] Information Management department at [phone] for further assistan ce in locating additional records.[facility] Allergies Not on File Medications Not on file Active Problems Not on file Encounters Care Team Description Date Type Specialty 09/20/2020 Hospital Radiology Encounter 09/20/2020 Travel 09/18/2020 Hospital Radiology Encounter 09/18/2020 Hospital Radiology Encounter 09/18/2020 Hospital Radiology Encounter 09/16/2020 Hospital Radiology Encounter 09/15/2020 Hospital Radiology Encounter 09/13/2020 Hospital Radiology Encounter 09/12/2020 Hospital Radiology Encounter 09/12/2020 Hospital Radiology Encounter 09/11/2020 Hospital Radiology Encounter from Last 3 Months Social History Date Tobacco Use Types Packs/Day Years Used Never Assessed Sex Assigned at Date Recorded Not on file Last Filed Vital Signs Not on file Plan of Treatment Health Maintenance Due Date Last Done Comments MEDICARE ANNUAL WELLNESS 1961 VISIT HIV SCREENING 1976 DTAP/TDAP VACCINES (1 - 09/07/1979 Tdap) HEPATITIS C SCREENING 09/07/1979 PHYSICAL (COMPREHENSIVE) 09/07/1979 EXAM CERVICAL CANCER SCREENING 1982 BREAST CANCER SCREENING 2001 COLORECTAL CANCER 09/07/2011 SCREENING SHINGLES RECOMBINANT 09/07/2011 VACCINE (1 of 2) INFLUENZA VACCINE 09/21/2020 Procedures Comments Procedure Name Priority Date/Time Associated Diag nosis CT HEAD EXTERNAL IMAGING Routine 09/20/2020 12:00 AM CDT CTA HEAD EXTERNAL IMAGING Routine 09/18/2020 12:10 AM CDT GENERAL RAD CHEST Routine 09/18/2020 EXTERNAL IMAGING 12:[address] HEAD EXTERNAL IMAGING Routine 09/18/2020 12:00 AM CDT GENERAL RAD CHEST Routine 09/16/2020 EXTERNAL IMAGING 12:00 AM CDT GENERAL RAD CHEST Routine 09/15/2020 EXTERNAL IMAGING 12:00 AM CDT GENERAL RAD CHEST Routine 09/13/2020 EXTERNAL IMAGING 12:00 AM CDT GENERAL RAD CHEST Routine 09/12/2020 EXTERNAL IMAGING 12:[address] HEAD EXTERNAL IMAGING Routine 09/12/2020 12:[address] CHEST EXTERNAL IMAGING Routine 09/11/2020 12:00 AM CDT from Last 3 Months Results * CT HEAD EXTERNAL IMAGING (09/20/2020 12:00 AM CDT) Only the most recent of 3 results within the time period is included. Specimen Narrative Performed At This order has been auto finalized and does not contain a result. * CTA HEAD EXTERNAL IMAGING (09/18/2020 12:10 AM CDT) Specimen Narrative Performed At This order has been auto finalized and does not contain a result. * GENERAL RAD CHEST EXTERNAL IMAGING (09/18/2020 12:05 AM CDT) Only the most recent of 5 results within the time period is included. Specimen Narrative Performed At This order has been auto finalized and does not contain a result. * CT CHEST EXTERNAL IMAGING (09/11/2020 12:00 AM CDT) Specimen Narrative Performed At This order has been auto finalized and does not contain a result. from Last 3 Months Insurance Type Payer Benefit Subscriber ID Effective Phone Address Plan / Dates Group Medicare [facility] MEDICARE [facility] [id number] 2020-P MEDICARE resent [facility] T Medicaid [facility] MEDICAID [facility] [id number] 2020-P [facility] Advance Directives Patient Director Of Student Life Explanation Type Date Recorded Advance Directive/DPOA
--- NOTE | 2020-12-01 11:59 | Diagnostic Imaging Report ---
Clinical indications: Non-activation stroke. Patient has headache. Patient had 2 brain surgeries from a stroke in August through September. Patient has had headache since today, worse than before. Exam: Axial CT scan of the brain without IV contrast with coronal and sagittal reformatted images. Auto Exposure Controls were utilized during the CT exam to meet ALARA standards for radiation dose reduction. Comparison: Head CT without contrast dated 09/20/2020.. Findings: There is no evidence of interval acute cerebral infarct, intracranial hemorrhage, or gross mass effect. There are interval posterior changes with left frontal craniotomy and development of low-density/encephalomalacia the left frontal region. There is consolidation of the frontal sinus operative area and extending to the left frontal recess/anterior left ethmoid sinus region. There is interval resolution of previously seen intra-cranial blood in the left frontal region. Previously seen small area of low density involving the posterior left frontal lobe region has resolved. There is no brain herniation or midline shift. There is interval slight ex vacuo dilation of the anterior aspect of left lateral ventricle. There is no hydrocephalus. The remainder of the brain parenchyma is unremarkable. Besides postop changes in left frontal skull craniotomy, there is no significant abnormality involving the extracranial soft tissue and orbits. Mastoid air cells are clear. IMPRESSION: 1: There is no CT evidence of acute intracranial process. There is no intracranial hemorrhage or CT evidence of acute cerebral infarct. There is no dense vessel sign seen. 2: There is interval postoperative changes with left frontal craniotomy and progression of encephalomalacia involving left frontal lobe. 3: Interval resolution of previously seen intracranial blood. 4: Interval resolution of the small area of low density involving the posterior left frontal lobe. Results of this report discussed with Dr. Chow via the telephone on 12/01/2020 at 1150 hours. Dictated by: Dictated on workstation # [id number]
[2020-12-01 12:06] LABS: BASOPHILS % (AUTO) 1 % (0-10); EOSINOPHILS # (AUTO) 0.2 10^3/uL (0.0-0.3); EOSINOPHILS % (AUTO) 3 % (0-10); HEMATOCRIT 39 % (35-52); HEMOGLOBIN 12.6 g/dL (11.5-16.0); LYMPHOCYTES # (AUTO) 1.3 10^3/uL (1.0-4.0); LYMPHOCYTES % (AUTO) 22 % (12-44); MEAN CORPUSCULAR HEMOGLOBIN 28 pg (25-34); MEAN CORPUSCULAR HGB CONC 32 g/dL (32-36); MEAN CORPUSCULAR VOLUME 88 fL (80-99); MONOCYTES # (AUTO) 0.5 10^3/uL (0.0-1.0); MONOCYTES % (AUTO) 8 % (0-12); NEUTROPHILS # (AUTO) 3.9 10^3/uL (1.8-7.8); NEUTROPHILS % (AUTO) 67 % (42-75); PLATELET COUNT 328 10^3/uL (130-400); WHITE BLOOD COUNT 5.9 10^3/uL (4.3-11.0)
[2020-12-01 12:17] LABS: ALBUMIN 3.9 GM/DL (3.2-4.5); POTASSIUM 3.5 MMOL/L (3.6-5.0)
[2020-12-01 12:18] LABS: CALCIUM 9.6 MG/DL (8.5-10.1)
[2020-12-01 12:20] LABS: TOTAL PROTEIN 6.8 GM/DL (6.4-8.2)
[2020-12-01 12:21] LABS: BILIRUBIN,TOTAL 0.3 MG/DL (0.1-1.0)
[2020-12-01 12:23] LABS: CREATININE SERUM 0.78 MG/DL (0.60-1.30)
[2020-12-01 12:26] LABS: MAGNESIUM 1.9 MG/DL (1.6-2.4)
[2020-12-01 12:27] LABS: PROTHROMBIN TIME PATIENT 13.3 SEC (12.2-14.7)
[2020-12-01 12:30] LABS: ERYTHROCYTE SEDIMENTATION RATE 13 MM/HR (0-30)
[2020-12-01] MEDS ORDERED: KETOROLAC 30 MG/ML VIAL IVP ONE (12:30)
--- NOTE | 2020-12-01 12:40 | ED Headache ---
General Chief Complaint: Head/Cervical Problems Stated Complaint: CP,BROCK Nursing Triage Note: Pt ambulatory to ED from [facility] with c/o BROCK and chest palpitations. Pt was sent from [facility] for BROCK that began yesterday afternoon. Pt reports having chronic BROCK following a craniotomy Sep 21, but today yesterday the BROCK became worse and radiates through her neck. Pt rates pain /10 and describes it as "pressure." A&Ox4, no neuro deficits noted at this time. Source: patient History of Present Illness Date Seen by Provider: Dec 01, 2020 Time Seen by Provider: 11:13 Initial Comments PT ARRIVES VIA POV--STATES SHE WAS SENT HERE FROM [facility] PT C/O HEADACHE PAIN IS TO TOP AND SIDES OF HEAD AND DESCRIBES IT "PRESSURE" PT HAS CONSTANT, DAILY HEADACHES ALL DAY EVERY DAY SINCE SEPTEMBER STATES TO ME THAT THIS HEADACHE IS NO DIFFERENT TODAY IN ANY WAY--STATES "MY DAUGHTER MADE ME COME AND GET CHECKED OUT" PT HAD VIRAL MENINGITIS AND A BRAIN ABSCESS AND HAD A CRANIOTOMY 09/30/20 IN [facility] SHE HAS HAD HEADACHES EVER SINCE THEN ADDITIONALLY PT HAS HAD 2 STROKES IN SEPTEMBER WELL--WITH SOME MILD MEMORY IMPAIRMENT AND USES A CANE FOR MILD UNSTEADY GAIT SHE ALSO HAS CHRONIC NECK AND BACK PAIN AND GENERALIZED PAIN DENIES FEVER NO URI SYMPTOMS OR ILLNESS IN THE LAST WEEK OR TWO DENIES VISION CHANGES DENIES NAUSEA/VOMITING DENIES DIZZINESS DENIES PARESTHESIAS OR MOTOR DEFICITS DENIES NECK PAIN OR STIFFNESS TO ME PT STATES SHE TAKES OXYCODONE DAILY FOR THESE HEADACHES, BUT HAS ALSO BEEN ON OXYCODONE FOR YEARS FOR CHRONIC GENERALIZED PAIN PT STATES SHE JUST MOVED HERE IN [place] FROM [place] STATES SHE HAD COVID-19 IN AUGUST HAS HAD BOTH MODERNA COVID-19 VACCINES--LAST ONE WAS 11/21/20 STATES SHE HAD NOT SEEN A NEUROLOGIST SINCE SHE WAS DISMISSED FROM [facility] ON , AND DOES NOT HAVE AN APPOINTMENT WITH ANY NEUROLOGIST ANYWHERE PT STATES SHE HAD NON-HODGKIN'S LYMPHOMA SINCE 1999--LAST TIME SHE HAD CHEMO WAS WHEN SHE TOOK A VERY BRIEF ROUND OF CHEMO IN 2016--NO TREATMENT SINCE, AND REPORTS NO RECURRENCE. ADDITIONALLY, PT STATES SHE HAS GRAVE'S DISEASE AND SUZANNE'S DISEASE. PT HAS NOT ESTABLISHED WITH AN FELT TIPPING MACHINE TENDER EITHER PT HAS COPD AND NIDDM DENIES ANY MISSED DOSES OF MEDICATIONS, BUT DID NOT BRING A MEDICATION LIST WITH HER, AND DOES NOT KNOW ANY OF HER MEDICATIONS STATES SHE DID HAVE MEDICATION CHANGES AFTER SHE WAS HOSPITALIZED IN SEPTEMBER, BUT HAS NO IDEA WHAT THOSE CHANGES WERE PCP: LATESHA Allergies and Home Medications Allergies Coded Allergies: lithium (Verified Allergy, Unknown, 07/15/20) Patient Home Medication List Home Medication List Reviewed: Yes Ketorolac Tromethamine (Ketorolac Tromethamine) 10 Mg Tablet, 10 MG PO Q6H Prescribed by: BERNIE CASTLE on 12/01/20 1326 Review of Systems Review of Systems Constitutional: no symptoms reported; No chills, No diaphoresis, No dizziness, No fever, No malaise, No weakness Eyes: No Symptoms Reported; Denies Blurred Vision, Denies Photophobia Ears, Nose, Mouth, Throat: no symptoms reported Respiratory: no symptoms reported Cardiovascular: no symptoms reported Gastrointestinal: no symptoms reported Genitourinary: no symptoms reported Musculoskeletal: no symptoms reported Skin: no symptoms reported; No rash Psychiatric/Neurological: See HPI, Headache; Denies Numbness, Denies P aresthesia, Denies Seizure, Denies Tingling, Denies Weakness Past Zflnghj-Gibndo-Fevjkb Hx Patient Social History Tobacco Use?: Yes Tobacco type used: Cigarettes Smoking Status: Former Smoker (HISTORY OF VERY HEAVY SMOKING) Use of E-Cig and/or Vaping dev: No Substance use?: No Alcohol Use?: No Pt feels they are or have been: No Immunizations Up To Date Influenza Vaccine Up-to-Date: Yes; Up-to-Date First/Initial COVID19 Vaccinat: Oct 24, 2020 Second COVID19 Vaccination Rony: Nov 21, 2020 COVID19 Vaccine Tube Handler: Nir Seasonal Allergies Seasonal Allergies: Yes Past Medical History Surgeries: Yes Abdominal, Appendectomy, Gallbladder, Hysterectomy, Joint Replacement, Neurological, Oophorectomy, Orthopedic Respiratory: Yes (COVID-19 INFECTION 08/2020 WITH RESP FAILURE-NO VENTILATOR) COPD Cardiac: No Neurological: Yes (09/2020-VIRAL MENINGITIS/BRAIN ABSCESS) 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 Sexually Transmitted Disease: Yes (HERPES) Genitourinary: No Gastrointestinal: Yes (S/P GASTRIC BYPASS; CHOLECYSTECTOMY) Gastroesophageal Reflux, Gall Bladder Disease Musculoskeletal: Yes (CHRONIC PAIN COMPLAINTS-R SHOULDER,R HIP,BACK;S/P L-SPINE SURG;SPINE STIMUL) Degenerate Disk Disease, Arthritis, Back Injury, Chronic Back Pain, Spasms Endocrine: Yes (ADDISION'S DISEASE; GRAVE'S DISEASE; MORBID OBESITY) Hypothyroidsim, Diabetes, Non-Insulin dep HEENT: No Cancer: Yes (NON-HODGKIN'S LYMPHOMA DX 1999, S/P CHEMO) Lymphoma Did You Recieve Any Treatments: Yes What Type of Treatment Did You: Chemotherapy Psychosocial: Yes Anxiety, Bipolar, Depression Integumentary: No Blood Disorders: No Adverse Reaction/Blood Tranf: No Family Medical History PAST SURGICAL HISTORY: -HYSTERECTOMY/BILATERAL SALPINGO-OOPHORECTOMY -GASTRIC BYPASS -LUMBAR SPINE SURGERY -SPINAL STIMULATOR -OPEN CHOLECYSTECTOMY -APPENDECTOMY -RIGHT HIP REPLACEMENT WITH REVISION -CRANIOTOMY 09/21/20 IN [place] FOR BRAIN ABSCESS 09/12/20--ADMITTED HERE AND THEN TRANSFERRED TO [place], [place] WITH DX OF COVID-19 WITH RESPIRATORY FAILURE--NO VENTILATOR, SEPTIC SHOCK, ACUTE KIDNEY INJURY, VIRAL MENINGITIS, CVA X 2, WITH SUBSEQUENT BRAIN ABSESS, REQUIRING A CRANIOTOMY. Physical Exam Vital Signs Vital Signs - First Documented 12/01/20 12:00 Temp 36.3 Pulse 76 Resp 12 B/P (MAP) 139/88 (105) Pulse Ox 98 O2 Delivery Room Air Capillary Refill : Less Than 3 Seconds Height, Weight, BMI Height: '" Weight: lbs. oz. kg; 37.00 BMI Method: General Appearance: WD/WN, no apparent distress, obese, other (TALKS NON-STOP AT GREAT LENGTH, PLEASANT, SMILING. DOES NOT APPEAR TO BE ILL OR TO BE IN ANY DISCOMFORT OR DISTRESS.) HEENT: PERRL/EOMI, normal ENT inspection, other (CRANIOTOMY SCARS WELL HEALED WITH NO SIGNS OF INFECTION. ) Neck: full range of motion, normal inspection Cardiovascular: regular rate, rhythm, no murmur Respiratory: normal breath sounds Gastrointestinal: soft Back: no CVA tenderness Extremities: normal range of motion, normal inspection, no pedal edema, normal capillary refill Psychiatric: alert, oriented x 3 Crainal Nerves: normal hearing, normal speech, PERRL, other (SPEECH IS CLEAR AND APPROPRIATE, DOES HAVE MILD MEMORY IMPAIRMENT) Coordination/Gait: normal gait Motor/Sensory: no motor deficit, no sensory deficit Skin: normal color, warm/dry; No rash Progress/Results/Core Measures Results/Orders Lab Results Laboratory Tests Test 12/01/20 11:55 Range/Units White Blood Count 5.9 4.3-11.0 10^3/uL Red Blood Count 4.48 3.80-5.11 10^6/uL Hemoglobin 12.6 11.5-16.0 g/dL Hematocrit 39 35-52 % Mean Corpuscular Volume 88 80-99 fL Mean Corpuscular Hemoglobin 28 25-34 pg Mean Corpuscular Hemoglobin Concent 32 32-36 g/dL Red Cell Distribution Width 13.8 10.0-14.5 % Platelet Count 328 130-400 10^3/uL Mean Platelet Volume 10.0 9.0-12.2 fL Immature Granulocyte % (Auto) 1 % Neutrophils (%) (Auto) 67 42-75 % Lymphocytes (%) (Auto) 22 12-44 % Monocytes (%) (Auto) 8 0-12 % Eosinophils (%) (Auto) 3 0-10 % Basophils (%) (Auto) 1 0-10 % Neutrophils # (Auto) 3.9 1.8-7.8 10^3/uL Lymphocytes # (Auto) 1.3 1.0-4.0 10^3/uL Monocytes # (Auto) 0.5 0.0-1.0 10^3/uL Eosinophils # (Auto) 0.2 0.0-0.3 10^3/uL Basophils # (Auto) 0.0 0.0-0.1 10^3/uL Immature Granulocyte # (Auto) 0.0 0.0-0.1 10^3/uL Erythrocyte Sedimentation Rate 13 0-30 MM/HR Prothrombin Time 13.3 12.2-14.7 SEC INR Comment 1.0 0.8-1.4 Activated Partial Thromboplast Time 27 24-35 SEC Sodium Level 142 135-145 MMOL/L Potassium Level 3.5 L 3.6-5.0 MMOL/L Chloride Level 107 98-107 MMOL/L Carbon Dioxide Level 24 21-32 MMOL/L Anion Gap 11 5-14 MMOL/L Blood Urea Nitrogen 17 7-18 MG/DL Creatinine 0.78 0.60-1.30 MG/DL Estimat Glomerular Filtration Rate 76 BUN/Creatinine Ratio 22 Glucose Level 85 70-105 MG/DL Calcium Level 9.6 8.5-10.1 MG/DL Corrected Calcium 9.7 8.5-10.1 MG/DL Magnesium Level 1.9 1.6-2.4 MG/DL Total Bilirubin 0.3 0.1-1.0 MG/DL Aspartate Amino Transf (AST/SGOT) 20 5-34 U/L Alanine Aminotransferase (ALT/SGPT) 19 0-55 U/L Alkaline Phosphatase 91 40-136 U/L C-Reactive Protein High Sensitivity 0.19 0.00-0.50 MG/DL Total Protein 6.8 6.4-8.2 GM/DL Albumin 3.9 3.2-4.5 GM/DL My Orders Orders - BERNIE CASTLE DO Ed Iv/Invasive Line Start (12/01/20 11:14) Monitor-Rhythm Ecg Trace Only (12/01/20 11:14) Ct Head Wo-R/O Stroke (12/01/20 11:14) Cbc With Automated Diff (12/01/20 11:14) Comprehensive Metabolic Panel (12/01/20 11:14) Hs C Reactive Protein (12/01/20 11:14) Magnesium (12/01/20 11:14) Protime With Inr (12/01/20 11:14) Partial Thromboplastin Time (12/01/20 11:14) Erythrocyte Sedimentation Rate (12/01/20 11:14) Ketorolac Injection (Toradol Injection) (12/01/20 12:30) Magnesium 1 Gm/100 Ml Ivpb (Magnesium Smith (12/01/20 12:30) Medications Given in ED Current Medications Medications Dose Ordered Sig/Trino Route Start Time Stop Time Status Last Admin Dose Admin Ketorolac Tromethamine 30 mg ONCE ONCE IVP 12/01/20 12:30 12/01/20 12:31 DC 12/01/20 12:56 30 MG Vital Signs/I&O 12/01/20 12/01/20 12:00 14:34 Temp 36.3 Pulse 76 68 Resp 12 14 B/P (MAP) 139/88 (105) 122/73 Pulse Ox 98 97 O2 Delivery Room Air Room Air Blood Pressure Mean: 105 Progress Progress Note : Progress Note MUCH LATER DURING ER STAY, PT STATES SHE DOES TAKE HYDROCORTISONE 15 MG DAILY GAVE TORADOL AND MAGNESIUM WITH SIGNIFICANT IMPROVEMENT AND COMPLETE RELIEF OF HEADACHE Initial ECG Impression Date: Dec 01, 2020 Initial ECG Impression Time: 11:13 Initial ECG Rate: 76 Initial ECG Rhythm: Normal Sinus Diagnostic Imaging Comments CT HEAD--NO ACUTE PROCESS, POST SURGICAL CHANGES, AND CHRONIC CHANGES FROM PRIOR CVA'S--PER RADIOLOGIST VIA PHONE AT 1152 Findings: There is no evidence of interval acute cerebral infarct, intracranial hemorrhage, or gross mass effect. There are interval posterior changes with left frontal craniotomy and development of low-density/encephalomalacia the left frontal region. There is consolidation of the frontal sinus operative area and extending to the left frontal recess/anterior left ethmoid sinus region. There is interval resolution of previously seen intra-cranial blood in the left frontal region. Previously seen small area of low density involving the posterior left frontal lobe region has resolved. There is no brain herniation or midline shift. There is interval slight ex vacuo dilation of the anterior aspect of left lateral ventricle. There is no hydrocephalus. The remainder of the brain parenchyma is unremarkable. Besides postop changes in left frontal skull craniotomy, there is no significant abnormality involving the extracranial soft tissue and orbits. Mastoid air cells are clear. IMPRESSION: 1: There is no CT evidence of acute intracranial process. There is no intracranial hemorrhage or CT evidence of acute cerebral infarct. There is no dense vessel sign seen. 2: There is interval postoperative changes with left frontal craniotomy and progression of encephalomalacia involving left frontal lobe. 3: Interval resolution of previously seen intracranial blood. 4: Interval resolution of the small area of low density involving the posterior left frontal lobe. Reviewed: Reviewed by Me Departure Impression Primary Impression: Persistent headaches Additional Impression: S/P craniotomy Disposition: 01 HOME, SELF-CARE Condition: Improved Departure-Patient Inst. Decision time for Depature: 13:25 Referrals: [facility] (PCP/Family) Primary Care Physician Patient Instructions: How to Keep Track of Your Headaches Add. Discharge Instructions: CONTINUE YOUR REGULAR MEDICATIONS PRESCRIBED FOLLOW UP WITH [facility] THIS WEEK FOR FURTHER CARE, AND ASSISTANCE WITH E STABLISHING WITH NEUROLOGIST AND FELT TIPPING MACHINE TENDER All discharge instructions reviewed with patient and/or family. Voiced underst anding. Scripts Ketorolac Tromethamine (Ketorolac Tromethamine) 10 Mg Tablet 10 MG PO Q6H for Pain, #15 TAB Prov: BERNIE CASTLE DO 12/01/20 BERNIE CASTLE DO Dec 01, 2020 12:40
[2020-12-01] MEDS: MAGNESIUM 1 GM/100 ML IVPB 100 ML IV SCH ×2 (12:55→13:59)
[2020-12-01] MEDS ORDERED: KETO10TA PO (13:26)
[2020-12-01 14:34] VITALS: BP 122/73
== END 2020-12-01 14:30 | disposition home or self-care (01) ==
LOC: ER 11:07
DX: R51.9 Headache, unspecified (principal); J44.9 Chronic obstructive pulmonary disease, unspecified; E66.9 Obesity, unspecified; E11.9 Type 2 diabetes mellitus without complications; Z68.37 Body mass index [BMI] 37.0-37.9, adult; Z98.890 Other specified postprocedural states; Z87.891 Personal history of nicotine dependence
CPT/HCPCS: 36415; 70450; 80053; 83735; 85025; 85610; 85652; 85730; 86141; 93005; 93041

== ENCOUNTER 2020-12-08 11:30 | Outpatient (RCR) | payer MEDICARE, MEDICAID ==
[~2020-12-08 11:30] MED LIST changes: +CYCL10TA25 PO; -CYCL10TA9 PO; +KETO10TA PO
[2020-12-08 12:18] LABS: BASOPHILS # (AUTO) 0.1 10^3/uL (0.0-0.1); BASOPHILS % (AUTO) 1 % (0-10); EOSINOPHILS # (AUTO) 0.2 10^3/uL (0.0-0.3); EOSINOPHILS % (AUTO) 3 % (0-10); HEMATOCRIT 39 % (35-52); HEMOGLOBIN 12.4 g/dL (11.5-16.0); LYMPHOCYTES # (AUTO) 1.5 10^3/uL (1.0-4.0); LYMPHOCYTES % (AUTO) 27 % (12-44); MEAN CORPUSCULAR HEMOGLOBIN 28 pg (25-34); MEAN CORPUSCULAR HGB CONC 32 g/dL (32-36); MEAN CORPUSCULAR VOLUME 87 fL (80-99); MEAN PLATELET VOLUME 10.2 fL (9.0-12.2); MONOCYTES # (AUTO) 0.4 10^3/uL (0.0-1.0); MONOCYTES % (AUTO) 7 % (0-12); NEUTROPHILS # (AUTO) 3.6 10^3/uL (1.8-7.8); NEUTROPHILS % (AUTO) 63 % (42-75); PLATELET COUNT 306 10^3/uL (130-400); WHITE BLOOD COUNT 5.8 10^3/uL (4.3-11.0)
[2020-12-08 13:01] LABS: ALBUMIN 3.9 GM/DL (3.2-4.5); BILIRUBIN,TOTAL 0.4 MG/DL (0.1-1.0); CALCIUM 9.8 MG/DL (8.5-10.1); CREATININE SERUM 0.78 MG/DL (0.60-1.30); POTASSIUM 3.8 MMOL/L (3.6-5.0); TOTAL PROTEIN 7.1 GM/DL (6.4-8.2)
== END 2021-02-20 | disposition home or self-care (01) ==
LOC: ONC 11:30
PROVIDERS: ATTEND Internal Medicine Hematology & Oncology
DX: C82.20 Follicular lymphoma grade III, unspecified, unspecified site (principal); D50.9 Iron deficiency anemia, unspecified; E03.9 Hypothyroidism, unspecified; E89.3 Postprocedural hypopituitarism; Z98.84 Bariatric surgery status; Z86.16 Personal history of COVID-19
CPT/HCPCS: 80053; 83615; 84443; 85025; G0463; 99214

== ENCOUNTER 2021-02-05 10:58 | Emergency (ER) | payer MEDICARE, MEDICAID ==
[~2021-02-05] VITALS: Ht 165 cm; Wt 95.0 kg
[2021-02-05 11:15] VITALS: BP 128/98
[2021-02-05] MEDS ORDERED: PROCHLORPERAZINE 10 MG/2ML INJ (COMPAZINE) IM ONE (11:30)
[2021-02-05] MEDS ORDERED: KETOROLAC 60 MG/2 ML VIAL IM ONE (11:30)
[2021-02-05] MEDS ORDERED: diphenhydrAMINE 50 MG/ML INJ (BENADRYL) IM ONE (11:30)
--- NOTE | 2021-02-05 11:34 | ED Headache ---
General Chief Complaint: Head/Cervical Problems Stated Complaint: BROCK Nursing Triage Note: ARRIVED VIA AMB WITHOUT DIFFICULTY. COMPLINS OF A HEADACHE STARTING THIS AM. TAKING EXCEDRIN AND IT IS NOT HELPING. COVID ON TUESDAY WAS NEG. Source: patient Exam Limitations: no limitations (EVA AARON APRN) History of Present Illness Date Seen by Provider: Feb 05, 2021 Time Seen by Provider: 11:32 Initial Comments To ER with intermittent headaches since her craniotomy for cancer in September of this year. States that she ran out of her oxycodone about a month ago. Timing/Duration: 1 week Severity/Quality: moderate Prior Headaches/Recent Trauma: frequent headaches Associated Symptoms: denies symptoms (EVA AARON APRN) Allergies and Home Medications Allergies Coded Allergies: lithium (Verified Allergy, Unknown, 07/15/20) Patient Home Medication List Home Medication List Reviewed: Yes (EVA AARON APRN) Ketorolac Tromethamine (Ketorolac Tromethamine) 10 Mg Tablet, 10 MG PO Q6H Prescribed by: BERNIE CASTLE on 12/01/20 1326 Review of Systems Review of Systems Constitutional: see HPI Eyes: No Symptoms Reported Ears, Nose, Mouth, Throat: no symptoms reported Respiratory: no symptoms reported Cardiovascular: no symptoms reported Genitourinary: no symptoms reported Musculoskeletal: no symptoms reported Psychiatric/Neurological: Headache (EVA AARON APRN) Past Pegynmm-Jsehhc-Vcoywo Hx Patient Social History Smoking Status: Former Smoker Alcohol Use?: No (EVA AARON APRN) Immunizations Up To Date First/Initial COVID19 Vaccinat: Oct 24, 2020 Second COVID19 Vaccination Rony: 12/11 COVID19 Vaccine 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 (EVA AARON APRN) Seasonal Allergies Seasonal Allergies: Yes (EVA AARON APRN) Past Medical History Surgeries: Yes Abdominal, Appendectomy, Gallbladder, Hysterectomy, Joint Replacement, Neurological, Oophorectomy, Orthopedic Respiratory: Yes (COVID-19 INFECTION 08/2020 WITH RESP FAILURE-NO VENTILATOR) COPD Cardiac: No Neurological: Yes (09/2020-VIRAL MENINGITIS/BRAIN ABSCESS) 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 Sexually Transmitted Disease: Yes (HERPES) Genitourinary: No Gastrointestinal: Yes (S/P GASTRIC BYPASS; CHOLECYSTECTOMY) Gastroesophageal Reflux, Gall Bladder Disease Musculoskeletal: Yes (CHRONIC PAIN COMPLAINTS-R SHOULDER,R HIP,BACK;S/P L-SPINE SURG;SPINE STIMUL) Degenerate Disk Disease, Arthritis, Back Injury, Chronic Back Pain, Spasms Endocrine: Yes (ADDISION'S DISEASE; GRAVE'S DISEASE; MORBID OBESITY) Hypothyroidsim, Diabetes, Non-Insulin dep HEENT: No Cancer: Yes (NON-HODGKIN'S LYMPHOMA DX 1999, S/P CHEMO) Lymphoma Did You Recieve Any Treatments: Yes What Type of Treatment Did You: Chemotherapy Psychosocial: Yes Anxiety, Bipolar, Depression Integumentary: No Blood Disorders: No Adverse Reaction/Blood Tranf: No (EVA AARON APRN) Family Medical History PAST SURGICAL HISTORY: -HYSTERECTOMY/BILATERAL SALPINGO-OOPHORECTOMY -GASTRIC BYPASS -LUMBAR SPINE SURGERY -SPINAL STIMULATOR -OPEN CHOLECYSTECTOMY -APPENDECTOMY -RIGHT HIP REPLACEMENT WITH REVISION -CRANIOTOMY 09/21/20 IN [place] FOR BRAIN ABSCESS 09/12/20--ADMITTED HERE AND THEN TRANSFERRED TO [place], [place] WITH DX OF COVID-19 WITH RESPIRATORY FAILURE--NO VENTILATOR, SEPTIC SHOCK, ACUTE KIDNEY INJURY, VIRAL MENINGITIS, CVA X 2, WITH SUBSEQUENT BRAIN ABSESS, REQUIRING A CRANIOTOMY. (EVA AARON APRN) Physical Exam Vital Signs Vital Signs - First Documented 02/05/21 11:15 Temp 36.3 Pulse 83 Resp 16 B/P (MAP) 128/98 (108) Pulse Ox 97 O2 Delivery Room Air (RONY CARRILLO MD) Vital Signs Capillary Refill : Less Than 3 Seconds (EVA AARON APRN) Height, Weight, BMI Height: '" Weight: lbs. oz. kg; 34.00 BMI Method: General Appearance: WD/WN, no apparent distress HEENT: PERRL/EOMI, normal ENT inspection, TMs normal Neck: non-tender, full range of motion Respiratory: no respiratory distress, no accessory muscle use Gastrointestinal: normal bowel sounds, non tender, soft Extremities: normal range of motion, non-tender Psychiatric: alert, oriented x 3 Crainal Nerves: normal hearing, normal speech, PERRL Skin: normal color, warm/dry (EVA AARON APRN) Progress/Results/Core Measures Results/Orders Medications Given in ED Current Medications Medications Dose Ordered Sig/Trino Route Start Time Stop Time Status Last Admin Dose Admin Diphenhydramine HCl 25 mg ONCE ONCE IM 02/05/21 11:30 02/05/21 11:31 DC 02/05/21 11:33 25 MG Ketorolac Tromethamine 60 mg ONCE ONCE IM 02/05/21 11:30 02/05/21 11:31 DC 02/05/21 11:34 60 MG Oxycodone/ Acetaminophen 1 tab ONCE ONCE PO 02/05/21 12:00 02/05/21 12:01 DC 02/05/21 12:02 1 TAB Prochlorperazine Edisylate 10 mg ONCE ONCE IM 02/05/21 11:30 02/05/21 11:31 DC 02/05/21 11:33 10 MG (RONY CARRILLO MD) Vital Signs/I&O 02/05/21 11:15 Temp 36.3 Pulse 83 Resp 16 B/P (MAP) 128/98 (108) Pulse Ox 97 O2 Delivery Room Air (RONY CARRILLO MD) Blood Pressure Mean: 108 Departure Communication (Admissions) NAME: [facility] REC#: [id number] PT STATUS: REG ER : 1960 PHYSICIAN: EVA AARON APRN ADMIT DATE: 02/05/21/ER Draft Date of Exam:02/05/21 CT HEAD WO EXAMINATION: CT head without contrast. TECHNIQUE: Multiple contiguous axial images were obtained through the brain without the use of intravenous contrast. All CT scans use one or more of the following dose optimizing techniques: automated exposure control, MA and/or KvP adjustment based on patient size and exam type or iterative reconstruction. HISTORY: headache COMPARISON: 12/01/2020 FINDINGS: Stable left frontal lobe encephalomalacia with ex vacuo dilatation of the anterior left lateral ventricle. Ventricles and sulci are otherwise normal. No other abnormal attenuation of brain parenchyma is present. No acute intracranial hemorrhage or abnormal extra-axial fluid collections are present. Calcification of the intracranial ICAs. No hyperdense vessel. Stable surgical changes of the left frontal calvarium. The calvarium is otherwise intact. The mastoid air cells are clear. Mucosal thickening and fluid seen within the left frontal sinus. The orbits are normal. IMPRESSION: 1. No acute intracranial abnormality. 2. Surgical changes left calvarium with chronic encephalomalacia of the left frontal lobe and ex vacuo dilatation of the left frontal lateral ventricle. Dictated on workstation # [id number] Dict: 02/05/21 1149 Trans: 02/05/21 1153 [id number] Interpreted by: DEEPTI MURO DO Electronically signed by: (EVA AARON APRN) Impression Primary Impression: Persistent headaches Disposition: HOME, SELF-CARE Condition: Improved Departure-Patient Inst. Decision time for Depature: 11:34 (EVA AARON APRN) Referrals: [facility] (PCP) Primary Care Physician MATEUS COLMENARES APRN (Family) Primary Care Physician Patient Instructions: Headache, Adult (DC) ATTENDING PHYSICIAN NOTE: I was physically present as attending physician in the emergency department during the care of this patient, but I was not directly involved in the decision making or delivery of care for this patient. (RONY CARRILLO MD) EVA AARON APRN Feb 05, 2021 11:34 RONY CARRILLO MD Feb 05, 2021 19:23
--- NOTE | 2021-02-05 11:53 | Diagnostic Imaging Report ---
EXAMINATION: CT head without contrast. TECHNIQUE: Multiple contiguous axial images were obtained through the brain without the use of intravenous contrast. All CT scans use one or more of the following dose optimizing techniques: automated exposure control, MA and/or KvP adjustment based on patient size and exam type or iterative reconstruction. HISTORY: headache COMPARISON: 12/01/2020 FINDINGS: Stable left frontal lobe encephalomalacia with ex vacuo dilatation of the anterior left lateral ventricle. Ventricles and sulci are otherwise normal. No other abnormal attenuation of brain parenchyma is present. No acute intracranial hemorrhage or abnormal extra-axial fluid collections are present. Calcification of the intracranial ICAs. No hyperdense vessel. Stable surgical changes of the left frontal calvarium. The calvarium is otherwise intact. The mastoid air cells are clear. Mucosal thickening and fluid seen within the left frontal sinus. The orbits are normal. IMPRESSION: 1. No acute intracranial abnormality. 2. Surgical changes left calvarium with chronic encephalomalacia of the left frontal lobe and ex vacuo dilatation of the left frontal lateral ventricle. Dictated by: Dictated on workstation # [id number]
[2021-02-05] MEDS ORDERED: oxyCODONE/APAP 5/325MG (PERCOCET 5) TABLET PO ONE (12:00)
== END 2021-02-05 12:03 | disposition home or self-care (01) ==
LOC: EDUNIT# 10:58 → ER 11:01
DX: R51.9 Headache, unspecified (principal); J44.9 Chronic obstructive pulmonary disease, unspecified; E11.9 Type 2 diabetes mellitus without complications; Z87.891 Personal history of nicotine dependence
CPT/HCPCS: 70450

== ENCOUNTER → 2021-02-23 | Outpatient (CLI) | payer MEDICARE, MEDICAID ==
[~2021-02-23] MED LIST changes: +CATHETER FLUSH 10 ML SYR IV PRN; +HOLD METFORMIN - RECEIVED CONTRAST 20 ML VIAL IV SCH; +IOHEXOL 350 MG/ML 100 ML (OMNIPAQUE 350) VIAL IV ONE; +NS 100 ML (IVPB) BAG IV ONE
--- NOTE | 2021-02-23 17:09 | Diagnostic Imaging Report ---
EXAMINATION: CT neck and chest with contrast. CT abdomen with and without intravenous contrast. TECHNIQUE: Multiple contiguous axial images were obtained through the neck, chest, and abdomen after the uneventful administration of intravenous contrast. Pre-contrast images of the abdomen were also obtained. All CT scans use one or more of the following dose optimizing techniques: automated exposure control, MA and/or KvP adjustment based on patient size and exam type or iterative reconstruction. HISTORY: HX OF NON- HODGKIN LYMPHOMAS COMPARISON: 09/18/2020, 08/05/2020 FINDINGS: Neck CT: Mildly enlarged cervical lymph nodes which measure up to 1.0 x 0.8 cm on the left cervical chain. These are mildly increased in size from 09/18/2020. The muscles of the neck are normal. Vessels of the neck demonstrate normal course and caliber. Fascial planes are preserved and the deep spaces of the neck are normal. The visualized airway is widely patent. The base of the skull and the temporal bones are normal. Limited views of the brain including the cerebellum and brainstem are normal. The limited view of the [place] is unremarkable. The visualized portions of the orbits are normal. No suspicious osseous lesion or compression fracture within the cervical spine. The thyroid gland is unremarkable. Chest CT: The lungs are clear without edema or pneumonia. No pleural effusion or pneumothorax. No suspicious nodules. Heart size is normal. There are mild coronary artery calcifications. No pericardial effusion. Aorta is normal in caliber. There is no axillary or supraclavicular lymphadenopathy. There is no mediastinal lymphadenopathy. Abdomen and Pelvis CT: The liver is normal without focal lesion. There is no biliary ductal dilation. The gallbladder is surgically absent. Pancreas is normal. Spleen is normal. Adrenal glands are normal. Left renal cyst is present. No hydronephrosis. Surgical changes of the stomach and small bowel. No bowel obstruction. No free fluid or air. No abdominal lymphadenopathy. Aorta is normal in caliber without aneurysm. This is suspicious osseous lesion or compression fracture. Spinal stimulator is present. IMPRESSION: 1. Borderline enlarged cervical lymph nodes greatest within the left cervical chain. These are minimally increased in size from 09/18/2020. 2. No suspicious lymphadenopathy is seen within the chest or abdomen. Dictated by: Dictated on workstation # [id number]
== END ==
LOC: RAD 13:15
PROVIDERS: ATTEND Internal Medicine Hematology & Oncology
DX: Z85.72 Personal history of non-Hodgkin lymphomas (principal)
CPT/HCPCS: 70491; 71260; 74170

== ENCOUNTER 2021-03-02 12:38 | Outpatient (RCR) | payer MEDICARE, MEDICAID ==
[2021-02-23 12:42] LABS: BASOPHILS # (AUTO) 0.1 10^3/uL (0.0-0.1); BASOPHILS % (AUTO) 1 % (0-10); EOSINOPHILS # (AUTO) 0.1 10^3/uL (0.0-0.3); EOSINOPHILS % (AUTO) 2 % (0-10); HEMATOCRIT 43 % (35-52); HEMOGLOBIN 13.8 g/dL (11.5-16.0); LYMPHOCYTES # (AUTO) 1.6 10^3/uL (1.0-4.0); LYMPHOCYTES % (AUTO) 24 % (12-44); MEAN CORPUSCULAR HEMOGLOBIN 27 pg (25-34); MEAN CORPUSCULAR HGB CONC 32 g/dL (32-36); MEAN CORPUSCULAR VOLUME 83 fL (80-99); MEAN PLATELET VOLUME 10.3 fL (9.0-12.2); MONOCYTES # (AUTO) 0.5 10^3/uL (0.0-1.0); MONOCYTES % (AUTO) 8 % (0-12); NEUTROPHILS # (AUTO) 4.2 10^3/uL (1.8-7.8); NEUTROPHILS % (AUTO) 65 % (42-75); PLATELET COUNT 296 10^3/uL (130-400); WHITE BLOOD COUNT 6.4 10^3/uL (4.3-11.0)
[2021-02-23 13:05] LABS: ALBUMIN 4.4 GM/DL (3.2-4.5); BILIRUBIN,TOTAL 0.5 MG/DL (0.1-1.0); CALCIUM 10.2 MG/DL (8.5-10.1); CREATININE SERUM 0.9 MG/DL (0.60-1.30); POTASSIUM 3.9 MMOL/L (3.6-5.0); TOTAL PROTEIN 7.7 GM/DL (6.4-8.2)
[~2021-03-02 12:38] MED LIST changes: -CATHETER FLUSH 10 ML SYR IV PRN; -HOLD METFORMIN - RECEIVED CONTRAST 20 ML VIAL IV SCH; -IOHEXOL 350 MG/ML 100 ML (OMNIPAQUE 350) VIAL IV ONE; -NS 100 ML (IVPB) BAG IV ONE
== END 2021-03-23 | disposition home or self-care (01) ==
LOC: ONC 12:38
PROVIDERS: ATTEND Internal Medicine Hematology & Oncology
DX: Z85.72 Personal history of non-Hodgkin lymphomas (principal); Z79.899 Other long term (current) drug therapy
CPT/HCPCS: 80053; 83615; 84443; 85025; 99213

== ENCOUNTER 2021-08-25 13:05 | Outpatient (RCR) | payer MEDICARE, MEDICAID ==
[2021-08-25 13:30] LABS: BASOPHILS # (AUTO) 0.1 10^3/uL (0.0-0.1); BASOPHILS % (AUTO) 1 % (0-10); EOSINOPHILS # (AUTO) 0.1 10^3/uL (0.0-0.3); EOSINOPHILS % (AUTO) 3 % (0-10); HEMATOCRIT 47 % (35-52); LYMPHOCYTES # (AUTO) 1.4 10^3/uL (1.0-4.0); LYMPHOCYTES % (AUTO) 26 % (12-44); MEAN CORPUSCULAR HEMOGLOBIN 27 pg (25-34); MEAN CORPUSCULAR HGB CONC 32 g/dL (32-36); MEAN CORPUSCULAR VOLUME 85 fL (80-99); MEAN PLATELET VOLUME 10.8 fL (9.0-12.2); MONOCYTES # (AUTO) 0.3 10^3/uL (0.0-1.0); MONOCYTES % (AUTO) 5 % (0-12); NEUTROPHILS # (AUTO) 3.3 10^3/uL (1.8-7.8); NEUTROPHILS % (AUTO) 65 % (42-75); PLATELET COUNT 270 10^3/uL (130-400); WHITE BLOOD COUNT 5.2 10^3/uL (4.3-11.0)
[2021-08-25 13:54] LABS: ALBUMIN 4.3 GM/DL (3.2-4.5); BILIRUBIN,TOTAL 0.3 MG/DL (0.1-1.0); CALCIUM 10.1 MG/DL (8.5-10.1); CREATININE SERUM 1.07 MG/DL (0.60-1.30); POTASSIUM 4.5 MMOL/L (3.6-5.0); TOTAL PROTEIN 7.4 GM/DL (6.4-8.2)
== END 2021-09-20 | disposition home or self-care (01) ==
LOC: ONC 13:05
PROVIDERS: ATTEND Internal Medicine Hematology & Oncology
DX: D50.9 Iron deficiency anemia, unspecified (principal); E03.9 Hypothyroidism, unspecified; J01.90 Acute sinusitis, unspecified; E23.0 Hypopituitarism; Z85.72 Personal history of non-Hodgkin lymphomas
CPT/HCPCS: 36415; 80053; 83615; 84443; 85025

== ENCOUNTER 2021-08-31 09:30 | Outpatient (RCR) | payer MEDICARE, MEDICAID | END 2021-09-20 | disposition home or self-care (01) | LOC: ONC 09:30 | PROVIDERS: ATTEND Internal Medicine Hematology & Oncology | DX: C82.80 Other types of follicular lymphoma, unspecified site (principal); D50.9 Iron deficiency anemia, unspecified; E03.9 Hypothyroidism, unspecified; E23.0 Hypopituitarism; Z98.84 Bariatric surgery status | CPT/HCPCS: 99213 ==

== ENCOUNTER → 2021-09-28 | Outpatient (CLI) | payer MEDICARE, MEDICAID ==
--- NOTE | 2021-09-28 12:13 | Diagnostic Imaging Report ---
PROCEDURE: CT sinuses without contrast TECHNIQUE: Multiple contiguous axial images were obtained through the sinuses without the use of intravenous contrast. Coronal and sagittal reformations were then performed. Auto Exposure Controls were utilized during the CT exam to meet ALARA standards for radiation dose reduction. INDICATION: Non-Hodgkin's lymphoma. Patient complaining of nasal drainage and allergic rhinitis. FINDINGS: There is opacification of the left half of the frontal sinus. There appears to be a defect in the outer wall of the frontal sinus at the midline, not entirely included on this study. The ethmoid air cells are well aerated. The sphenoid sinuses are clear. The bilateral maxillary sinuses are clear. The mastoids are well aerated. The ostiomeatal complexes are patent. The nasal septum is midline. IMPRESSION: There is opacification in the left half of the frontal sinus with a focal defect in the outer wall of the frontal sinus at the midline. All other paranasal sinuses are clear. Dictated by: Dictated on workstation # [id number]
== END ==
LOC: RAD 11:13
PROVIDERS: ATTEND Otolaryngology Otolaryngology/Facial Plastic Surgery
DX: J30.9 Allergic rhinitis, unspecified (principal); C85.90 Non-Hodgkin lymphoma, unspecified, unspecified site
CPT/HCPCS: 70486

== ENCOUNTER 2021-10-11 16:40 | Emergency (ER) | payer MEDICARE, MEDICAID ==
[~2021-10-11] VITALS: Ht 167.7 cm; Wt 95.3 kg
[2021-10-11] MEDS ORDERED: NS IV 1000 ML 1,000 ML IV STA (17:07)
--- NOTE | 2021-10-11 17:13 | ED Headache ---
General Chief Complaint: Head/Cervical Problems Stated Complaint: MIGRAINE Source: patient Exam Limitations: no limitations (JOSÉ GAMING) History of Present Illness Date Seen by Provider: Oct 11, 2021 Time Seen by Provider: 17:11 Initial Comments This is a pleasant 61-year-old female with history of chronic migraines that presents to the emergency room via EMS for evaluation of a headache. She states that this is very typical for her daily headaches but they have recently changed her migraine medications and it is not well controlled. She states that she has photosensitivity which is typical for her. She has not had any nausea or vomiting and she denies any weakness, numbness or tingling Timing/Duration: 24 hours Severity/Quality: constant, pressure Location: frontal Prior Headaches/Recent Trauma: no recent headache/trauma, frequent headaches (JOSÉ GAMING) Allergies and Home Medications Allergies Coded Allergies: lithium (Verified Allergy, Unknown, 07/15/20) Patient Home Medication List Home Medication List Reviewed: Yes (JOSÉ GAMING) Ketorolac Tromethamine (Ketorolac Tromethamine) 10 Mg Tablet, 10 MG PO Q6H Prescribed by: BERNIE CASTLE on 12/01/20 1326 Review of Systems Review of Systems Constitutional: no symptoms reported Eyes: No Symptoms Reported Ears, Nose, Mouth, Throat: no symptoms reported Respiratory: no symptoms reported Psychiatric/Neurological: Headache (JOSÉ GAMING) Past Afuyetj-Ffhucz-Kvwjlq Hx Immunizations Up To Date First/Initial COVID19 Vaccinat: Oct 24, 2020 Second COVID19 Vaccination Rony: 12/11 (JOSÉ GAMING) Seasonal Allergies Seasonal Allergies: Yes (JOSÉ GAMING) Past Medical History Surgeries: Yes Abdominal, Appendectomy, Gallbladder, Hysterectomy, Joint Replacement, Neurological, Oophorectomy, Orthopedic Respiratory: Yes (COVID-19 INFECTION 08/2020 WITH RESP FAILURE-NO VENTILATOR) COPD Cardiac: No Neurological: Yes (09/2020-VIRAL MENINGITIS/BRAIN ABSCESS) 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 Sexually Transmitted Disease: Yes (HERPES) Genitourinary: No Gastrointestinal: Yes (S/P GASTRIC BYPASS; CHOLECYSTECTOMY) Gastroesophageal Reflux, Gall Bladder Disease Musculoskeletal: Yes (CHRONIC PAIN COMPLAINTS-R SHOULDER,R HIP,BACK;S/P L-SPINE SURG;SPINE STIMUL) Degenerate Disk Disease, Arthritis, Back Injury, Chronic Back Pain, Spasms Endocrine: Yes (ADDISION'S DISEASE; GRAVE'S DISEASE; MORBID OBESITY) Hypothyroidsim, Diabetes, Non-Insulin dep HEENT: No Cancer: Yes (NON-HODGKIN'S LYMPHOMA DX 1999, S/P CHEMO) Lymphoma Did You Recieve Any Treatments: Yes What Type of Treatment Did You: Chemotherapy Psychosocial: Yes Anxiety, Bipolar, Depression Integumentary: No Blood Disorders: No Adverse Reaction/Blood Tranf: No (JOSÉ GAMING) Family Medical History PAST SURGICAL HISTORY: -HYSTERECTOMY/BILATERAL SALPINGO-OOPHORECTOMY -GASTRIC BYPASS -LUMBAR SPINE SURGERY -SPINAL STIMULATOR -OPEN CHOLECYSTECTOMY -APPENDECTOMY -RIGHT HIP REPLACEMENT WITH REVISION -CRANIOTOMY 09/21/20 IN [place] FOR BRAIN ABSCESS 09/12/20--ADMITTED HERE AND THEN TRANSFERRED TO [place], [place] WITH DX OF COVID-19 WITH RESPIRATORY FAILURE--NO VENTILATOR, SEPTIC SHOCK, ACUTE KIDNEY INJURY, VIRAL MENINGITIS, CVA X 2, WITH SUBSEQUENT BRAIN ABSESS, REQUIRING A CRANIOTOMY. (JOSÉ GAMING) Physical Exam Vital Signs Vital Signs - First Documented 10/11/21 10/11/21 16:42 19:45 Temp 36.7 Pulse 68 Resp 16 B/P (MAP) 136/74 (94) Pulse Ox 98 O2 Delivery Room Air (RONY CARRILLO MD) Vital Signs Capillary Refill : (JOSÉ GAMING) Height, Weight, BMI Height: '" Weight: lbs. oz. kg; 34.00 BMI Method: General Appearance: WD/WN, no apparent distress HEENT: PERRL/EOMI, TMs normal Neck: non-tender, full range of motion Cardiovascular: regular rate, rhythm, no edema Respiratory: chest non-tender, lungs clear Gastrointestinal: normal bowel sounds, non tender Extremities: normal range of motion, non-tender Psychiatric: alert, oriented x 3 Skin: normal color, warm/dry Lymphatic: no adenopathy (JOSÉ GAMING) Progress/Results/Core Measures Results/Orders Vital Signs/I&O 10/11/21 10/11/21 16:42 19:45 Temp 36.7 Pulse 68 60 Resp 16 B/P (MAP) 136/74 (94) 126/78 Pulse Ox 98 96 O2 Delivery Room Air Room Air (RONY CARRILLO MD) Departure Communication (Admissions) Patient feels markedly improved after IV medication/hydration here in the emergency room. Her migraine has resolved. She will follow-up with her primary neurology team and return to the emergency room if worse. (JOSÉ GAMING) Impression Primary Impression: Headache Disposition: 01 HOME, SELF-CARE Condition: Stable Departure-Patient Inst. Decision time for Depature: 19:26 (JOSÉ GAMING) Referrals: [facility] [place] (PCP) Primary Care Physician MATEUS COLMENARES APRN (Family) Primary Care Physician Patient Instructions: Migraines (DC) ATTENDING PHYSICIAN NOTE: I was physically present as attending physician in the emergency department during the care of this patient, but I was not directly involved in the decision making or delivery of care for this patient. (RONY CARRILLO MD) JOSÉ GAMING Oct 11, 2021 17:13 RONY CARRILLO MD Oct 12, 2021 06:37
[2021-10-11] MEDS ORDERED: METOCLOPRAMIDE INJ 10 MG/2 ML (REGLAN) IVP ONE (17:15)
[2021-10-11] MEDS ORDERED: diphenhydrAMINE 50 MG/ML INJ (BENADRYL) IVP ONE (17:15)
[2021-10-11] MEDS ORDERED: KETOROLAC 30 MG/ML VIAL IV ONE (17:15)
[2021-10-11 19:45] VITALS: BP 126/78
== END 2021-10-11 19:45 | disposition home or self-care (01) ==
LOC: ER 16:40
DX: G43.809 Other migraine, not intractable, without status migrainosus (principal); E66.01 Morbid (severe) obesity due to excess calories; Z68.34 Body mass index [BMI] 34.0-34.9, adult

== ENCOUNTER 2021-11-16 09:00 | Outpatient (RCR) | payer MEDICARE, MEDICAID ==
[~2021-11-16 09:00] MED LIST changes: -CATHETER FLUSH 10 ML SYR IV PRN; -HOLD METFORMIN - RECEIVED CONTRAST 20 ML VIAL IV SCH; -IOHEXOL 350 MG/ML 100 ML (OMNIPAQUE 350) VIAL IV ONE; -NS 100 ML (IVPB) BAG IV ONE
[2021-11-16 09:12] LABS: BASOPHILS % (AUTO) 1 % (0-10); EOSINOPHILS # (AUTO) 0.2 10^3/uL (0.0-0.3); EOSINOPHILS % (AUTO) 4 % (0-10); HEMATOCRIT 39 % (35-52); HEMOGLOBIN 13.2 g/dL (11.5-16.0); LYMPHOCYTES # (AUTO) 1.1 10^3/uL (1.0-4.0); LYMPHOCYTES % (AUTO) 26 % (12-44); MEAN CORPUSCULAR HEMOGLOBIN 29 pg (25-34); MEAN CORPUSCULAR HGB CONC 34 g/dL (32-36); MEAN CORPUSCULAR VOLUME 86 fL (80-99); MEAN PLATELET VOLUME 10.3 fL (9.0-12.2); MONOCYTES # (AUTO) 0.4 10^3/uL (0.0-1.0); MONOCYTES % (AUTO) 9 % (0-12); NEUTROPHILS # (AUTO) 2.6 10^3/uL (1.8-7.8); NEUTROPHILS % (AUTO) 61 % (42-75); PLATELET COUNT 220 10^3/uL (130-400); WHITE BLOOD COUNT 4.3 10^3/uL (4.3-11.0)
[2021-11-16 09:40] LABS: BILIRUBIN,TOTAL 0.3 MG/DL (0.1-1.0); CALCIUM 9.6 MG/DL (8.5-10.1); CREATININE SERUM 0.77 MG/DL (0.60-1.30); POTASSIUM 4.2 MMOL/L (3.6-5.0)
== END 2021-11-20 | disposition home or self-care (01) ==
LOC: ONC 09:00
PROVIDERS: ATTEND Internal Medicine Hematology & Oncology
DX: C82.90 Follicular lymphoma, unspecified, unspecified site (principal)
CPT/HCPCS: 36415; 80053; 82728; 83540; 83550; 83615; 84443; 85025

== ENCOUNTER → 2021-11-16 | Outpatient (CLI) | payer MEDICARE, MEDICAID ==
[~2021-11-16] MED LIST changes: +CATHETER FLUSH 10 ML SYR IV PRN; +HOLD METFORMIN - RECEIVED CONTRAST 20 ML VIAL IV SCH; +IOHEXOL 350 MG/ML 100 ML (OMNIPAQUE 350) VIAL IV ONE; +NS 100 ML (IVPB) BAG IV ONE
--- NOTE | 2021-11-16 11:26 | Diagnostic Imaging Report ---
EXAMINATION: CT neck and chest with contrast. CT abdomen with and without intravenous contrast. CT pelvis with contrast. TECHNIQUE: Multiple contiguous axial images were obtained through the neck, chest, abdomen and pelvis after the uneventful administration of intravenous contrast. Pre-contrast images of the abdomen were also obtained. All CT scans use one or more of the following dose optimizing techniques: automated exposure control, MA and/or KvP adjustment based on patient size and exam typ or iterative reconstruction. HISTORY: Lymphoma. COMPARISON: 02/23/2009 FINDINGS: Neck CT: Scattered subcentimeter lymph nodes are seen in the neck. None are pathologically enlarged or abnormally enhancing. Cervical lymph nodes remain subcentimeter in short axis. The muscles of the neck are normal. Vessels of the neck demonstrate normal course and caliber. Fascial planes are preserved and the deep spaces of the neck are normal. The visualized airway is widely patent. The base of the skull and the temporal bones are normal. Limited views of the brain including the cerebellum and brainstem are normal. The limited view of the [place] is unremarkable. The visualized portions of the orbits are normal. The spinal canal is normal in caliber. Intervertebral disk heights are normal. Neural foramina are normal. Chest CT: The lungs are clear without edema or pneumonia. No pleural effusion or pneumothorax. No suspicious nodules. There is no axillary or supraclavicular lymphadenopathy. There is no mediastinal lymphadenopathy. Heart size is normal. There are no coronary artery calcifications. There is an old infarct at the apex. No pericardial effusion. Aorta is normal in caliber. Abdomen and pelvis CT: The liver is normal without focal lesion. There is no biliary ductal dilation. Gallbladder is absent. Pancreas is normal. Spleen is normal. Adrenal glands are normal. There is a simple cyst in the left kidney. No suspicious renal lesions. There is no hydronephrosis. Urinary bladder is normal. Visualized bowel is normal in caliber without obstruction or inflammation. There has been a gastric sleeve resection. No free fluid or air. No abdominal lymphadenopathy. Aorta is normal in caliber without aneurysm. There are no suspicious osseous lesions. There is right total hip arthroplasty. Spinal stimulator is present. IMPRESSION: 1. No acute abnormality in the neck, chest, abdomen or pelvis. No lymphadenopathy. Dictated by: Dictated on workstation # [id number]
== END ==
LOC: RAD 09:17
PROVIDERS: ATTEND Internal Medicine Hematology & Oncology
DX: C82.80 Other types of follicular lymphoma, unspecified site (principal); Z90.49 Acquired absence of other specified parts of digestive tract
CPT/HCPCS: 70491; 71260; 74178

== ENCOUNTER 2021-11-30 10:28 | Outpatient (RCR) | payer MEDICARE, MEDICAID ==
[2021-11-30 10:45] LABS: BASOPHILS % (AUTO) 1 % (0-10); EOSINOPHILS # (AUTO) 0.2 10^3/uL (0.0-0.3); EOSINOPHILS % (AUTO) 4 % (0-10); HEMATOCRIT 39 % (35-52); HEMOGLOBIN 12.7 g/dL (11.5-16.0); LYMPHOCYTES # (AUTO) 1.1 10^3/uL (1.0-4.0); LYMPHOCYTES % (AUTO) 22 % (12-44); MEAN CORPUSCULAR HEMOGLOBIN 29 pg (25-34); MEAN CORPUSCULAR HGB CONC 33 g/dL (32-36); MEAN CORPUSCULAR VOLUME 89 fL (80-99); MONOCYTES # (AUTO) 0.4 10^3/uL (0.0-1.0); MONOCYTES % (AUTO) 7 % (0-12); NEUTROPHILS # (AUTO) 3.4 10^3/uL (1.8-7.8); NEUTROPHILS % (AUTO) 66 % (42-75); PLATELET COUNT 199 10^3/uL (130-400); WHITE BLOOD COUNT 5.2 10^3/uL (4.3-11.0)
[2021-11-30 11:31] LABS: CALCIUM 9.2 MG/DL (8.5-10.1); POTASSIUM 4.5 MMOL/L (3.6-5.0)
[2021-11-30 12:12] LABS: BILIRUBIN,TOTAL 0.3 MG/DL (0.1-1.0); CREATININE SERUM 0.79 MG/DL (0.60-1.30); TOTAL PROTEIN 6.4 GM/DL (6.4-8.2)
== END 2021-12-21 | disposition home or self-care (01) ==
LOC: ONC 10:28
PROVIDERS: ATTEND Internal Medicine Hematology & Oncology
DX: C82.20 Follicular lymphoma grade III, unspecified, unspecified site (principal); D50.9 Iron deficiency anemia, unspecified; E03.9 Hypothyroidism, unspecified; E23.6 Other disorders of pituitary gland
CPT/HCPCS: 80053; 83615; 84443; 85025; G0463; 36415; 99213

== ENCOUNTER → 2022-06-08 | Outpatient (CLI) | payer MEDICARE, MEDICAID ==
[~2022-06-08] MED LIST changes: +HOLD METFORMIN - RECEIVED CONTRAST 20 ML VIAL IV SCH; +IOHEXOL 350 MG/ML 100 ML (OMNIPAQUE 350) VIAL IV ONE; +NS 100 ML (IVPB) BAG IV ONE
--- NOTE | 2022-06-08 11:17 | Diagnostic Imaging Report ---
EXAMINATION: CT neck, chest, abdomen and pelvis with intravenous contrast. TECHNIQUE: Multiple contiguous axial images were obtained through the neck, chest, abdomen and pelvis after the uneventful administration of intravenous contrast. All CT scans use one or more of the following dose optimizing techniques: automated exposure control, MA and/or KvP adjustment based on patient size and exam type or iterative reconstruction. HISTORY: Lymphoma. COMPARISON: 11/16/2021 FINDINGS: Neck CT: A 1.0 cm level two lymph node on the left previously measured 0.7 cm (series 6, image 49). This is near to the palpable marker a left supraclavicular node measures 1.6 cm, previously 1.2 cm, but not directly underneath it. The muscles of the neck are normal. Vessels of the neck demonstrate normal course and caliber. Fascial planes are preserved and the deep spaces of the neck are normal. The visualized airway is widely patent. The base of the skull and the temporal bones are normal. Limited views of the brain including the cerebellum and brainstem are normal. The limited view of the [place] is unremarkable. The visualized portions of the orbits are normal. Chest CT: There is no edema or pneumonia. No pleural effusion. No pneumothorax. No suspicious nodules. There is no axillary or supraclavicular lymphadenopathy. There is no mediastinal lymphadenopathy. There is an old LAD territory infarct. Heart size is normal. There are no coronary artery calcifications. No pericardial effusion. Aorta is normal in caliber. Abdomen and Pelvis CT: The liver is normal without focal lesion. There is no biliary ductal dilation. Gallbladder is absent. Pancreas is normal. Spleen is normal. Adrenal glands are normal. There is a simple cyst in left kidney. No suspicious renal lesion. There is no hydronephrosis. Urinary bladder is normal. Bowel is normal in caliber without obstruction or inflammation. No free fluid or air. No abdominal or pelvic lymphadenopathy. Aorta is normal in caliber without aneurysm. There are no suspicious osseous lesions. There is a right hip arthroplasty. IMPRESSION: 1. Increase in size of mildly enlarged lymph nodes in the left neck. 2. No lymphadenopathy in the chest, abdomen or pelvis. Dictated by: Dictated on workstation # [id number]
== END ==
LOC: RAD 08:22
PROVIDERS: ATTEND Internal Medicine Hematology & Oncology
DX: C82.80 Other types of follicular lymphoma, unspecified site (principal); R59.0 Localized enlarged lymph nodes
CPT/HCPCS: 70491; 71260; 74176

== ENCOUNTER 2022-06-10 14:46 | Outpatient (RCR) | payer MEDICARE, MEDICAID ==
[2022-05-31 13:21] LABS: BASOPHILS % (AUTO) 0 % (0-10); EOSINOPHILS # (AUTO) 0.1 10^3/uL (0.0-0.3); EOSINOPHILS % (AUTO) 2 % (0-10); HEMATOCRIT 40 % (35-52); HEMOGLOBIN 13.1 g/dL (11.5-16.0); LYMPHOCYTES # (AUTO) 1.3 10^3/uL (1.0-4.0); LYMPHOCYTES % (AUTO) 27 % (12-44); MEAN CORPUSCULAR HEMOGLOBIN 28 pg (25-34); MEAN CORPUSCULAR HGB CONC 33 g/dL (32-36); MEAN CORPUSCULAR VOLUME 86 fL (80-99); MEAN PLATELET VOLUME 10.2 fL (9.0-12.2); MONOCYTES # (AUTO) 0.3 10^3/uL (0.0-1.0); MONOCYTES % (AUTO) 6 % (0-12); NEUTROPHILS # (AUTO) 3.1 10^3/uL (1.8-7.8); NEUTROPHILS % (AUTO) 64 % (42-75); PLATELET COUNT 193 10^3/uL (130-400); WHITE BLOOD COUNT 4.9 10^3/uL (4.3-11.0)
[2022-05-31 13:42] LABS: BILIRUBIN,TOTAL 0.2 MG/DL (0.1-1.0); CALCIUM 9.2 MG/DL (8.5-10.1); CREATININE SERUM 0.81 MG/DL (0.60-1.30); POTASSIUM 4.3 MMOL/L (3.6-5.0); TOTAL PROTEIN 6.7 GM/DL (6.4-8.2)
[~2022-06-10 14:46] MED LIST changes: -HOLD METFORMIN - RECEIVED CONTRAST 20 ML VIAL IV SCH; -IOHEXOL 350 MG/ML 100 ML (OMNIPAQUE 350) VIAL IV ONE; -NS 100 ML (IVPB) BAG IV ONE
== END 2022-06-20 | disposition home or self-care (01) ==
LOC: ONC 14:46
PROVIDERS: ATTEND Internal Medicine Hematology & Oncology
DX: C82.20 Follicular lymphoma grade III, unspecified, unspecified site (principal); D50.9 Iron deficiency anemia, unspecified; E03.9 Hypothyroidism, unspecified; E23.6 Other disorders of pituitary gland
CPT/HCPCS: 36415; 80053; 85025

== ENCOUNTER 2022-07-28 05:58 | Outpatient (CLI) | payer MEDICARE, MEDICAID ==
[~2022-07-28] VITALS: Ht 160 cm; Wt 92.1 kg
[2022-07-28] MEDS ORDERED: GALC120S SQ (15:17)
[2022-07-28] MEDS ORDERED: DEXL60CA PO (15:17)
[2022-07-28] MEDS ORDERED: DULO60CA7 PO (15:53)
[2022-07-28] MEDS ORDERED: LEVO50CA4 PO (15:53)
[2022-07-28] MEDS ORDERED: HYDR-4164 PO (15:53)
[2022-07-28] MEDS ORDERED: CARB200T6 PO (15:53)
[2022-07-28] MEDS ORDERED: MECO10005 PO (15:53)
[2022-07-28] MEDS ORDERED: HYDR5TAB14 PO (15:53)
[2022-07-28] MEDS ORDERED: PYRI25TA3 PO (15:53)
[2022-07-28] MEDS ORDERED: GABA-486 PO (15:53)
[2022-07-28] MEDS ORDERED: CHOL500049 PO (15:53)
== END 2022-07-28 16:01 | disposition home or self-care (01) ==
LOC: PREOP 05:58
PROVIDERS: ATTEND Surgery
DX: Z01.818 Encounter for other preprocedural examination (principal)

== ENCOUNTER 2022-08-05 11:18 | Day surgery (SDC) | payer MEDICARE, MEDICAID ==
[~2022-08-05] VITALS: Ht 165.1 cm; Wt 92.1 kg
[~2022-08-05 11:18] MED LIST changes: +CARB200T6 PO; +CHOL500049 PO; +DEXL60CA PO; +DULO60CA7 PO; +GABA-486 PO; +GALC120S SQ; +HYDR-4164 PO; +HYDR5TAB14 PO; +LEVO50CA4 PO; +MECO10005 PO; +PYRI25TA3 PO
[2022-08-05] MEDS ORDERED: LACTATED RINGERS 1,000 ML IV STA (11:35)
[2022-08-05] MEDS ORDERED: HURRICAINE EXT TUBE (BENZOCAINE) ONE (11:41)
[2022-08-05] MEDS ORDERED: LACTATED RINGERS 1,000 ML IV ONE (11:41)
[2022-08-05] MEDS ORDERED: HURRICAINE EXT TUBE (BENZOCAINE) XX PRN (11:45)
[2022-08-05 11:50] VITALS: BP 111/82
[2022-08-05] MEDS ORDERED: PROPOFOL INJECTION 50 ML IV ONE ×2 (12:07→12:44)
[2022-08-05] MEDS ORDERED: MIDAZOLAM 2 MG/2 ML (VERSED) VIAL ONE (12:07)
[2022-08-05 12:55] VITALS: BP 91/53
--- NOTE | 2022-08-05 12:59 | Progress Note-Post Operative ---
Post-Operative Progess Note Surgeon (s)/Internal Communications Specialist (s) Surgeon SHAWNA NIX DO Internal Communications Specialist: na Pre-Operative Diagnosis hx em's constipation Post-Operative Diagnosis normal colon, dilated gastric pouch Procedure & Operative Findings Date of Procedure 08/05/22 Procedure Performed/Findings egj c biopies, colonoscopy Anesthesia Type per switchboard operator Estimated Blood Loss Estimated blood loss (mL): none Specimens/Packing Specimens Removed ge SHAWNA NIX DO Aug 05, 2022 12:59
--- NOTE | 2022-08-05 13:02 | Discharge Inst-Simple/Standard ---
Discharge Inst-Standard Patient Instructions/Follow Up Plan of Care/Instructions/FU: 2 weeks Agatha Activity as Tolerated: Yes Discharge Diet: Regular Diet SHAWNA NIX DO Aug 05, 2022 13:02
[2022-08-05 13:05] VITALS: BP 93/55
--- NOTE | 2022-08-05 13:13 | Anesthesia-General Post-Op ---
MAC Patient Condition Mental Status/LOC: Same as Preop Cardiovascular: Satisfactory Nausea/Vomiting: Absent Respiratory: Satisfactory Pain: Controlled Complications: Absent Post Op Complications Complications None Follow Up Care/Instructions Patient Instructions None needed. Anesthesiology Discharge Order Discharge Order Patient is doing well, no complaints, stable vital signs, no apparent adverse anesthesia problems. No complications reported per nursing. GUADALUPE DE JESUS CRNA Aug 05, 2022 13:13
[2022-08-05 13:30] VITALS: BP 93/55
--- NOTE | 2022-08-05 20:38 | OPERATIVE REPORT ---
DATE OF SERVICE: 08/05/2022 PREOPERATIVE DIAGNOSES: History of Naqvi's esophagus, constipation. POSTOPERATIVE DIAGNOSES: Dilated gastric pouch, normal colon. PROCEDURE: Esophagogastrojejunoscopy with biopsies and colonoscopy. SURGEON: Shawna Snider DO ANESTHESIA: Per SOLE RUFFER. ESTIMATED BLOOD LOSS: None. COMPLICATIONS: None. INDICATIONS: The patient is a 61-year-old female, who has a history of Naqvi's esophagus and also has constipation. She understands risks and benefits of procedures and wished to proceed. Consent was signed in chart. DESCRIPTION OF PROCEDURE: The patient was taken to endoscopy suite, placed in left lateral recumbent position. Timeout was performed. Scope was inserted in the mouth, down the esophagus, stomach and to the jejunal limb. No polyps, masses or ulcerations. The anastomosis had normal appearance, no polyps, masses or ulcerations. Scope was slowly retracted back until stomach where she had the gastric pouch appears dilated. Scope was retroflexed noting no other pathology. Scope was returned to its normal position, slowly withdrawn until distal esophagus. Four quadrant biopsies were obtained. No polyps, masses or ulcerations. Scope was slowly retracted back until completely removed. Digital rectal exam was performed. No palpable polyps, masses or ulcerations. Scope was inserted in the rectum, advanced all the way to the cecum with minimal difficulty. Prep was adequate. Scope was slowly retracted back. No polyps, masses or ulcerations within the cecum, ascending, transverse, descending and sigmoid colon. Once in the rectum, scope was retroflexed noting no other pathology. Scope was returned to its normal position, slowly withdrawn until completely removed. The patient tolerated the procedure well without complications, taken to recovery room in stable condition. RECOMMENDATIONS: The patient will need repeat colonoscopy in 10 years unless family history of colon cancer, personal history of polyps, which will then be 5 years. Any issues before that, be seen at that time. Took biopsies. We will await biopsy results for further recommendations. Will likely need repeat endoscopy in 2-3 years. The patient to continue on current medications. Job ID: [id number] DocumentID: [id number] Dictated Date: 08/05/2022 13:05:58 Senior Scheduler Date: 08/05/2022 20:36:00 Dictated By: SHAWNA SNIDER DO
== END 2022-08-05 13:58 | disposition home or self-care (01) ==
LOC: ENDO 11:18
PROVIDERS: ATTEND Surgery
DX: K59.00 Constipation, unspecified (principal); K31.89 Other diseases of stomach and duodenum; Z87.891 Personal history of nicotine dependence; Z87.19 Personal history of other diseases of the digestive system

== ENCOUNTER → 2022-09-06 | Outpatient (CLI) | payer MEDICARE, MEDICAID ==
[~2022-09-06] MED LIST changes: +HOLD METFORMIN - RECEIVED CONTRAST 20 ML VIAL IV SCH; +IOHEXOL 350 MG/ML 100 ML (OMNIPAQUE 350) VIAL IV ONE; +NS 100 ML (IVPB) BAG IV ONE
--- NOTE | 2022-09-06 15:37 | Diagnostic Imaging Report ---
CT NECK/CHEST/ABDOMEN/PELVIS W INDICATION: Follicular lymphoma COMPARISON: 06/08/2022 TECHNIQUE: CT imaging of the neck, chest, abdomen and pelvis with IV contrast. Automatic exposure controls were utilized to keep dose as low as reasonably achievable. FINDINGS: CT NECK: The left-sided level 2A cervical lymph node now measures 0.9 cm (series 6, image 47), previously 1 cm. The left supraclavicular lymph node now measures 0.8 cm in length, (previously 1.6 cm). No new cervical lymphadenopathy on either side. Airway is widely patent. No abnormal wall thickening within the pharynx. Subcentimeter calcified left thyroid nodule is stable. No worrisome focal osseous lesions within the cervical spine. CT CHEST: No axillary, mediastinal or hilar lymphadenopathy has developed. The heart is normal in size without pericardial effusion. Normal caliber thoracic aorta. No abnormality in the trachea. There is no pneumonia or edema. No pleural effusion or pneumothorax. No suspicious pulmonary nodules. Normal regional skeleton. CT ABDOMEN AND PELVIS: No free intraperitoneal air or fluid. The liver is normal in size without focal abnormality. Cholecystectomy is again noted. Spleen and pancreas are normal in appearance. No adrenal mass. No renal mass or obstructive uropathy. The urinary bladder is decompressed. Stable postoperative changes of gastric sleeve. No bowel obstruction or pericolonic inflammatory change. A moderate amount of colonic stool is present. Normal caliber thoracic aorta. No abdominal or pelvic lymphadenopathy. No worrisome focal osseous lesions. Right total hip arthroplasty. IMPRESSION: 1. The mildly enlarged left cervical lymph nodes have decreased in size. 2. No lymphadenopathy has developed in the chest, abdomen or pelvis. Dictated by: Dictated on workstation # [id number]
== END ==
LOC: RAD 09:47
PROVIDERS: ATTEND Internal Medicine Hematology & Oncology
DX: C82.80 Other types of follicular lymphoma, unspecified site (principal); R59.9 Enlarged lymph nodes, unspecified
CPT/HCPCS: 70491; 71260; 74176

== ENCOUNTER 2022-09-09 14:39 | Outpatient (RCR) | payer MEDICARE, MEDICAID ==
[~2022-09-09 14:39] MED LIST changes: -HOLD METFORMIN - RECEIVED CONTRAST 20 ML VIAL IV SCH; -IOHEXOL 350 MG/ML 100 ML (OMNIPAQUE 350) VIAL IV ONE; -NS 100 ML (IVPB) BAG IV ONE
[2022-09-09 15:00] LABS: BASOPHILS % (AUTO) 1 % (0-10); EOSINOPHILS # (AUTO) 0.1 10^3/uL (0.0-0.3); EOSINOPHILS % (AUTO) 2 % (0-10); HEMATOCRIT 38 % (35-52); HEMOGLOBIN 12.6 g/dL (11.5-16.0); LYMPHOCYTES # (AUTO) 1.9 10^3/uL (1.0-4.0); LYMPHOCYTES % (AUTO) 41 % (12-44); MEAN CORPUSCULAR HEMOGLOBIN 29 pg (25-34); MEAN CORPUSCULAR HGB CONC 33 g/dL (32-36); MEAN CORPUSCULAR VOLUME 87 fL (80-99); MEAN PLATELET VOLUME 9.9 fL (9.0-12.2); MONOCYTES # (AUTO) 0.3 10^3/uL (0.0-1.0); MONOCYTES % (AUTO) 6 % (0-12); NEUTROPHILS # (AUTO) 2.3 10^3/uL (1.8-7.8); NEUTROPHILS % (AUTO) 49 % (42-75); PLATELET COUNT 209 10^3/uL (130-400); WHITE BLOOD COUNT 4.6 10^3/uL (4.3-11.0)
[2022-09-09 15:20] LABS: BILIRUBIN,TOTAL 0.2 MG/DL (0.1-1.0); CALCIUM 9.1 MG/DL (8.5-10.1); CREATININE SERUM 0.88 MG/DL (0.60-1.30); POTASSIUM 3.8 MMOL/L (3.6-5.0); TOTAL PROTEIN 6.6 GM/DL (6.4-8.2)
[2022-09-16] MEDS ORDERED: CYCL10TA25 PO (20:14)
== END 2022-09-20 | disposition home or self-care (01) ==
LOC: ONC 14:39
PROVIDERS: ATTEND Internal Medicine Hematology & Oncology
DX: C82.20 Follicular lymphoma grade III, unspecified, unspecified site (principal); D50.9 Iron deficiency anemia, unspecified; E03.9 Hypothyroidism, unspecified; E23.6 Other disorders of pituitary gland; Z98.0 Intestinal bypass and anastomosis status
CPT/HCPCS: 36415; 80053; 85025

== ENCOUNTER 2022-09-16 19:04 | Emergency (ER) | payer MEDICARE, MEDICAID ==
[~2022-09-16] VITALS: Ht 165.1 cm; Wt 90.7 kg
[2022-09-16 19:08] VITALS: BP 137/107
[2022-09-16] MEDS ORDERED: ORPHENADRINE 60 MG/2 ML (NORFLEX) AMP (ED ONLY) IM ONE (19:30)
[2022-09-16] MEDS ORDERED: KETOROLAC 30 MG/ML VIAL IM ONE (19:30)
--- NOTE | 2022-09-16 19:34 | ED Hip Pain/Injury ---
General Chief Complaint: Hip/Pelvic Problems Stated Complaint: LOW BACK/LEFT HIP PAIN Source: patient Exam Limitations: no limitations History of Present Illness Date Seen by Provider: Sep 16, 2022 Time Seen by Provider: 19:30 Initial Comments Patient is a 62-year-old female who presents ED with right anterior hip pain. Patient states yesterday she increased her walking. She states she walked near 9000 steps yesterday walking to different stores. She did her water therapy as well. Started having pain in her right groin and hip which only occurs with movement. Typically does not walk as much secondary to her migraines she gets relief when she sits down. She reports increased workload. she states with walking with her cane she gets that sharp pain around her hip. She does have a rating pain to the right posterior knee every once while. History of sciatica. She denies of any falls. Denies of any abdominal pain, pain with urination, free urination, fever, chills. History of right hip arthroplasty. History of lymphoma currently not being treated at this time. Patient denies any fever, chills, bodies, chest pain, shortness of breath. She topical muscle rub with some improvement. She took Tylenol Extra Strength at home with very minimal improvement. Allergies and Home Medications Allergies Coded Allergies: hydromorphone (Unverified Allergy, Unknown, 07/28/22) lithium (Verified Allergy, Unknown, 07/15/20) Patient Home Medication List Home Medication List Reviewed: Yes Carbamazepine (Carbamazepine) 200 Mg Tablet, 200 MG PO BID, (Reported) Entered as Reported by: ROSITA TOBAR on 07/28/221552 Cholecalciferol (Vitamin D3) (Vitamin D3) 1,250 Mcg (07775 Unit) Capsule, 1,250 MCG PO DAILY, (Reported) Entered as Reported by: ROSITA TOBAR on 07/28/221552 Cyclobenzaprine HCl (Cyclobenzaprine HCl) 10 Mg Tablet, 10 MG PO TID Prescribed by: KENZIE MARSHALL on 09/16/222013 Dexlansoprazole (Dexilant) 60 Mg Cap., 60 MG PO DAILY, (Reported) Entered as Reported by: ROSITA TOBAR on 07/28/22 151 Duloxetine HCl (Cymbalta) 60 Mg Capsule.dr 60 MG PO BID, (Reported) Entered as Reported by: ROSITA TOBAR on 07/28/221552 Gabapentin (Gabapentin) 100 Mg Capsule, 100 MG PO Q8H, (Reported) Entered as Reported by: ROSITA TOBAR on 07/28/221552 Galcanezumab-Gnlm (Emgality Syringe) 120 Mg/Ml Syringe, 120 MG SQ WEEK, (Reported) Entered as Reported by: ROSITA TOBAR on 07/28/221516 Hydrocortisone (Hydrocortisone) 10 Mg Tablet, 10 MG PO DAILY, (Reported) Entered as Reported by: ROSITA TOBAR on 07/28/221552 Hydrocortisone (Hydrocortisone) 5 Mg Tablet, 5 MG PO HS, (Reported) Entered as Reported by: ROSITA TOBAR on 07/28/221552 Levothyroxine Sodium (Levothyroxine) 50 Mcg Capsule, 50 MCG PO DAILY, (Reported) Entered as Reported by: ROSITA TOBAR on 07/28/221552 Mecobalamin (B12 Active) 1,000 Mcg Tab.chew, 1,000 MCG PO DAILY, (Reported) Entered as Reported by: ROSITA TOBAR on 07/28/221552 Pyridoxine HCl (Vitamin B-6) 25 Mg Tablet, 25 MG PO DAILY, (Reported) Entered as Reported by: ROSITA TOBAR on 07/28/221552 Review of Systems Constitutional: No chills, No diaphoresis EENTM: No blurred vision Respiratory: No cough, No dyspnea on exertion Cardiovascular: No chest pain Gastrointestinal: No abdominal pain, No diarrhea, No nausea, No vomiting Genitourinary: No decreased output, No discharge Musculoskeletal: No back pain; joint pain, joint swelling, muscle pain Skin: No change in color, No change in hair/nails All Other Systems Reviewed Negative Unless Noted: Yes Past Qryljid-Weoyrf-Ctjcqb Hx Immunizations Up To Date First/Initial COVID19 Vaccinat: 12/11 Second COVID19 Vaccination Rony: 12/11 Third COVID19 Vaccination Date: YES Seasonal Allergies Seasonal Allergies: Yes Past Medical History Surgery/Hospitalization HX: Craniotomy 2020, viral meningitis, CVA x2, Felipe's disease, non-hodgikins lymphoma, adrenal deficiency Surgeries: Yes (GASTRIC BYPASS/HERNIA/EYE/FOOT/BRAIN) Abdominal, Appendectomy, Gallbladder, Hysterectomy, Joint Replacement, Neurological, Oophorectomy, Orthopedic Respiratory: Yes (COVID-19 INFECTION 08/2020 WITH RESP FAILURE-NO VENTILATOR) COPD Cardiac: No Neurological: Yes (09/2020-VIRAL MENINGITIS/BRAIN ABSCESS) Seizure Disorder, 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 Sexually Transmitted Disease: Yes (HERPES) Genitourinary: No Gastrointestinal: Yes (S/P GASTRIC BYPASS; CHOLECYSTECTOMY) Gastroesophageal Reflux, Gall Bladder Disease Musculoskeletal: Yes (CHRONIC PAIN COMPLAINTS-R SHOULDER,R HIP,BACK;S/P L-SPINE SURG;SPINE STIMUL) Degenerate Disk Disease, Arthritis, Back Injury, Chronic Back Pain, Spasms Endocrine: Yes (ADDISION'S DISEASE; GRAVE'S DISEASE; MORBID OBESITY) Hypothyroidsim HEENT: No Cancer: Yes (NON-HODGKIN'S LYMPHOMA DX 1999, S/P CHEMO) Lymphoma Did You Recieve Any Treatments: Yes What Type of Treatment Did You: Chemotherapy Psychosocial: Yes Anxiety, Bipolar, Depression Integumentary: No Blood Disorders: Yes (LYMPHOMA) Adverse Reaction/Blood Tranf: No Family Medical History PAST SURGICAL HISTORY: -HYSTERECTOMY/BILATERAL SALPINGO-OOPHORECTOMY -GASTRIC BYPASS -LUMBAR SPINE SURGERY -SPINAL STIMULATOR -OPEN CHOLECYSTECTOMY -APPENDECTOMY -RIGHT HIP REPLACEMENT WITH REVISION -CRANIOTOMY 09/21/20 IN [place] FOR BRAIN ABSCESS 09/12/20--ADMITTED HERE AND THEN TRANSFERRED TO [facility], [place] WITH DX OF COVID-19 WITH RESPIRATORY FAILURE--NO VENTILATOR, SEPTIC SHOCK, ACUTE KIDNEY INJURY, VIRAL MENINGITIS, CVA X 2, WITH SUBSEQUENT BRAIN ABSESS, REQUIRING A CRANIOTOMY. Physical Exam Vital Signs Vital Signs - First Documented 09/16/22 19:08 Temp 37.7 Pulse 87 Resp 18 B/P (MAP) 137/107 (117) Pulse Ox 95 O2 Delivery Room Air Capillary Refill : Height, Weight, BMI Height: '" Weight: lbs. oz. kg; 33.78 BMI Method: General Appearance: No Apparent Distress, WD/WN HEENT: PERRL/EOMI, TMs Normal, Normal ENT Inspection, Pharynx Normal Neck: Full Range of Motion, Normal Inspection, Non Tender, Supple Cardiovascular: Regular Rate, Rhythm, No Edema, No Gallop, No JVD Respiratory: Chest Non Tender, Lungs Clear, Normal Breath Sounds, No Accessory Muscle Use, No Respiratory Distress Gastrointestinal: Normal Bowel Sounds, No Organomegaly, No Pulsatile Mass, Soft Back: Normal Inspection, No CVA Tenderness, No Vertebral Tenderness Extremity: Normal Capillary Refill, Normal Range of Motion, Non Tender, No Calf Tenderness, Other (Pain with internal rotation of the right hip. 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 Norm as Tested Progress/Results/Core Measures Results/Orders My Orders Orders - CLARIBEL DANIELS Pelvis With Right Hip 2-3views (09/16/22 19:29) Ketorolac Injection (Toradol Injection) (09/16/22 19:30) Orphenadrine Inj (Ed Only) (Norflex Inje (09/16/22 19:30) Rx-Hydrocodone/Apap 5-325 Mg (Rx-Vicodin (09/16/22 20:15) Medications Given in ED Current Medications Medications Dose Ordered Sig/Trino Route Start Time Stop Time Status Last Admin Dose Admin Acetaminophen/ Hydrocodone Bitart 1 ea ONCE ONCE PO 09/16/22 20:15 09/16/22 20:16 DC 09/16/22 20:20 1 EA Ketorolac Tromethamine 30 mg ONCE ONCE IM 09/16/22 19:30 09/16/22 19:31 DC 09/16/22 19:51 30 MG Orphenadrine Citrate 60 mg ONCE ONCE IM 09/16/22 19:30 09/16/22 19:31 DC 09/16/22 19:51 60 MG Vital Signs/I&O 09/16/22 19:08 Temp 37.7 Pulse 87 Resp 18 B/P (MAP) 137/107 (117) Pulse Ox 95 O2 Delivery Room Air Departure Communication (PCP) Reviewed previous ER visits, H&P, lab testing. History of right hip arthroplasty. Complaining of right anterior hip pain that occurs with movement. No abdominal pain or flank pain. She does have pain that shoots down into her right posterior knee. She has no neurological red flag findings suggesting emergent imaging. She is concern for her right hip pain. She does have some pain with internal rotation of the right hip. Neurovascular intact bilateral lower extremities. Soft abdomen. No flank tenderness. She did receive a dose of Toradol and Norflex. X-ray of the right hip shows postoperative changes without any acute abnormality or lucency. Patient states she is feeling much better at this time. This appears more muscular in nature. Continue with your Tylenol and topical muscle rub. We will provide a few days worth of stronger pain medication. Likely as a result of increased activity yesterday. Suggest a step ladder approach when increasing your workload. She does have a cane. If any worsening symptoms return back to ED for further evaluation. Patient does not have any urinary symptoms. No flank tenderness. No thoracic or lumbar midline tenderness suggesting further imaging or lab work Impression Primary Impression: Right hip pain Disposition: HOME, SELF-CARE Condition: Stable Departure-Patient Inst. Decision time for Depature: 20:14 Referrals: FERNANDA MIRANDA DO (PCP/Family) Primary Care Physician Patient Instructions: Hip Pain (DC) Add. Discharge Instructions: Take pain medication as needed. Follow-up your primary care physician for further evaluation. All discharge instructions reviewed with patient and/or family. Voiced understanding. Scripts Cyclobenzaprine HCl (Cyclobenzaprine HCl) 10 Mg Tablet 10 MG PO TID, #14 TAB Prov: CLARIBEL DANIELS 09/16/22 CLARIBEL DANIELS Sep 16, 2022 19:34
--- NOTE | 2022-09-16 20:03 | Diagnostic Imaging Report ---
EXAMINATION: Right hip unilateral 2 or 3 views (w/pelvis when done) HISTORY: Pain. EXAMINATION: Pelvis and right hip from 09/16/2022. COMPARISON: 08/05/2020 FINDINGS: 4 views of the pelvis and right hip. There is a total hip prosthesis on the right, intact. No evidence for loosening. No fracture. Left hip intact. No acute pelvic fractures. IMPRESSION: 1. Postoperative change unremarkable. No acute osseous abnormality. Dictated by: Dictated on workstation # [id number]
[2022-09-16] MEDS ORDERED: CYCL10TA25 PO (20:14)
== END 2022-09-16 20:23 | disposition home or self-care (01) ==
LOC: EDUNIT# 19:04 → ER 19:06
DX: M25.551 Pain in right hip (principal); E66.01 Morbid (severe) obesity due to excess calories; Z96.641 Presence of right artificial hip joint; Z86.16 Personal history of COVID-19; Z68.33 Body mass index [BMI] 33.0-33.9, adult